=== PATIENT | female | born 1960 | race Caucasian/White ===

== ENCOUNTER → 2016-04-30 | Outpatient (CLI) | payer BC ==
[~2016-04-30] MED LIST: ACET-2303 PO; CATHETER FLUSH 10 ML SYR IV PRN; CPR500T PO; CYCL10TA9 PO; HYOS0.1217 PO; KETO-22 PO; LACT1CAP62 PO; LEVO150T6 PO; LEVO175T31 PO; LEVO75TA6 PO; METF-760 PO; METF500T8 PO; METR500T PO; MULT-974 PO; OMG1KC PO; ONDAN4ODT PO; OXYC-197 PO; PANT40TA3 PO; PNT40TEC PO; TRAM50TA2 PO; TRAZ50TA67 PO; TRM50T PO
--- OUTSIDE RECORDS SUMMARY | 2016-04-30 10:35 | XMS REPORT | Continuity of Care Document ---
Author Author [facility] Organization [facility] Address Unknown Phone Unavailable Care Team Providers Care Steel Burner Name Role Phone BETH BAIN DO PCP Insurance Providers Payer Name Policy Number Subscriber Name Relationship [facility] [id number] Kay Osman Self / Same As Patient Advance Directives Directive Response Recorded Date/Time Advance Directives No 06/06/15 11:18am Health Care Power of Mission Coordinator No 06/06/15 11:18am Organ Donor No 06/06/15 11:18am Problems Active Problems Medical Problem Onset Date Status Small bowel obstruction Unknown Acute Medications Current Home Medications Medication Dose Units Route Directions Days/Qty Instructions Start Date Trazodone Hcl 50 Mg 50 Mg Oral Bedtime 05/30/12 Acetaminophen 500 Mg 1,000 Mg Oral Twice A Day TAKES 2 (500MG) TABLETS TWICE DAILY 05/30/12 Levothyroxine Sodium 150 Mcg 150 Mcg Oral Daily 06/01/15 Pantoprazole Sodium 40 Mg 40 Mg Oral Daily 06/01/15 Lactobacillus Acidophilus 1 Each 1 Each Oral Daily 06/01/15 Metformin Hcl 500 Mg 500 Mg Oral Daily 06/01/15 Past Home Medications Medication Directions Ordered Status Levothyroxine Sodium 175 Mcg Tablet, 175 Mcg Oral Daily 05/30/12 Discontinued Ciprofloxacin 500 Mg Tablet, 1 Tab Oral Twice A Day 05/30/12 Discontinued Metronidazole 500 Mg Tab, 1 Each Oral Three Times A Day 05/30/12 Discontinued Hyoscyamine Sulfate (Levsin) 0.125 Mg/Tab Tab.rapdis, 1 - 2 Each Oral Q4hr Prn 05/30/12 Discontinued Ketorolac Tromethamine 10 Mg Tablet, 10 Mg Oral Every 6 Hours as needed 05/30 Discontinued Tramadol Hcl 50 Mg Tab, 50 Mg Oral Q4-6HOURS as needed 05/30/12 Discontinued Ondansetron Hcl 4 Mg Tab, 4 Mg Oral Every 4HRS 05/30/12 Discontinued Cyclobenzaprine Hcl (Flexeril) 10 Mg Tablet, 1 Each Oral Q8hr Prn 06/04/12 Discontinued Fish Oil 1,000 Mg Cap, 1000 Mg Oral Daily 01/14/13 Discontinued Multivitamin 1 Each Tablet, 1 Tab Oral Daily 01/14/13 Discontinued Pantoprazole Sodium 40 Mg Tablet.dr, 1 Tab Oral Daily 01/16/13 Discontinued Social History Social History Problem Response Recorded Date/Time Alcohol Use Denies Use 01/14/2013 4:45am Recreational Drug Use No 01/14/2013 4:45am Recent Foreign Travel No 01/14/2013 4:45am Recent Infectious Disease Exposure No 01/14/2013 4:45am Hospitalization with Isolation Denies 01/16/2013 2:28pm Do you dip or chew tobacco? No 06/06/2015 11:15am Hospital Discharge Instructions No hospital discharge instructions. Plan of Care Discharge Date 08/17/15 6:40am Prescriptions See Medication Section Functional Status No functional status results. Allergies, Adverse Reactions, Alerts Allergen Type Severity Reaction Status Last Updated Sulfa (Sulfonamide Antibiotics) ([id number]) Adverse Reaction Mild MOUTH SORES Active 05/30/12 hydrocodone ([id number]) Adverse Reaction Mild DIZZINESS, NAUSEA Active DEMEROL Adverse Reaction Mild VOMITING Active 05/30/12 Immunizations Name Given Type Date of Influenza Vaccine 12/11/12 Historical Tetanus Booster (TDap) Unknown Historical Vital Signs No known vital signs results. Results No known relevant diagnostic tests, laboratory data and/or discharge summary. Procedures No known history of procedures. Encounters Encounter Location Arrival/Admit Date Discharge/Depart Date Attending Provider Registered Clinic [facility] 08/16/15 9:15pm PUJA CHRISTINE APRN
--- NOTE | 2016-04-30 16:08 | Diagnostic Imaging Report ---
EXAMINATION: HIDA with EF measurements Indication: Abdominal pain TECHNIQUE: After the intravenous administration of 5.2 mCi of Tc 99m Choletec, imaging over the abdomen was obtained. This was followed by administration of Ensure orally to stimulate intrinsic CCK secretion, followed by continued imaging with ejection fraction measured. FINDINGS: There is homogeneous uptake in the liver with prompt bile duct and gallbladder filling seen. Bowel activity is seen at 65 minutes. Based on further imaging and gallbladder area of interest activity measurements after the administration of Ensure, the gallbladder ejection fraction is estimated at 44%. IMPRESSION: 1. Normal hepatobiliary uptake and Gallbladder filling. 2. Borderline gallbladder ejection fraction. Correlate clinically. Dictated by: Dictated on workstation # [id number]
== END ==
LOC: CARD 10:32
PROVIDERS: ATTEND Nurse Practitioner Family
DX: R10.11 Right upper quadrant pain (principal)
CPT/HCPCS: 78227

== ENCOUNTER 2016-05-17 09:07 | Outpatient (CLI) | payer BC ==
[~2016-05-17] VITALS: Ht 167.6 cm; Wt 136.6 kg
[~2016-05-17 09:07] MED LIST changes: -CATHETER FLUSH 10 ML SYR IV PRN; -LEVO75TA6 PO; -METF-760 PO; -OXYC-197 PO; -TRAM50TA2 PO
[2016-05-17] MEDS ORDERED: TRAM50TA2 PO (09:22)
[2016-05-17] MEDS ORDERED: METF-760 PO (09:22)
[2016-05-17] MEDS ORDERED: LEVO75TA6 PO (09:22)
[2016-05-17 09:32] VITALS: BP 123/79
[2016-05-17 10:11] LABS: BASOPHILS % (AUTO) 0 % (0-10); EOSINOPHILS # (AUTO) 0.1 10^3/uL (0.0-0.3); EOSINOPHILS % (AUTO) 1 % (0-10); LYMPHOCYTES # (AUTO) 2.7 X 10^3 (1.0-4.0); LYMPHOCYTES % (AUTO) 46 % (12-44); MEAN CORPUSCULAR HEMOGLOBIN 33 PG (25-34); MEAN CORPUSCULAR HGB CONC 33 G/DL (32-36); MEAN CORPUSCULAR VOLUME 99 FL (80-99); MEAN PLATELET VOLUME 11.4 FL (7.4-10.4); MONOCYTES # (AUTO) 0.4 X 10^3 (0.0-1.0); MONOCYTES % (AUTO) 8 % (0-12); NEUTROPHILS # (AUTO) 2.6 X 10^3 (1.8-7.8); NEUTROPHILS % (AUTO) 44 % (42-75); PLATELET COUNT 177 10^3/uL (130-400); RED BLOOD COUNT 4.07 10^6/uL (4.35-5.85); RED CELL DISTRIBUTION WIDTH 12.1 % (10.0-14.5); WHITE BLOOD COUNT 5.8 10^3/uL (4.3-11.0)
[2016-05-24] MEDS ORDERED: OXYC-197 PO (10:02)
== END 2016-05-17 10:05 | disposition home or self-care (01) ==
LOC: PREOP 09:07
PROVIDERS: ATTEND Surgery Pediatric Surgery
DX: Z01.818 Encounter for other preprocedural examination (principal); Z11.2 Encounter for screening for other bacterial diseases; K82.8 Other specified diseases of gallbladder
CPT/HCPCS: 36415; 85025; 87081

== ENCOUNTER 2016-05-24 07:10 | Day surgery (SDC) | payer BC ==
[~2016-05-24] VITALS: Ht 167.6 cm; Wt 136.6 kg
[~2016-05-24 07:10] MED LIST changes: +LEVO75TA6 PO; +METF-760 PO; +TRAM50TA2 PO
[2016-05-24] MEDS ORDERED: BUP/EPI 0.5% 1:200,000 (SENSORCAINE) 30 ML VIAL ONE (07:30)
[2016-05-24] MEDS ORDERED: ceFAZolin 1 GM/NS 50 ML IVPB IV ONE ×2 (07:30)
[2016-05-24] MEDS ORDERED: fentaNYL INJECTION 250 MCG/5 ML AMP ONE (07:49)
[2016-05-24] MEDS ORDERED: ROCURONIUM 50 MG/5 ML (ZEMURON) VIAL IV ONE (07:49)
[2016-05-24] MEDS ORDERED: proPOfol 200 MG/20 ML (DIPRIVAN) VIAL IV ONE (07:49)
[2016-05-24] MEDS: LACTATED RINGERS 1,000 ML IV PRN ×2 (07:55→09:00)
--- NOTE | 2016-05-24 07:58 | Progress Note-Pre Operative ---
Pre-Operative Progress Note H&P Reviewed The H&P was reviewed, patient examined and no changes noted. Date H&P Reviewed: May 24, 2016 Time H&P Reviewed: 07:45 Pre-Operative Diagnosis: Biliary dyskinesia MARTIN SHANNON TMH TEACHER May 24, 2016 7:58 am
[2016-05-24] MEDS ORDERED: oxyCODONE/APAP 5/325MG (PERCOCET 5) TABLET PO PRN (08:00)
[2016-05-24] MEDS ORDERED: ONDANSETRON 4 MG/2 ML (SDV) Z0FRAN IVP PRN (08:00)
[2016-05-24] MEDS ORDERED: ACETAMINOPHEN 325 MG TABLET/CAPLET (TYLENOL) PO PRN (08:00)
[2016-05-24] MEDS ORDERED: morphine INJ 10 MG/ML 1ML (SYR OR VIAL) IVP PRN (08:00)
[2016-05-24] MEDS ORDERED: FAMOTIDINE 20MG/2ML IV (PEPCID) IV ONE (08:00)
[2016-05-24] MEDS ORDERED: SEVOFLURANE (ULTANE) 15 ML INHAL SOLN ONE (09:15)
[2016-05-24] MEDS ORDERED: ONDANSETRON 4 MG/2 ML (SDV) Z0FRAN ONE ×2 (09:15→10:47)
[2016-05-24] MEDS ORDERED: KETOROLAC 30 MG/ML VIAL ONE (09:15)
[2016-05-24] MEDS ORDERED: LABETALOL HCL 20 MG/4 ML VIAL ONE (09:15)
[2016-05-24] MEDS ORDERED: LACTATED RINGERS 2,000 ML IV ONE (09:15)
--- NOTE | 2016-05-24 09:59 | Progress Note-Post Operative ---
Post-Operative Progess Note Surgeon (s)/Ship Design Teacher (s) Surgeon ALEJANDRINA PERRIN MD Ship Design Teacher: [facility] Pre-Operative Diagnosis Biliary dyskinesia Post-Operative Diagnosis chronic acalculous cholecytitis. Post-Op Procedure Note Date of Procedure: May 24, 2016 Name of Procedure Performed: laparoscopic cholecystectomy Description of the Procedure: laparoscopic cholecystectomy Findings of the Procedure . Anesthesia Type GET Estimated blood loss (mL): minimal Specimen(s) collected/removed gallbladder ALEJANDRINA PERRIN MD May 24, 2016 9:59 am
[2016-05-24] MEDS ORDERED: OXYC-197 PO (10:02)
--- NOTE | 2016-05-24 10:04 | Discharge Inst-Surgical ---
D/C Lap Instructions-KIDO New, Converted, or Re-Newed RX: RX on Chart Follow Up Appt in 2 weeks Activity as tolerated No driving for 24 hours No driving while on pain medications Incentive Spirometry use every 2 hours while awake High Fiber Diet 25g or more per day Avoid Alcohol, Caffeine, Spicy [place] and Acid foods. Drink 64 fluid oz or more of fluids per day. Symptoms to Report: Fever over 101 degree F, Nausea/Vomiting If any problems/questions: Contact your physician or go to Emergency Room ALEJANDRINA PERRIN MD May 24, 2016 10:04
[2016-05-24] MEDS ORDERED: ONDANSETRON 4 MG/2 ML (SDV) Z0FRAN IV PRN (10:15)
[2016-05-24] MEDS ORDERED: morphine INJ 10 MG/ML 1ML (SYR OR VIAL) IV PRN (10:15)
[2016-05-24 11:05] VITALS: BP 156/86
[2016-05-24 11:35] VITALS: BP 143/75
[2016-05-24 12:05] VITALS: BP 138/91
[2016-05-24 13:51] VITALS: BP 138/91
--- NOTE | 2016-05-24 13:54 | OPERATIVE REPORT ---
PROCEDURE PHYSICIAN: ALEJANDRINA WILKINSON DATE OF PROCEDURE: 05/24/2016 ATTENDING PRIMARY CARE PHYSICIAN: Dr. Bird. PREOPERATIVE DIAGNOSIS: Symptomatic biliary dyskinesia. POSTOPERATIVE DIAGNOSIS: Symptomatic chronic acalculous cholecystitis. PROCEDURE: Laparoscopic cholecystectomy. SURGEON: Dr. Wilkinson. TAX COLLECTOR: Bert Farr APRN. ANESTHESIA: General endotracheal. ESTIMATED BLOOD LOSS: Minimal. FINDINGS: Chronic gallbladder wall inflammation, significant liver steatosis. DISPOSITION: The patient tolerated the procedure well. Ms. Kay Osman is a 55-year-old female known to us. She was initially seen in January 2006 for a large cyst of the distal right inner thigh and found to have a chronically infected cystic lesion and underwent incision and drainage. She reports that in the past 3 to 4 she has had pain in the right upper abdominal quadrant with radiation towards her back. She also reports this is worse after eating and she also reports abdominal epigastric bloating. She had ultrasound performed November 2015 which did not show any stones. She then underwent a HIDA scan which did show low ejection fraction and she did have severe reproduction of symptoms consistent with a symptomatic biliary dyskinesia. The patient was brought to the operating room and laid supine on the table. After adequate IV pain and sedative medications and general endotracheal intubation the abdomen was prepped and draped in standard surgical fashion. 0.5% Marcaine with epinephrine was then used to anesthetize the overlying skin in the left upper abdominal quadrant a small transverse skin incision made using a 15 blade. An 0 silk suture was applied to the medial aspect of the incision for retraction. A Veress needle inserted with a low opening pressure of 0 mmHg and the abdomen was then insufflated to 15 mmHg pressure. The Veress needle removed and a 5 mm Xcel trocar placed followed by a 5 mm, 45 degrees angle laparoscope, visualizing the peritoneal cavity. A four-quadrant abdominal exploration was performed. There was a significant liver steatosis. There was chronic gallbladder wall inflammation. Under direct visualization we then proceeded to place a supraumbilical 10 mm port after the skin and peritoneum were anesthetized using 0.5% Marcaine with epinephrine and a transverse incision made using a 15 blade. In a similar manner, a right upper abdominal quadrant 5 mm port was placed. The patient was then placed in reverse Trendelenburg position as well as planed right side up, left side down. The fundus of the gallbladder was then retracted anteriorly and superiorly. The hepatoduodenal ligament was then opened using electrocautery on the hook instrument. The entire critical view of safety was then dissected out including the triangle of Calot, the cystic duct and artery going into the gallbladder, as well as the liver behind the proximal gallbladder. A timeout was then taken the cystic duct and artery were then clipped proximally and distally and cut with Endo Berto. The gallbladder was then dissected off the liver bed, using cautery on the hook instrument with visualization of good hemostasis, as well as no leaking ducts of Luschka. The gallbladder was removed through the 10 mm port site using an Endo Catch bag. The 10 mm port site, fascia and peritoneum were then closed with multiple interrupted 0 Vicryl sutures. The abdomen was desufflated and the remaining ports removed. The skin incisions were then closed using 4-0 Monocryl running subcuticular sutures. Wounds were then cleaned and covered Dermabond. The patient tolerated the procedure well. We will start IV and oral pain medication as well as a clear liquid diet. Once she is tolerating clears, has good pain control with oral pain medications and ambulating well, we will discharge her home. Job ID: [id number] Dictated Date: 05/24/2016 10:14:23 Shade Matcher Date: 05/24/2016 13:43:16 / bacilio
--- OUTSIDE RECORDS SUMMARY | 2016-06-24 20:51 | XMS REPORT | Continuity of Care Document ---
Author Author [facility] Organization [facility] Address Unknown Phone Unavailable Allergies Active Description Code Type Severity Reaction Onset Reported/Identified Relationship to Patient Clinical Status Yes DEMEROL DEMEROL Mild VOMITING 05/30/2012 Yes hydrocodone [id number] Drug Allergy Mild DIZZINESS, NAUS 06/06/2015 Yes Sulfa (Sulfonamide Antibiotics) [id number] Drug Allergy Mild MOUTH SORES 06/06/2015 Yes Sulfa (Sulfonamide Antibiotics) [id number] Drug Allergy Severe RASH IN MOUTH 05/17/2016 Yes hydrocodone [id number] Drug Allergy Moderate GI UPSET 05/17/2016 Yes meperidine [id number] Drug Allergy Moderate GI UPSET 05/17/2016 Medications Problems Date Dx Coded Attending Type Code Diagnosis Diagnosed By 05/24/2015 BETH BAIN DO Ot 255.9 05/24/2015 GELLENDER DOBETH Ot 571.8 05/24/2015 GELLENDER DOBETH Ot 578.9 05/24/2015 GELLENDER DOBETH Ot 783.1 05/24/2015 GELLENDER DOBETH Ot 789.00 05/24/2015 GELLENDER DOBETH Ot 789.30 05/25/2015 GELLENDER DOBETH Ot K76.0 05/27/2015 GELLENDER DOBETH Ot K76.0 06/01/2015 BELGICA DUARTE, SHERI Bangura Ot K92.1 06/01/2015 BELGICA DUARTE, SHERI Bangura Ot Z01.818 06/01/2015 BELGICA DUARTE, SHERI Bangura Ot K92.1 MELENA 06/01/2015 BELGICA DUARTE, SHERI Bangura Ot Z01.818 ENCOUNTER FOR OTHER PREPROCEDURAL EXAMIN 06/06/2015 BELGICA DUARTE, SHERI Bangura Ot E11.9 TYPE 2 DIABETES MELLITUS WITHOUT COMPLIC 06/06/2015 BELGICA DUARTE, SHERI Bangura Ot K29.70 GASTRITIS, UNSPECIFIED, WITHOUT BLEEDING 06/06/2015 SHERI LINDO MD Ot K57.90 DVRTCLOS OF INTEST, PART UNSP, W/O PERF 06/06/2015 SHERI LINDO MD Ot K62.1 RECTAL POLYP 06/06/2015 SHERI LINDO MD Ot K63.5 POLYP OF COLON 06/06/2015 SHERI LINDO MD Ot K64.4 RESIDUAL HEMORRHOIDAL SKIN TAGS 06/07/2015 SHERI LINDO MD Ot E11.9 TYPE 2 DIABETES MELLITUS WITHOUT COMPLIC 06/07/2015 SHERI LINDO MD Ot K29.70 GASTRITIS, UNSPECIFIED, WITHOUT BLEEDING 06/07/2015 SHERI LINDO MD Ot K57.90 DVRTCLOS OF INTEST, PART UNSP, W/O PERF 06/07/2015 SHERI LINDO MD Ot K62.1 RECTAL POLYP 06/07/2015 SHERI LINDO MD Ot K63.5 POLYP OF COLON 06/07/2015 SHERI LINDO MD Ot K64.4 RESIDUAL HEMORRHOIDAL SKIN TAGS 06/09/2015 BETH BAIN DO Ot K76.0 FATTY (CHANGE OF) LIVER, NOT ELSEWHERE C 06/16/2015 SHERI LINDO MD Ot E11.9 TYPE 2 DIABETES MELLITUS WITHOUT COMPLIC 06/16/2015 SHERI LINDO MD Ot K29.70 GASTRITIS, UNSPECIFIED, WITHOUT BLEEDING 06/16/2015 SHERI LINDO MD Ot K57.90 DVRTCLOS OF INTEST, PART UNSP, W/O PERF 06/16/2015 SHERI LINDO MD Ot K62.1 RECTAL POLYP 06/16/2015 SHERI LINDO MD Ot K63.5 POLYP OF COLON 06/16/2015 SHERI LINDO MD Ot K64.4 RESIDUAL HEMORRHOIDAL SKIN TAGS 06/17/2015 SHERI LINDO MD Ot E11.9 TYPE 2 DIABETES MELLITUS WITHOUT COMPLIC 06/17/2015 SHERI LINDO MD Ot K29.70 GASTRITIS, UNSPECIFIED, WITHOUT BLEEDING 06/17/2015 SHERI LINDO MD Ot K57.90 DVRTCLOS OF INTEST, PART UNSP, W/O PERF 06/17/2015 SHERI LINDO MD Ot K62.1 RECTAL POLYP 06/17/2015 BELGICA DUARTE, SHERI Bangura Ot K63.5 POLYP OF COLON 06/17/2015 BELGICA DUARTE, SHERI Bangura Ot K64.4 RESIDUAL HEMORRHOIDAL SKIN TAGS 08/17/2015 PUJA CHRISTINE ADMISSIONS OFFICER Ot G47.33 OBSTRUCTIVE SLEEP APNEA (ADULT) ( PEDIATR 11/23/2015 SINGLETON, LEE L ADMISSIONS OFFICER Ot R06.02 SHORTNESS OF BREATH 11/23/2015 ARELI LEE L ADMISSIONS OFFICER Ot R07.9 CHEST PAIN, UNSPECIFIED 11/23/2015 ARELI LEE L ADMISSIONS OFFICER Ot R10.11 RIGHT UPPER QUADRANT PAIN 11/24/2015 BETH BAIN DO Ot 255.9 ADRENAL DISORDER N0S 11/24/2015 [facility] BETH GUTIÉRREZ Ot 571.8 CHRONIC LIVER DIS NEC 11/24/2015 [facility] BETH GUTIÉRREZ Ot 578.9 GASTROINTEST HEMORR NOS 11/24/2015 [facility] BETH GUTIÉRREZ Ot 783.1 ABNORMAL WEIGHT GAIN [facility] 789.00 ABDOMINAL PAIN, UNSPECIFIED SITE 11/24/2015 [facility] BETH GUTIÉRREZ Ot 789.30 ABDOMINAL/PELVIC SWELLING,MASS/LUMP UNSP 11/24/2015 BETH BAIN DO Ot K76.0 FATTY (CHANGE OF) LIVER, NOT ELSEWHERE C 11/24/2015 ARELI LEE L ADMISSIONS OFFICER Ot R06.02 SHORTNESS OF BREATH 11/24/2015 ARELI LEE L ADMISSIONS OFFICER Ot R07.9 CHEST PAIN, UNSPECIFIED 11/24/2015 ARELI LEE L ADMISSIONS OFFICER Ot R10.11 RIGHT UPPER QUADRANT PAIN 11/25/2015 ARELI LEE L ADMISSIONS OFFICER Ot K76.0 FATTY (CHANGE OF) LIVER, NOT ELSEWHERE C 11/25/2015 ARELI LEE L ADMISSIONS OFFICER Ot R10.11 RIGHT UPPER QUADRANT PAIN 12/07/2015 ARELI LEE L ADMISSIONS OFFICER Ot R06.02 SHORTNESS OF BREATH 12/07/2015 SINGLETON LEE L ADMISSIONS OFFICER Ot R07.9 CHEST PAIN, UNSPECIFIED 12/07/2015 SINGLETON, LEE L ADMISSIONS OFFICER Ot R10.11 RIGHT UPPER QUADRANT PAIN 12/07/2015 ARELI LEE L ADMISSIONS OFFICER Ot K76.0 FATTY (CHANGE OF) LIVER, NOT ELSEWHERE C 12/07/2015 LEE SINGLETON Jan ADMISSIONS OFFICER Ot R10.11 RIGHT UPPER QUADRANT PAIN 05/01/2016 MARTIN SHANNON ADMISSIONS OFFICER Ot R10.11 RIGHT UPPER QUADRANT PAIN 05/06/2016 MARTIN SHANNON ADMISSIONS OFFICER Ot R10.11 RIGHT UPPER QUADRANT PAIN 05/16/2016 MARTIN SHANNON ADMISSIONS OFFICER Ot R10.11 RIGHT UPPER QUADRANT PAIN 05/17/2016 ALEJANDRINA PERRIN MD Ot K82.8 OTHER SPECIFIED DISEASES OF GALLBLADDER 05/17/2016 ALEJANDRINA PERRIN MD Ot Z01.818 ENCOUNTER FOR OTHER PREPROCEDURAL EXAMIN 05/17/2016 ALEJANDRINA PERRIN MD Ot Z11.2 ENCOUNTER FOR SCREENING FOR OTHER BACTER 05/18/2016 ALEJANDRINA PERRIN MD Ot K82.8 OTHER SPECIFIED DISEASES OF GALLBLADDER 05/18/2016 ALEJANDRINA PERRIN MD, Ot Z01.818 ENCOUNTER FOR OTHER PREPROCEDURAL EXAMIN 05/18/2016 ALEJANDRINA PERRIN MD Ot Z11.2 ENCOUNTER FOR SCREENING FOR OTHER BACTER 05/24/2016 BETH BAIN DO Ot 255.9 ADRENAL DISORDER N0S 05/24/2016 [facility] 571.8 CHRONIC LIVER DIS NEC 05/24/2016 [facility] Ot 578.9 GASTROINTEST HEMORR NOS 05/24/2016 [facility] Ot 783.1 ABNORMAL WEIGHT GAIN 05/24/2016 BETH BAIN DO Ot 789.00 ABDOMINAL PAIN, UNSPECIFIED SITE 05/24/2016 [facility] Ot 789.30 ABDOMINAL/PELVIC SWELLING,MASS/LUMP UNSP 05/24/2016 [facility] Ot K76.0 FATTY (CHANGE OF) LIVER, NOT ELSEWHERE C 05/24/2016 LEE SINGLETON ADMISSIONS OFFICER Ot R06.02 SHORTNESS OF BREATH 05/24/2016 LEE SINGLETON ADMISSIONS OFFICER Ot R07.9 CHEST PAIN, UNSPECIFIED 05/24/2016 ARELI LEE L ADMISSIONS OFFICER Ot R10.11 RIGHT UPPER QUADRANT PAIN 05/24/2016 ARELI LEE L ADMISSIONS OFFICER Ot K76.0 FATTY (CHANGE OF) LIVER, NOT ELSEWHERE C 05/24/2016 LEE SINGLETON ADMISSIONS OFFICER Ot R10.11 RIGHT UPPER QUADRANT PAIN 05/24/2016 MARTIN SHANNON ADMISSIONS OFFICER Ot R10.11 RIGHT UPPER QUADRANT PAIN 05/24/2016 ALEJANDRINA PERRIN MD, Ot E11.9 TYPE 2 DIABETES MELLITUS WITHOUT COMPLIC 05/24/2016 ALEJANDRINA PERRIN MD, Ot K81.1 CHRONIC CHOLECYSTITIS 05/24/2016 ALEJANDRINA PERRIN MD, Ot Z79.84 OVERHEAD IRRIGATOR (CURRENT) USE OF ORAL HYPOGLYC 05/30/2016 ALEJANDRINA PERRIN MD, Ot E11.9 TYPE 2 DIABETES MELLITUS WITHOUT COMPLIC 05/30/2016 ALEJANDRINA PERRIN MD, Ot K81.1 CHRONIC CHOLECYSTITIS 05/30/2016 ALEJANDRINA PERRIN MD, Ot Z79.84 OVERHEAD IRRIGATOR (CURRENT) USE OF ORAL HYPOGLYC Procedures Results Test Result Range Complete blood count (CBC) with automated white blood cell (WBC) differential - 11/21/15 18:15 Blood leukocytes automated count (number/volume) 7.5 10*3/ uL 4.3-11.0 Blood erythrocytes automated count (number/volume) 3.88 10*6 /uL 4.35-5.85 Venous blood hemoglobin measurement (mass/volume) 12.8 g/dL 11.5-16.0 Blood hematocrit (volume fraction) 38 % 35-52 Automated erythrocyte mean corpuscular volume 98 [foz_us] 80-99 Automated erythrocyte mean corpuscular hemoglobin (mass per erythrocyte) 33 pg 25-34 Automated erythrocyte mean corpuscular hemoglobin concentration measurement ( mass/volume) 34 g/dL 32-36 Automated erythrocyte distribution width ratio 12.1 % 10.0-14.5 Automated blood platelet count (count/volume) 186 10*3/uL 130-400 Automated blood platelet mean volume measurement 11.0 [foz_ us] 7.4-10.4 Automated blood neutrophils/100 leukocytes 42 % 42-75 Automated blood lymphocytes/100 leukocytes 49 % 12-44 Blood monocytes/100 leukocytes 9 % 0-12 Automated blood eosinophils/100 leukocytes 1 % 0-10 Automated blood basophils/100 leukocytes 0 % 0-10 Blood neutrophils automated count (number/volume) 3.1 10*3 1.8-7.8 Blood lymphocytes automated count (number/volume) 3.7 10*3 1.0-4.0 Blood monocytes automated count (number/volume) 0.6 10*3 0.0-1.0 Automated eosinophil count 0.1 10*3/uL 0.0-0.3 Automated blood basophil count (count/volume) 0.0 10*3/uL 0.0-0.1 Comprehensive metabolic panel - 11/21/15 18:15 Serum or plasma sodium measurement (moles/volume) 140 mmol/ L 135-145 Serum or plasma potassium measurement (moles/volume) 4.0 mmol/L 3.6-5.0 Serum or plasma chloride measurement (moles/volume) 103 mmol /L 98-107 Carbon dioxide 22 mmol/L 21-32 Serum or plasma anion gap determination (moles/volume) 15 mmol/L 5-14 Serum or plasma urea nitrogen measurement (mass/volume) 10 mg/dL 7-18 Serum or plasma creatinine measurement (mass/volume) 0.76 mg /dL 0.60-1.30 Serum or plasma urea nitrogen/creatinine mass ratio 13 NRG Serum or plasma creatinine measurement with calculation of estimated glomerular filtration rate > NRG Serum or plasma glucose measurement (mass/volume) 105 mg/dL 70-105 Serum or plasma calcium measurement (mass/volume) 9.3 mg/dL 8.5-10.1 Serum or plasma total bilirubin measurement (mass/volume) 0.2 mg/dL 0.1-1.0 Serum or plasma alkaline phosphatase measurement (enzymatic activity/volume) 81 U/L 40-136 Serum or plasma aspartate aminotransferase measurement (enzymatic activity/ volume) 23 U/L 5-34 Serum or plasma alanine aminotransferase measurement (enzymatic activity/volume ) 19 U/L 0-55 Serum or plasma protein measurement (mass/volume) 6.9 g/dL 6.4-8.2 Serum or plasma albumin measurement (mass/volume) 4.1 g/dL 3.2-4.5 Serum or plasma creatine kinase MB measurement (enzymatic activity/volume) - 18:15 Serum or plasma creatine kinase MB measurement (enzymatic activity/volume) 1.3 ng/mL <6.6 Serum or plasma troponin i.cardiac measurement (mass/volume) - 11/21/15 18:15 Serum or plasma troponin i.cardiac measurement (mass/volume) < ng/mL <0.30 Myoglobin, serum - 11/21/15 18:15 Myoglobin, serum 38.3 ng/mL 10.0-92.0 Serum or plasma amylase measurement (enzymatic activity/volume) - 11/21/15 18: 15 Serum or plasma amylase measurement (enzymatic activity/volume) 30 U/L 25-125 Lipase - 11/21/15 18:15 Lipase 16 U/L 8-78 Complete blood count (CBC) with automated white blood cell (WBC) differential - 05/17/16 09:40 Blood leukocytes automated count (number/volume) 5.8 10*3/ uL 4.3-11.0 Blood erythrocytes automated count (number/volume) 4.07 10*6 /uL 4.35-5.85 Venous blood hemoglobin measurement (mass/volume) 13.3 g/dL 11.5-16.0 Blood hematocrit (volume fraction) 40 % 35-52 Automated erythrocyte mean corpuscular volume 99 [foz_us] 80-99 Automated erythrocyte mean corpuscular hemoglobin (mass per erythrocyte) 33 pg 25-34 Automated erythrocyte mean corpuscular hemoglobin concentration measurement ( mass/volume) 33 g/dL 32-36 Automated erythrocyte distribution width ratio 12.1 % 10.0-14.5 Automated blood platelet count (count/volume) 177 10*3/uL 130-400 Automated blood platelet mean volume measurement 11.4 [foz_ us] 7.4-10.4 Automated blood neutrophils/100 leukocytes 44 % 42-75 Automated blood lymphocytes/100 leukocytes 46 % 12-44 Blood monocytes/100 leukocytes 8 % 0-12 Automated blood eosinophils/100 leukocytes 1 % 0-10 Automated blood basophils/100 leukocytes 0 % 0-10 Blood neutrophils automated count (number/volume) 2.6 10*3 1.8-7.8 Blood lymphocytes automated count (number/volume) 2.7 10*3 1.0-4.0 Blood monocytes automated count (number/volume) 0.4 10*3 0.0-1.0 Automated eosinophil count 0.1 10*3/uL 0.0-0.3 Automated blood basophil count (count/volume) 0.0 10*3/uL 0.0-0.1 Methicillin resistant Staphylococcus aureus (MRSA) screening culture - 09:40 Methicillin resistant Staphylococcus aureus (MRSA) screening culture NEG NRG Capillary blood glucose measurement by glucometer (mass/volume) - 05/24/16 07: 46 Capillary blood glucose measurement by glucometer (mass/volume) 140 mg/dL 70-110 Encounters ACCT No. Visit Date/Time Discharge Status Pt. Type Provider Facility Loc./Unit Complaint [id number] 05/24/2016 07:10:00 2016 13:51:00 DIS Outpatient ALEJANDRINA PERRIN MD [facility] SDC BILIARY DYSKINESIA [id number] 05/17/2016 09:07:00 2016 10:05:00 DIS Outpatient ALEJANDRINA PERRIN MD [facility] PREOP BILIARY DYSKINESIA [id number] 08/16/2015 21:15:00 2015 06:40:00 DIS Outpatient PUJA CHRISTINE APRN [facility] SLEEP SNORING,OBESITY,EXCESSIVE DAYTIME SLEEPINESS [id number] 06/06/2015 09:21:00 2015 13:25:00 DIS Outpatient SHERI LINDO MD [facility] SDC BLOOD IN STOOL [id number] 06/01/2015 05:53:00 2015 14:17:00 DIS Outpatient SHERI LINDO MD [facility] PREOP BLOOD IN STOOL [id number] 06/22/2013 07:26:00 2013 23:59:59 CLS Outpatient BETH BAIN DO [facility] RAD ABD PAIN,GAINING WEIGHT [id number] 01/14/2013 03:45:00 2012 14:00:00 DIS Inpatient [id number] 04/30/2016 10:32:00 ACT Outpatient MARTIN SHANNON ADMISSIONS OFFICER [facility] CARD RUQ PAIN [id number] 11/24/2015 07:24:00 ACT Outpatient LEE SINGLETON ADMISSIONS OFFICER [facility] RAD RUQ PAIN [id number] 11/21/2015 18:01:00 ACT Outpatient LEE SINGLETON ADMISSIONS OFFICER [facility] LAB RUQ PAIN,SOA,CHEST PAIN [id number] 05/24/2015 07:27:00 ACT Outpatient BETH BAIN DO [facility] RAD RUQ PAIN
== END 2016-05-24 13:51 | disposition home or self-care (01) ==
LOC: SDC 07:10
PROVIDERS: ATTEND Surgery Pediatric Surgery
DX: K81.1 Chronic cholecystitis (principal); E11.9 Type 2 diabetes mellitus without complications; Z79.84 Long term (current) use of oral hypoglycemic drugs
CPT/HCPCS: 82962; 88304; 94664

== ENCOUNTER 2016-11-11 19:58 | Emergency (ER) | payer BC ==
[~2016-11-11] VITALS: Ht 170.2 cm; Wt 122.5 kg
[~2016-11-11 19:58] MED LIST changes: +OXYC-197 PO
--- NOTE | 2016-11-11 20:58 | ED Cough/URI ---
General Chief Complaint: Cough/Cold/Flu Symptoms Stated Complaint: FLU SYMPTOMS Nursing Triage Note: Pt. advises saturday night around 2200 she began experiencing a stuffy nose, chills and a scratchy throat that has not improved. Source: patient Exam Limitations: no limitations History of Present Illness Time seen by provider: 20:58 Initial Comments 55-year-old female patient presents to the emergency department with complaints of like symptoms. Reports Saturday night at 2200 she began having nasal congestion, rhinorrhea, sneezing, sore throat, body aches, and fevers. Timing/Duration: getting worse, other (2 day onset) Severity/Quality: dry cough Prior Episodes/Possible Cause: no prior episodes Modifying Factors: Worse With Coughing Allergies and Home Medications Allergies Coded Allergies: Sulfa (Sulfonamide Antibiotics) (Verified Allergy, Severe, RASH IN MOUTH, 05/17/16) hydrocodone (Verified Allergy, Intermediate, GI UPSET, 05/17/16) meperidine (Verified Allergy, Intermediate, GI UPSET, 05/17/16) Home Medications Acetaminophen 500 Mg Tab, 1,000 MG PO BID, (Reported) TAKES 2 (500MG) TABLETS TWICE DAILY Lactobacillus Acidophilus 1 Each Capsule, 1 EACH PO DAILY, (Reported) Levothyroxine Sodium 75 Mcg Tablet, 75 MCG PO DAILY, (Reported) Metformin HCl 500 Mg Pahheqi13e, 500 MG PO BID, (Reported) Oxycodone HCl/Acetaminophen 1 Each Tablet, 1-2 EACH PO Q4H, #35 Prescribed by: ALEJANDRINA PERRIN on 05/24/16 1002 Pantoprazole Sodium 40 Mg Tablet.dr, 40 MG PO DAILY, (Reported) Tramadol HCl 50 Mg Tablet, 50 MG PO PRN, (Reported) Trazodone Hcl 50 Mg Tablet, 50 MG PO HS, (Reported) Constitutional: chills, fever, malaise, other (fatigue) EENTM: ear pain, nose congestion, throat pain, No eye pain, No mouth pain, No throat swelling Respiratory: cough, No short of breath, No stridor, No wheezing Cardiovascular: no symptoms reported Gastrointestinal: No abdominal pain, No constipation, No diarrhea, loss of appetite, No nausea, No vomiting Genitourinary: no symptoms reported Musculoskeletal: see HPI, other (generalized body aches) Skin: no symptoms reported Psychiatric/Neurological: No Symptoms Reported All Other Systems Reviewed Negative Unless Noted: Yes (Negative excepted noted.) Past Teensvi-Btksil-Dvhhej Hx Patient Social History Alcohol Use: Denies Use Recreational Drug Use: No Smoking Status: Former Smoker Type Used: Cigarettes Former Smoker, Quit: Jan 18, 2012 Recent Foreign Travel: No Contact w/Someone Who Travel: No Recent Infectious Disease Expo: No Recent Hopitalizations: No Physical Abuse: No Sexual Abuse: No Immunizations Up To Date Tetanus Booster (TDap): Unknown Date of Influenza Vaccine: Nov 10, 2015 Seasonal Allergies Seasonal Allergies: No Surgeries History of Surgeries: Yes (ORAL SURGERY to fix JAW, L KNEE SCOPE) Surgeries: Hysterectomy Respiratory History of Respiratory Disorde: No Respiratory Disorders: Sleep Apnea Currently Using CPAP: No Cardiovascular History of Cardiac Disorders: Yes (TACHYCARDIA R/T THYROID ) Cardiac Disorders: Palpitations Neurological History of Neurological Disord: No Reproductive System Hx Reproductive Disorders: No Sexually Transmitted Disease: No HIV/AIDS: 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 Genitourinary Genitourinary Disorders: Bladder Infection Gastrointestinal History of Gastrointestinal Di: Yes (HX ILEUS) Gastrointestinal Disorders: Gastroesophageal Reflux, Chronic Constipation, Diverticulosis, Irritable Bowel Musculoskeletal History of Musculoskeletal Dis: Yes (muscle pain all over) Musculoskeletal Disorders: Degenerate Disk Disease, Arthritis, Fibromyalgia, Chronic Back Pain Endocrine History of Endocrine Disorders: Yes Endocrine Disorders: Hypothyroidsim HEENT Loss of Vision: Bilateral Hearing Impairment: Denies Cancer History of Cancer: No Psychosocial History of Psychiatric Problem: Yes Behavioral Health Disorders: Depression Suicide Risk Score: 0 Integumentary History of Skin or Integumenta: Yes (RASH/ACNE UNDER ARMS AND BREAST) Blood Transfusions History of Blood Disorders: No Adverse Reaction to a Blood Tr: No Reviewed Nursing Assessment Reviewed/Agree w Nursing PMH: Yes Family Medical History Significant Family History: No Pertinent Family Hx Family Medial History: Alcoholism 09 BROTHER, Onset:Unknown Cancer 03 FATHER, Onset:Unknown 09 BROTHER, Onset:Unknown Cataract 03 MOTHER, Onset:Unknown Congestive heart failure 03 MOTHER, Onset:Unknown Family history: Diabetes mellitus 03 FATHER, Onset:Unknown 03 MOTHER, Onset:Unknown Family history: Thyroid disorder 03 MOTHER, Onset:Unknown Heart disease 03 FATHER, Onset:Unknown History of drug abuse 09 BROTHER, Onset:Unknown Physical Exam Vital Signs Vital Sign - Last 12Hours 11/11/16 20:30 Temp 99.1 Pulse 101 Resp 14 B/P (MAP) 144/97 Pulse Ox 99 O2 Delivery Room Air Capillary Refill : Less Than 3 Seconds General Appearance: WD/WN, no apparent distress HEENT: PERRL/EOMI, TMs normal, pharyngeal erythema, other (positive nasal congestion and rhinorrhea) Neck: non-tender, full range of motion, supple, No lymphadenopathy (R), lymphadenopathy (L) Respiratory: lungs clear, normal breath sounds, no respiratory distress, no accessory muscle use Cardiovascular: normal peripheral pulses, regular rate, rhythm, no murmur Gastrointestinal: normal bowel sounds, non tender, soft, no organomegaly, No distended Extremities: normal capillary refill Neurologic/Psychiatric: alert, normal mood/affect, oriented x 3 Skin: normal color, warm/dry Progress/Results/Core Measures Results/Orders Micro Results Microbiology 11/11/16 Influenza Types A,B Antigen (MALAIKA) - Final, Complete Vital Signs/I&O Vital Sign - Last 12Hours 11/11/16 11/11/16 20:30 20:30 Temp 99.1 Pulse 101 Resp 14 B/P (MAP) 144/97 Pulse Ox 99 O2 Delivery Room Air Room Air Blood Pressure Mean: 113 Departure Impression Impression: Primary Impression: Influenza-like symptoms Disposition: 01 HOME, SELF-CARE Condition: Improved Departure-Patient Inst. Decision time for Depature: 21:14 Referrals: BETH BAIN DO (PCP/Family) Primary Care Physician Patient Instructions: Flu, Adult (DC), Viral Upper Respiratory Infection, Adult (DC) Add. Discharge Instructions: All discharge instructions reviewed with patient and/or family. Voiced understanding. Medications as instructed. Tylenol extra strength over-the- counter as directed for pain or fever. Ibuprofen 800 mg by mouth every 8 hours as needed for pain or fever. Drink plenty of fluids. Cool humidifier. Saline nasal spray and Afrin nasal spray [id number] as needed for nasal congestion. Follow-up with your primary care physician if no improvement in symptoms. Return in the emergency department for worsened symptoms or any other concerns. Scripts Prednisone (Prednisone) 20 Mg Tab 40 MG PO DAILY, #10 TAB 0 Refills Prov: VIVEK PRATHER 11/11/16 Benzonatate (Benzonatate) 200 Mg Capsule 200 MG PO Q8H Y for COUGH, #30 CAP 0 Refills Prov: VIVEK PRATHER 11/11/16 Work/School Note: Work Release Form Date Seen in the Emergency Department: Nov 11, 2016 Return to Work: Nov 13, 2016 Restrictions: Return-No Fever (24hrs) VIVEK PRATHER Nov 11, 2016 20:58
[2016-11-11] MEDS ORDERED: DEXAMETHASONE PF 10 MG/ML (DECADRON) VIAL IM STA (21:10)
[2016-11-11] MEDS ORDERED: IBUPROFEN 800 MG (MOTRIN) TAB PO STA (21:10)
[2016-11-11] MEDS ORDERED: BENZONATATE 100 MG (TESSALON) CAPSULE PO ONE (21:15)
[2016-11-11] MEDS ORDERED: PRD20T PO (21:16)
[2016-11-11] MEDS ORDERED: BENZ200C51 PO (21:16)
[2016-11-11] MEDS ORDERED: DEXAMETHASONE 10 MG/ML (DECADRON) 1 ML VIAL ONE (21:20)
[2016-11-11] MEDS ORDERED: DEXAMETHASONE 10 MG/ML (DECADRON) 1 ML VIAL IM ONE (21:30)
[2016-11-11] MEDS ORDERED: DEXAMETHASONE 4 MG/ML SDV (DECADRON) IM ONE (21:30)
[2016-11-11 21:39] VITALS: BP 144/79
== END 2016-11-11 21:53 | disposition home or self-care (01) ==
LOC: EDUNIT# 19:58 → ER 20:00
DX: J11.1 Influenza due to unidentified influenza virus with other respiratory manifestations (principal); E03.9 Hypothyroidism, unspecified; M47.9 Spondylosis, unspecified; K21.9 Gastro-esophageal reflux disease without esophagitis; F32.9 Major depressive disorder, single episode, unspecified; Z87.891 Personal history of nicotine dependence; Z90.710 Acquired absence of both cervix and uterus
CPT/HCPCS: 87804; 99284

== ENCOUNTER 2017-11-16 04:10 | Inpatient (IN) | payer BC, MEDICAID ==
[~2017-11-16] VITALS: Ht 167.6 cm; Wt 135.7 kg
[~2017-11-16 04:10] MED LIST changes: +BENZ200C51 PO; -OXYC-197 PO; +OXYC1TAB87 PO; +PRD20T PO
--- OUTSIDE RECORDS SUMMARY | 2017-11-16 04:17 | XMS REPORT | Continuity of Care Document ---
Author Author [facility] Organization [facility] Address Unknown Phone Unavailable Allergies Active Description Code Type Severity Reaction Onset Reported/Identified Relationship to Patient Clinical Status Yes DEMEROL DEMEROL Mild VOMITING 05/30/2012 Yes hydrocodone [id number] Drug Allergy Mild DIZZINESS, NAUS 06/06/2015 Yes Sulfa (Sulfonamide Antibiotics) [id number] Drug Allergy Mild MOUTH SORES Yes Sulfa (Sulfonamide Antibiotics) [id number] Drug Allergy Severe RASH IN MOUTH 05/17/2016 Yes hydrocodone [id number] Drug Allergy Moderate GI UPSET 05/17/2016 Yes meperidine [id number] Drug Allergy Moderate GI UPSET 05/17/2016 Medications There is no data. Problems Date Dx Coded Attending Type Code [...] DUARTE, SHERI Bangura Ot K92.1 MELENA 06/01/2015 BLEGICA DUARTE, SHERI Bangura Ot Z01.818 ENCOUNTER FOR [...] Ot K64.4 RESIDUAL HEMORRHOIDAL SKIN TAGS 08/17/2015 EMMETT PUJA R MOBILE MARKETING MANAGER Ot G47.33 OBSTRUCTIVE SLEEP APNEA (ADULT) (PEDIATR 11/23/2015 SINGLETON, LEE L MOBILE MARKETING MANAGER Ot R06.02 SHORTNESS OF BREATH 11/23/2015 EMILE SINGLETONI L MOBILE MARKETING MANAGER Ot R07.9 CHEST PAIN, UNSPECIFIED 11/23/2015 SINGLETON, LEE L MOBILE MARKETING MANAGER Ot R10.11 RIGHT UPPER QUADRANT PAIN 11/24/2015 BETH BAIN DO Ot 255.9 ADRENAL DISORDER N0S 11/24/2015 BETH BAIN DO Ot 571.8 CHRONIC LIVER DIS NEC 11/24/[facility] 578.9 GASTROINTEST HEMORR NOS 11/24/2015 [facility] Ot 783.1 ABNORMAL WEIGHT GAIN 11/24/2015 BETH BAIN DO Ot 789.00 ABDOMINAL PAIN, UNSPECIFIED SITE 11/24/2015 [facility] Ot 789.30 ABDOMINAL/PELVIC SWELLING,MASS/LUMP UNSP 11/24/2015 BETH BAIN DO Ot K76.0 FATTY (CHANGE OF) LIVER, NOT ELSEWHERE C 11/24/2015 ARELI LEE L MOBILE MARKETING MANAGER Ot R06.02 SHORTNESS OF BREATH 11/24/2015 ARELI LEE L MOBILE MARKETING MANAGER Ot R07.9 CHEST PAIN, UNSPECIFIED 11/24/2015 ARELI LEE L MOBILE MARKETING MANAGER Ot R10.11 RIGHT UPPER QUADRANT PAIN 11/25/2015 ARELI LEE L MOBILE MARKETING MANAGER Ot K76.0 FATTY (CHANGE OF) LIVER, NOT ELSEWHERE C 11/25/2015 SINGLETON, LEE L MOBILE MARKETING MANAGER Ot R10.11 RIGHT UPPER QUADRANT PAIN 12/07/2015 SINGLETON, LEE L MOBILE MARKETING MANAGER Ot R06.02 SHORTNESS OF BREATH 12/07/2015 SINGLETON LEE L MOBILE MARKETING MANAGER Ot R07.9 CHEST PAIN, UNSPECIFIED 12/07/2015 SINGLETON, LEE L MOBILE MARKETING MANAGER Ot R10.11 RIGHT UPPER QUADRANT PAIN 12/07/2015 ARELI, LEE L MOBILE MARKETING MANAGER Ot K76.0 FATTY (CHANGE OF) LIVER, NOT ELSEWHERE C 12/07/2015 SINGLETONEMILEHilaria Montoya MOBILE MARKETING MANAGER Ot R10.11 RIGHT UPPER QUADRANT PAIN 05/01/2016 MIRTHAMARTIN POPE L MOBILE MARKETING MANAGER Ot R10.11 RIGHT UPPER QUADRANT PAIN 05/06/2016 MIRTHAMARTIN POPE L MOBILE MARKETING MANAGER Ot R10.11 RIGHT UPPER QUADRANT PAIN 05/16/2016 MIRTHAJESS OPPEIN L MOBILE MARKETING MANAGER Ot R10.11 RIGHT UPPER QUADRANT PAIN 05/17/2016 ALEJANDRINA PERRIN MD Ot K82.8 OTHER SPECIFIED DISEASES OF GALLBLADDER 05/17/2016 ALEJANDRINA PERRIN MD Ot Z01.818 ENCOUNTER FOR OTHER PREPROCEDURAL EXAMIN 05/17/2016 ALEJANDRINA PERRIN MD Ot Z11.2 ENCOUNTER FOR SCREENING FOR OTHER BACTER 05/18/2016 ALEJANDRINA PERRIN MD, Ot K82.8 OTHER SPECIFIED DISEASES OF GALLBLADDER 05/18/2016 ALEJANDRINA PERRIN MD Ot Z01.818 ENCOUNTER FOR OTHER PREPROCEDURAL EXAMIN 05/18/2016 ALEJANDRINA PERRIN MD Ot Z11.2 ENCOUNTER FOR SCREENING FOR OTHER BACTER 05/24/2016 BETH BAIN DO Ot 255.9 ADRENAL DISORDER N0S 05/24/2016 EBTH BAIN DO Ot 571.8 CHRONIC LIVER DIS NEC 05/24/2016 BETH BAIN DO Ot 578.9 GASTROINTEST HEMORR NOS 05/24/2016 BETH BAIN DO Ot 783.1 ABNORMAL WEIGHT GAIN 05/24/2016 BETH BAIN DO Ot 789.00 ABDOMINAL PAIN, UNSPECIFIED SITE 05/24/2016 BETH BAIN DO Ot 789.30 ABDOMINAL/PELVIC SWELLING,MASS/LUMP UNSP 05/24/2016 BETH BAIN DO Ot K76.0 FATTY (CHANGE OF) LIVER, NOT ELSEWHERE C 05/24/2016 LEE SINGLETON MOBILE MARKETING MANAGER Ot R06.02 SHORTNESS OF BREATH 05/24/2016 LEE SINGLETON MOBILE MARKETING MANAGER Ot R07.9 CHEST PAIN, UNSPECIFIED 05/24/2016 ARELI LEE L MOBILE MARKETING MANAGER Ot R10.11 RIGHT UPPER QUADRANT PAIN 05/24/2016 ARELI LEE L MOBILE MARKETING MANAGER Ot K76.0 FATTY (CHANGE OF) LIVER, NOT ELSEWHERE C 05/24/2016 LEE SINGLETON L MOBILE MARKETING MANAGER Ot R10.11 RIGHT UPPER QUADRANT PAIN 05/24/2016 MARTIN SHANNON L MOBILE MARKETING MANAGER Ot R10.11 RIGHT UPPER QUADRANT PAIN 05/24/2016 ALEJANDRINA PERRIN MD Ot E11.9 TYPE 2 DIABETES MELLITUS WITHOUT COMPLIC 05/24/2016 ALEJANDRINA PERRIN MD Ot K81.1 CHRONIC CHOLECYSTITIS 05/24/2016 ALEJANDRINA PERRIN MD Ot Z79.84 [facility] (CURRENT) USE OF ORAL HYPOGLYC 05/30/2016 ALEJANDRINA PERRIN MD Ot E11.9 TYPE 2 DIABETES MELLITUS WITHOUT COMPLIC 05/30/2016 ALEJANDRINA PERRIN MD Ot K81.1 CHRONIC CHOLECYSTITIS 05/30/2016 ALEJANDRINA PERRIN MD Ot 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 11/11/2016 VIVEK FUNEZ Ot E03.9 HYPOTHYROIDISM, UNSPECIFIED 11/11/2016 VIVEK FUNEZ Ot F32.9 MAJOR DEPRESSIVE DISORDER, SINGLE EPISOD 11/11/2016 VIVEK FUNEZ Ot J11.1 FLU DUE TO UNIDENTIFIED INFLUENZA VIRUS 11/11/2016 VIVEK FUNEZ Ot K21.9 GASTRO-ESOPHAGEAL REFLUX DISEASE WITHOUT 11/11/2016 VIVEK FUNEZ Ot M47.9 SPONDYLOSIS, UNSPECIFIED 11/11/2016 VIVEK FUNEZ Ot R05 COUGH 11/11/2016 VIVEK FUNEZ Ot Z87.891 PERSONAL HISTORY OF NICOTINE DEPENDENCE 11/11/2016 VIVEK FUNEZ Ot Z90.710 ACQUIRED ABSENCE OF BOTH CERVIX AND UTER 11/13/2016 VIVEK FUNEZ Ot E03.9 HYPOTHYROIDISM, UNSPECIFIED 11/13/2016 VIVEK FUNEZ Ot F32.9 MAJOR DEPRESSIVE DISORDER, SINGLE EPISOD 11/13/2016 VIVEK FUNEZ Ot J11.1 FLU DUE TO UNIDENTIFIED INFLUENZA VIRUS 11/13/2016 VIVEK FUNEZ Ot K21.9 GASTRO-ESOPHAGEAL REFLUX DISEASE WITHOUT 11/13/2016 VIVEK FUNEZ Ot M47.9 SPONDYLOSIS, UNSPECIFIED 11/13/2016 VIVEK FUNEZ Ot R05 COUGH 11/13/2016 VIVEK FUNEZ Ot Z87.891 PERSONAL HISTORY OF NICOTINE DEPENDENCE 11/13/2016 VIVEK FUNEZ Ot Z90.710 ACQUIRED ABSENCE OF BOTH CERVIX AND UTER Procedures There is no data. Results Test Result Range Complete blood count (CBC) with automated white blood cell (WBC) differential - 11/21/15 18:15 Blood leukocytes automated count (number/volume) 7.5 10*3/uL 4.3-11.0 Blood erythrocytes automated count (number/volume) 3.88 10*6/uL 4.35-5.85 Venous blood hemoglobin measurement (mass/volume) 12.8 [...] Automated blood platelet mean volume measurement 11.0 [foz_us] 7.4-10.4 Automated blood neutrophils/100 leukocytes 42 % [...] Serum or plasma sodium measurement (moles/volume) 140 mmol/L 135-145 Serum or plasma potassium measurement (moles/volume) 4.0 mmol/L 3.6-5.0 Serum or plasma chloride measurement (moles/volume) 103 mmol/L 98-107 Carbon dioxide 22 mmol/L 21-32 Serum or plasma anion gap determination (moles/volume) 15 mmol/L 5-14 Serum or plasma urea nitrogen measurement (mass/volume) 10 mg/dL 7-18 Serum or plasma creatinine measurement (mass/volume) 0.76 mg/dL 0.60-1.30 Serum or plasma urea nitrogen/creatinine mass [...] or plasma troponin i.cardiac measurement (mass/volume) < ng/ mL <0.30 Myoglobin, serum - 11/21/15 18:15 Myoglobin, serum 38.3 ng/mL 10.0-92.0 Serum or plasma amylase measurement (enzymatic activity/volume) - 11/21/15 18: 15 Serum or plasma amylase measurement (enzymatic activity/volume) 30 U /L 25-125 Lipase - 11/21/15 18:15 Lipase 16 U/L 8-78 Complete blood count (CBC) with automated white blood cell (WBC) differential - 05/17/16 09:40 Blood leukocytes automated count (number/volume) 5.8 10*3/uL 4.3-11.0 Blood erythrocytes automated count (number/volume) 4.07 10*6/uL 4.35-5.85 Venous blood hemoglobin measurement (mass/volume) 13.3 [...] Automated blood platelet mean volume measurement 11.4 [foz_us] 7.4-10.4 Automated blood neutrophils/100 leukocytes 44 % [...] measurement by glucometer (mass/volume) 140 mg/dL 70-110 Influenza virus A and B antigen detection - 11/11/16 20:20 FLU RESULT NEGATIVE FOR INFLUENZA A AND B ANTIGENS BY IA NRG Encounters ACCT No. Visit Date/Time Discharge Status Pt. Type Provider Facility Loc./Unit Complaint [id number] 11/11/2016 20:00:00 11/11/2016 21:53:00 DIS Emergency VIVEK FUNEZ [facility] ER FLU SYMPTOMS [id number] 05/24/2016 07:10:00 05/24/2016 13:51:00 DIS Outpatient ALEJANDRINA PERRIN MD [facility] SDC BILIARY DYSKINESIA [id number] 05/17/2016 09:07:00 05/17/2016 10:05:00 DIS Outpatient ALEJANDRINA PERRIN MD [facility] PREOP BILIARY DYSKINESIA [id number] 04/30/2016 10:32:00 04/30/2016 23:59:59 CLS Outpatient MIRTHA MARTIN L MOBILE MARKETING MANAGER [facility] CARD RUQ PAIN [id number] 11/24/2015 07:24:00 11/24/2015 23:59:59 CLS Outpatient LEE SINGLETON Jan MOBILE MARKETING MANAGER [facility] RAD RUQ PAIN [id number] 11/21/2015 18:01:00 11/21/2015 23:59:59 CLS Outpatient LEE SINGLETON MOBILE MARKETING MANAGER [facility] LAB RUQ PAIN,SOA,CHEST PAIN [id number] 08/16/2015 21:15:00 08/17/2015 06:40:00 DIS Outpatient PUJA CHRISTINE MOBILE MARKETING MANAGER [facility] SLEEP SNORING,OBESITY, EXCESSIVE DAYTIME SLEEPINESS [id number] 06/06/2015 09:21:00 06/06/2015 13:25:00 DIS Outpatient SHERI LINDO MD [facility] BLOOD IN STOOL [id number] 06/01/2015 05:53:00 06/01/2015 14:17:00 DIS Outpatient SHERI LINDO MD [facility] PREOP BLOOD IN STOOL [id number] 05/24/2015 07:27:00 05/24/2015 23:59:59 CLS Outpatient BETH BAIN DO [facility] RAD RUQ PAIN [id number] 06/22/2013 07:26:00 06/22/2013 23:59:59 CLS Outpatient BETH BAIN DO [facility] RAD ABD PAIN,GAINING WEIGHT [id number] 01/14/2013 03:45:00 01/16/2013 14:00:00 DIS Inpatient
[2017-11-16] MEDS ORDERED: ONDANSETRON 4 MG (ZOFRAN) ORAL DISSOLVE TAB SL STA (04:37)
[2017-11-16] MEDS ORDERED: NS IV 1000 ML 1,000 ML IV ONE (04:37)
[2017-11-16 04:51] LABS: BASOPHILS % (AUTO) 0 % (0-10); EOSINOPHILS # (AUTO) 0.1 10^3/uL (0.0-0.3); EOSINOPHILS % (AUTO) 2 % (0-10); HEMATOCRIT 42 % (35-52); HEMOGLOBIN 14.1 G/DL (11.5-16.0); LYMPHOCYTES # (AUTO) 2.7 X 10^3 (1.0-4.0); LYMPHOCYTES % (AUTO) 41 % (12-44); MEAN CORPUSCULAR HEMOGLOBIN 33 PG (25-34); MEAN CORPUSCULAR HGB CONC 34 G/DL (32-36); MEAN CORPUSCULAR VOLUME 96 FL (80-99); MEAN PLATELET VOLUME 11.4 FL (7.4-10.4); MONOCYTES # (AUTO) 0.6 X 10^3 (0.0-1.0); MONOCYTES % (AUTO) 9 % (0-12); NEUTROPHILS # (AUTO) 3.1 X 10^3 (1.8-7.8); NEUTROPHILS % (AUTO) 48 % (42-75); PLATELET COUNT 181 10^3/uL (130-400); RED BLOOD COUNT 4.33 10^6/uL (4.35-5.85); RED CELL DISTRIBUTION WIDTH 11.8 % (10.0-14.5); WHITE BLOOD COUNT 6.5 10^3/uL (4.3-11.0)
[2017-11-16 04:52] LABS: BILIRUBIN,URINE NEGATIVE (NEGATIVE); CLARITY,URINE VERY CLOUDY; COLOR,URINE AMBER; GLUCOSE, URINE (UA) 2+ (NEGATIVE); KETONES,URINE NEGATIVE (NEGATIVE); LEUKOCYTE ESTERASE ,URINE 3+ (NEGATIVE); NITRITE,URINE NEGATIVE (NEGATIVE); PH,URINE 5 (5-9); PROTEIN,URINE 1+ (NEGATIVE); UROBILINOGEN,URINE NORMAL (NORMAL)
[2017-11-16 05:00] LABS: BACTERIA,URINE FEW /HPF; RBC,URINE RARE /HPF; WBC,URINE 25-50 /HPF
[2017-11-16 05:11] LABS: ALANINE AMINOTRANSFERASE 30 U/L (0-55); ALKALINE PHOSPHATASE 94 U/L (40-136); AMYLASE 30 U/L (25-125); BILIRUBIN,TOTAL 0.4 MG/DL (0.1-1.0); BUN/CREATININE RATIO 12; CALCIUM 9.6 MG/DL (8.5-10.1); CARBON DIOXIDE 22 MMOL/L (21-32); CHLORIDE 109 MMOL/L (98-107); CREATININE SERUM 0.74 MG/DL (0.60-1.30); GFR ESTIMATED > 60; GLUCOSE 192 MG/DL (70-105); LIPASE 15 U/L (8-78); SODIUM 142 MMOL/L (135-145); TOTAL PROTEIN 7.1 GM/DL (6.4-8.2)
[2017-11-16] MEDS ORDERED: NS 250 ML (IVPB) BAG IV ONE (06:00)
[2017-11-16] MEDS ORDERED: IOHEXOL 350 MG/ML 100 ML (OMNIPAQUE 350) VIAL IV ONE (06:00)
[2017-11-16] MEDS ORDERED: fentaNYL INJECTION 100 MCG/2 ML AMP IVP STA ×2 (06:09→07:26)
--- NOTE | 2017-11-16 07:14 | Diagnostic Imaging Report ---
INDICATION: Abdominal pain PA chest, supine and upright abdominal images were obtained. The lungs are clear. There is no intraperitoneal free air. Gallbladder is surgically absent. There is gaseous distention of the small bowel. Colon is decompressed. IMPRESSION: Small bowel obstruction CRITICAL FINDING Report given to ER nurse (Christopher) at 07:14 a.m. 11/16/2017/joshua Dictated by: Dictated on workstation # [id number]
--- NOTE | 2017-11-16 07:19 | Diagnostic Imaging Report ---
PROCEDURE: CT abdomen and pelvis with contrast. TECHNIQUE: Multiple contiguous axial images were obtained through the abdomen and pelvis after administration of intravenous contrast. INDICATION: Abdominal pain, recurrent urinary tract infection. FINDINGS: The lung bases are clear. There is a tiny amount of free fluid in the superior aspect of the right paracolic gutter. There is no intraperitoneal free air. The liver appears enlarged. The gallbladder is surgically absent. The spleen is not enlarged. There is a moderate amount of food residue in the stomach. The pancreas appears normal. Portal vein is patent. Common duct is not dilated. Kidneys and adrenals appear normal. Proximal small bowel loops are distended. The distal small bowel is less distended. The appendix is normal. There is a moderate amount of stool in the colon. There is a trace amount of free fluid in the cul-de-sac. Uterus is surgically absent. Urinary bladder appears normal. IMPRESSION: There is a tiny amount of free fluid. There is dilatation of the proximal small bowel, suspicious for a small bowel obstruction. CRITICAL FINDING Report given to ER nurse (Christopher) at 07:14 a.m. 11/16/2017/joshua Dictated by: Dictated on workstation # [id number]
[2017-11-16] MEDS ORDERED: HURRICAINE EXT TUBE (BENZOCAINE) ONE ×2 (07:34→08:27)
--- NOTE | 2017-11-16 07:44 | ED Abdominal Pain ---
General Chief Complaint: Abdominal/GI Problems Stated Complaint: SMALL BOWEL OBSTRUCTION Nursing Triage Note: ABDOMINAL PAIN SINCE YESTERDAY AT 1600. HAS BEEN TREATED FOR 2 WEEKS FOR UTI. PAIN BECAME UNBEARABLE AND AWOKE PT THIS MORNING. Sepsis Screen: No Definite Risk Source of Information: Patient Exam Limitations: No Limitations History of Present Illness Date Seen by Provider: Nov 16, 2017 Time Seen by Provider: 04:27 Initial Comments PT ARRIVES VIA POV FROM HOME C/O NAUSEA FOR A COUPLE OF DAYS, NO VOMITING, BUT HAVING "NASTY BELCHES" --" LIKE SULFUR" BEGAN TO HAVE SEVERE "EXCRUCIATING" UPPER ABDOMINAL PAIN YESTERDAY AROUND 1600, ALONG WITH BLOATING PAIN IS CONSTANT, IS WORST IN EPIGASTRIC AREA AND RADIATES ACROSS ENTIRE UPPER ABDOMEN NO DIARRHEA, BUT HAS BEEN CONSTIPATED FOR A COUPLE OF DAYS--HAD 2 SMALL BM'S YESTERDAY. NO BLACK/BLOODY/TARRY STOOLS NO URINARY SYMPTOMS NO FEVER HAS HAD SIMILAR WITH SMALL BOWEL OBSTRUCTION / "ILEUS" --PER PT, IN THE PAST. NO SURGERY REQUIRED. PT WAS DX WITH UTI AROUND Oct--TREATED FOR 10 DAYS WITH AMOXIL. THEN RECHECKED 2 WEEKS LATER AND STILL HAD UTI, AND GIVEN RX FOR CIPRO, WHICH SHE HAS FINISHED. PCP: DR. BAIN Allergies and Home Medications Allergies Coded Allergies: Sulfa (Sulfonamide Antibiotics) (Verified Allergy, Severe, RASH IN MOUTH, 05/17/16) hydrocodone (Verified Allergy, Intermediate, GI UPSET, 05/17/16) meperidine (Verified Allergy, Intermediate, GI UPSET, 05/17/16) Home Medications Acetaminophen 500 Mg Tab, 1,000 MG PO BID, (Reported) TAKES 2 (500MG) TABLETS TWICE DAILY Benzonatate 200 Mg Capsule, 200 MG PO Q8H PRN for COUGH Prescribed by: VIVEK PRATHER on 11/11/162115 Lactobacillus Acidophilus 1 Each Capsule, 1 EACH PO DAILY, (Reported) Levothyroxine Sodium 75 Mcg Tablet, 75 MCG PO DAILY, (Reported) Metformin HCl 500 Mg [id number], 500 MG PO BID, (Reported) Oxycodone HCl/Acetaminophen 1 Each Tablet, 1-2 EACH PO Q4H Prescribed by: ALEJANDRINA PERRIN on 05/24/16 1002 Pantoprazole Sodium 40 Mg Tablet., 40 MG PO DAILY, (Reported) Prednisone 20 Mg Tab, 40 MG PO DAILY Prescribed by: VIVEK PRATHER on 11/11/162115 Tramadol HCl 50 Mg Tablet, 50 MG PO PRN, (Reported) Trazodone Hcl 50 Mg Tablet, 50 MG PO HS, (Reported) Patient Home Medication List Home Medication List Reviewed: Yes Review of Systems Review of Systems Constitutional: no symptoms reported; No fever EENTM: No Symptoms Reported Respiratory: No Symptoms Reported Cardiovascular: No Symptoms Reported Gastrointestinal: See HPI, Abdominal Pain, Constipated, Nausea, Poor Appetite; Denies Vomiting Genitourinary: No Symptoms Reported, See HPI Musculoskeletal: no symptoms reported; No back pain Skin: no symptoms reported Psychiatric/Neurological: No Symptoms Reported Endocrine: No Symptoms Reported Past Kxkssni-Cwvtez-Xnmful Hx Patient Social History Alcohol Use: Occasionally Uses Alcohol Beverage of Choice: Other Recreational Drug Use: No Smoking Status: Former Smoker (1 PPD X 40 YEARS, QUIT 2012) Type Used: Cigarettes Recent Foreign Travel: No Contact w/Someone Who Travel: No Recent Infectious Disease Expo: No Recent Hopitalizations: No Physical Abuse: No Sexual Abuse: No Immunizations Up To Date Tetanus Booster (TDap): Unknown Date of Influenza Vaccine: Nov 10, 2015 Seasonal Allergies Seasonal Allergies: No Past Medical History Surgeries: Yes (ORAL SURGERY FOR JAW FX; L KNEE SCOPE; HYST/OVARIES INTACT; COLONOSCOPY) Gallbladder, Hysterectomy, Orthopedic, Tonsillectomy, 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 Respiratory: Yes Sleep Apnea Currently Using CPAP: No Cardiac: Yes (TACHYCARDIA R/T THYROID ) High Cholesterol, Palpitations Neurological: No Reproductive Disorders: No 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, Menopausal Sexually Transmitted Disease: No HIV/AIDS: No Genitourinary: Yes Bladder Infection, UTI-Chronic Gastrointestinal: Yes (HX ILEUS/SBO--NO SURGERY) Gastroesophageal Reflux, Obstructive Bowel, Chronic Constipation, Diverticulosis , Irritable Bowel Musculoskeletal: Yes (muscle pain all over) Degenerate Disk Disease, Arthritis, Fibromyalgia, Chronic Back Pain Endocrine: Yes (SELF DC'D METFORMIN SOME TIME AGO, STARTED ON JANUVIA AND AMARYL 10/2017--HGB AIC 11) Hypothyroidsim, Diabetes, Non-Insulin dep HEENT: No Loss of Vision: Bilateral Hearing Impairment: Denies Cancer: No Psychosocial: Yes Depression Integumentary: Yes (RASH/ACNE UNDER ARMS AND BREAST) Blood Disorders: No Adverse Reaction/Blood Tranf: No Family Medical History Alcoholism 09 BROTHER, Onset:Unknown Cancer 03 FATHER, Onset:Unknown 09 BROTHER, Onset:Unknown Cataract 03 MOTHER, Onset:Unknown Congestive heart failure 03 MOTHER, Onset:Unknown Family history: Diabetes mellitus 03 FATHER, Onset:Unknown 03 MOTHER, Onset:Unknown Family history: Thyroid disorder 03 MOTHER, Onset:Unknown Heart disease 03 FATHER, Onset:Unknown History of drug abuse 09 BROTHER, Onset:Unknown No Pertinent Family Hx Physical Exam Vital Signs Vital Signs - First Documented 11/16/17 04:23 Temp 97.0 Pulse 84 Resp 12 B/P (MAP) 127/83 (98) Pulse Ox 96 Capillary Refill : Less Than 3 Seconds Height/Weight/BMI Height: 5'7.00" Weight: 291lbs. 1.0oz. 131.367552ei; 48.6 BMI Method:Stated General Appearance: no apparent distress, obese, other (PT AMBULATES WITHOUT DIFFICULTY. SITTING UPRIGHT WITHOUT DIFFICULTY. 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, no motor/sensory deficits, alert, normal mood/affect, oriented x 3 Skin: normal color, warm/dry Progress/Results/Core Measures Results/Orders Lab Results Laboratory Tests Test 11/16/17 04:31 11/16/17 04:44 Range/Units Urine Color CARTER H Urine Clarity VERY CLOUDY H Urine pH 5 5-9 Urine Specific [place] 1.025 H 1.016-1.022 Urine Protein 1+ H NEGATIVE Urine Glucose (UA) 2+ H NEGATIVE Urine Ketones NEGATIVE NEGATIVE Urine Nitrite NEGATIVE NEGATIVE Urine Bilirubin NEGATIVE NEGATIVE Urine Urobilinogen NORMAL NORMAL MG/DL Urine Leukocyte Esterase 3+ H NEGATIVE Urine RBC (Auto) 1+ H NEGATIVE Urine RBC RARE /HPF Urine WBC 25-50 H /HPF Urine Squamous Epithelial Cells 10-25 H /HPF Urine Crystals NONE /LPF Urine Bacteria FEW H /HPF Urine Casts NONE /LPF Urine Mucus NEGATIVE /LPF Urine Culture Indicated YES White Blood Count 6.5 4.3-11.0 10^3/uL Red Blood Count 4.33 L 4.35-5.85 10^6/uL Hemoglobin 14.1 11.5-16.0 G/DL Hematocrit 42 35-52 % Mean Corpuscular Volume 96 80-99 FL Mean Corpuscular Hemoglobin 33 25-34 PG Mean Corpuscular Hemoglobin Concent 34 32-36 G/DL Red Cell Distribution Width 11.8 10.0-14.5 % Platelet Count 181 130-400 10^3/uL Mean Platelet Volume 11.4 H 7.4-10.4 FL Neutrophils (%) (Auto) 48 42-75 % Lymphocytes (%) (Auto) 41 12-44 % Monocytes (%) (Auto) 9 0-12 % Eosinophils (%) (Auto) 2 0-10 % Basophils (%) (Auto) 0 0-10 % Neutrophils # (Auto) 3.1 1.8-7.8 X 10^3 Lymphocytes # (Auto) 2.7 1.0-4.0 X 10^3 Monocytes # (Auto) 0.6 0.0-1.0 X 10^3 Eosinophils # (Auto) 0.1 0.0-0.3 10^3/uL Basophils # (Auto) 0.0 0.0-0.1 10^3/uL Sodium Level 142 135-145 MMOL/L Potassium Level 4.0 3.6-5.0 MMOL/L Chloride Level 109 H 98-107 MMOL/L Carbon Dioxide Level 22 21-32 MMOL/L Anion Gap 11 5-14 MMOL/L Blood Urea Nitrogen 9 7-18 MG/DL Creatinine 0.74 0.60-1.30 MG/DL Estimat Glomerular Filtration Rate > 60 BUN/Creatinine Ratio 12 Glucose Level 192 H 70-105 MG/DL Calcium Level 9.6 8.5-10.1 MG/DL Corrected Calcium 9.6 8.5-10.1 MG/DL Total Bilirubin 0.4 0.1-1.0 MG/DL Aspartate Amino Transf (AST/SGOT) 27 5-34 U/L Alanine Aminotransferase (ALT/SGPT) 30 0-55 U/L Alkaline Phosphatase 94 40-136 U/L Total Protein 7.1 6.4-8.2 GM/DL Albumin 4.0 3.2-4.5 GM/DL Amylase Level 30 25-125 U/L Lipase 15 8-78 U/L My Orders Orders - ADDIS SIM DO Saline Lock/Iv-Start (11/16/17 04:29) Amylase (11/16/17 04:29) Cbc With Automated Diff (11/16/17 04:29) Comprehensive Metabolic Panel (11/16/17 04:29) Lipase (11/16/17 04:29) Ua Culture If Indicated (11/16/17 04:29) Saline Lock/Iv-Start (11/16/17 04:37) Ns Iv 1000 Ml (Sodium Chloride 0.9%) (11/16/17 04:37) Ondansetron Oral Dissolve Tab (Zofran (11/16/17 04:37) Urine Culture (11/16/17 04:31) Ct Abdomen/Pelvis W (11/16/17 05:15) Acute Abd Series (11/16/17 05:15) Iohexol Injection (Omnipaque 350 Mg/Ml 1 (11/16/17 06:00) Ns (Ivpb) (Sodium Chloride 0.9%) (11/16/17 06:00) Fentanyl Injection (Sublimaze Injection (11/16/17 06:09) Ng Tube Insert & Assessment (11/16/17 07:15) Fentanyl Injection (Sublimaze Injection (11/16/17 07:26) Medications Given in ED Current Medications Medications Dose Ordered Sig/Donell Route Start Time Stop Time Status Last Admin Dose Admin Iohexol 100 ml ONCE ONCE IV 11/16/17 06:00 11/16/17 06:01 DC 11/16/17 05:57 100 ML Sodium Chloride 250 ml ONCE ONCE IV 11/16/17 06:00 11/16/17 06:01 DC 11/16/17 05:57 80 ML Sodium Chloride 1,000 ml @ 0 mls/hr Q0M ONCE IV 11/16/17 04:37 11/16/17 04:40 DC 11/16/17 04:50 1,000 MLS/HR Vital Signs/I&O 11/16/17 04:23 Temp 97.0 Pulse 84 Resp 12 B/P (MAP) 127/83 (98) Pulse Ox 96 Blood Pressure Mean: 98 Progress Progress Note : Progress Note PAIN AND NAUSEA EASED WITH MEDICATIONS Diagnostic Imaging Comments ACUTE ABDOMEN XRAYS--SBO, PER RADIOLOGIST REPORT AT 0720 CT ABDOMEN/PELVIS--SBO, PER RADIOLOGIST REPORT @ 0720 Reviewed: Reviewed by Me Departure Communication (Admissions) 0720--SPOKE WITH 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 Referrals: BETH BAIN DO (PCP/Family) Primary Care Physician ADDIS SIM DO Nov 16, 2017 07:44
--- NOTE | 2017-11-16 08:39 | Diagnostic Imaging Report ---
EXAMINATION: Chest radiograph, portable AP view. DATE: November 16, 2017 at 0819 hours. INDICATION: 56-year-old female, nasogastric tube placement. COMPARISON: January 15, 2013. FINDINGS: The nasogastric tube tip overlies the stomach. Stable overall appearance of the cardiomediastinal silhouette. There are technical limitations of the exam relating to patient body habitus and exposure. There is no identified pneumothorax. There is no definite pleural effusion. There is no identified definite focal airspace consolidation. IMPRESSION: 1. Nasogastric tube overlying the stomach. 2. Technical limitations of the exam. 3. No identified definite acute cardiopulmonary abnormality. Dictated by: Dictated on workstation # [id number]
[2017-11-16] MEDS: PANTOPRAZOLE 40 MG (PROTONIX) VIAL IV SCH (09:33)
[2017-11-16] MEDS: D5 1/2 NS W/KCL 20 MEQ/L 1,000 ML IV SCH ×4 (09:33→23:47)
[2017-11-16] MEDS: cefTRIAXone 1 GM/NS 50 ML IVPB IV SCH ×2 (09:33)
[2017-11-16] MEDS ORDERED: FLU QUADRIvalent (5+ YOA) 2018-2019 (AFLURIA) 0.5 ML IM ONE (10:30)
[2017-11-16 12:00] VITALS: BP 106/63
--- NOTE | 2017-11-16 12:19 | Consultation ---
History of Present Illness History of Present Illness Patient Consulted On(del/time) 11/16/17 12:12 Time Seen by Provider: 10:31 History of Present Illness Surgery asked to consult regarding possible PSBO. HPI per ED: PT ARRIVES VIA POV FROM HOME C/O NAUSEA FOR A COUPLE OF DAYS, NO VOMITING, BUT HAVING "NASTY BELCHES" --" LIKE SULFUR" BEGAN TO HAVE SEVERE "EXCRUCIATING" UPPER ABDOMINAL PAIN YESTERDAY AROUND 1600, ALONG WITH BLOATING PAIN IS CONSTANT, IS WORST IN EPIGASTRIC AREA AND RADIATES ACROSS ENTIRE UPPER ABDOMEN NO DIARRHEA, BUT HAS BEEN CONSTIPATED FOR A COUPLE OF DAYS--HAD 2 SMALL BM'S YESTERDAY. NO BLACK/BLOODY/TARRY STOOLS NO URINARY SYMPTOMS NO FEVER HAS HAD SIMILAR WITH SMALL BOWEL OBSTRUCTION / "ILEUS" --PER PT, IN THE PAST. NO SURGERY REQUIRED. PT WAS DX WITH UTI AROUND FIRST Oct--TREATED FOR 10 DAYS WITH AMOXIL. THEN RECHECKED 2 WEEKS LATER AND STILL HAD UTI, AND GIVEN RX FOR CIPRO, WHICH SHE HAS FINISHED. When I spoke with pt this am, she had had some vomiting after getting to the floor "and my tube came out". She states she only has nausea and abdominal pain when she moves. Rates the pain as a 4 out of 10 on a 1-10 scale with movement. She denies dysuria or hematuria. Pt denies flatus or BM today. Allergies and Home Medications Allergies Coded Allergies: Sulfa (Sulfonamide Antibiotics) (Verified Allergy, Severe, RASH IN MOUTH, 05/17/16) hydrocodone (Verified Allergy, Intermediate, GI UPSET, 05/17/16) meperidine (Verified Allergy, Intermediate, GI UPSET, 05/17/16) Home Medications Acetaminophen 500 Mg Tab, 1,000 MG PO BID, (Reported) TAKES 2 (500MG) TABLETS TWICE DAILY Benzonatate 200 Mg Capsule, 200 MG PO Q8H PRN for COUGH Prescribed by: VIVEK PRATHER on 11/11/162115 Lactobacillus Acidophilus 1 Each Capsule, 1 EACH PO DAILY, (Reported) Levothyroxine Sodium 75 Mcg Tablet, 75 MCG PO DAILY, (Reported) Metformin HCl 500 Mg [id number], 500 MG PO BID, (Reported) Oxycodone HCl/Acetaminophen 1 Each Tablet, 1-2 EACH PO Q4H Prescribed by: ALEJANDRINA PERRIN on 05/24/16 1002 Pantoprazole Sodium 40 Mg Tablet.dr, 40 MG PO DAILY, (Reported) Prednisone 20 Mg Tab, 40 MG PO DAILY Prescribed by: VIVEK PRATHER on 11/11/16 2116 Tramadol HCl 50 Mg Tablet, 50 MG PO PRN, (Reported) Trazodone Hcl 50 Mg Tablet, 50 MG PO HS, (Reported) Patient Home Medication List Home Medication List Reviewed: Yes Past Njkfbhe-Rnqwsf-Gbdtnq Hx Patient Social History Alcohol Use: Occasionally Uses Number of Drinks Today: II Recreational Drug Use: No Smoking Status: Former Smoker Former Smoker, Quit: Nov 16, 2012 Type Used: Cigarettes Recent Foreign Travel: No Contact w/Someone Who Travel: No Recent Infectious Disease Expo: No Recent Hopitalizations: No Physical Abuse Screen: No Sexual Abuse: No Immunizations Up To Date Tetanus Booster (TDap): Unknown Date of Influenza Vaccine: Nov 10, 2015 Seasonal Allergies Seasonal Allergies: No Surgeries History of Surgeries: Yes (ORAL SURGERY FOR JAW FX; L KNEE SCOPE; HYST/ OVARIES INTACT; COLONOSCOPY) Surgeries: Gallbladder, Hysterectomy, Orthopedic, Tonsillectomy, 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 Respiratory History of Respiratory Disorde: Yes Respiratory Disorders: Sleep Apnea Cardiovascular History of Cardiac Disorders: Yes (TACHYCARDIA) Cardiac Disorders: High Cholesterol, Palpitations Neurological History of Neurological Disord: No Reproductive System Hx Reproductive Disorders: No Sexually Transmitted Disease: No HIV/AIDS: No 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, 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 Genitourinary History of Genitourinary Disor: Yes Genitourinary Disorders: Bladder Infection, UTI-Chronic Gastrointestinal History of Gastrointestinal Di: Yes (HX ILEUS/SBO--NO SURGERY) Gastrointestinal Disorders: Gastroesophageal Reflux, Chronic Constipation, Diverticulosis Musculoskeletal History of Musculoskeletal Dis: Yes (muscle pain all over) Musculoskeletal Disorders: Degenerate Disk Disease, Arthritis, Fibromyalgia, Chronic Back Pain Endocrine History of Endocrine Disorders: Yes Endocrine Disorders: Hypothyroidsim, Diabetes, Non-Insulin dep HEENT History of HEENT Disorders: No Loss of Vision: Bilateral Hearing Impairment: Denies Cancer History of Cancer: No Psychosocial History of Psychiatric Problem: Yes Behavioral Health Disorders: Depression Integumentary History of Skin or Integumenta: Yes (RASH/ACNE UNDER ARMS AND BREAST) Blood Transfusions History of Blood Disorders: No Adverse Reaction to a Blood Tr: No Family Medical History Significant Family History: Cancer, CAD Over 55 Years Old, Diabetes Family Medial History: Alcoholism 09 BROTHER, Onset:Unknown Cancer 03 FATHER, Onset:Unknown 09 BROTHER, Onset:Unknown Cataract 03 MOTHER, Onset:Unknown Congestive heart failure 03 MOTHER, Onset:Unknown Family history: Diabetes mellitus 03 FATHER, Onset:Unknown 03 MOTHER, Onset:Unknown Family history: Thyroid disorder 03 MOTHER, Onset:Unknown Heart disease 03 FATHER, Onset:Unknown History of drug abuse 09 BROTHER, Onset:Unknown Review of Systems-General Constitutional: chills, diaphoresis, weakness EENTM: No blurred vision, No mouth pain, No mouth swelling, No epistaxis Respiratory: No cough, No dyspnea on exertion Cardiovascular: No chest pain, No palpitations Gastrointestinal: abdominal pain, nausea, vomiting Genitourinary: No dysuria, No frequency, No hematuria Musculoskeletal: joint pain, joint swelling, muscle pain, muscle stiffness Skin: No change in color, No change in hair/nails Psychiatric/Neurological: Depressed; Denies Seizure, Denies Tremors Other pt denies any abnormal bruising or bleeding. Physical Exam-General Problems Physical Exam Vital Signs Vital Signs - First Documented 11/16/17 11/16/17 04:23 08:35 Temp 97.0 Pulse 84 Resp 12 B/P (MAP) 127/83 (98) Pulse Ox 96 O2 Delivery Room Air Capillary Refill : Less Than 3 Seconds General Appearance: WD/WN, mild distress Eyes: Bilateral Eye PERRL, Bilateral Eye EOMI HEENT: pharynx normal; No scleral icterus (R), No scleral icterus (L) Neck: non-tender, supple, normal inspection Respiratory: chest non-tender, lungs clear, normal breath sounds, no respiratory distress, no accessory muscle use Cardiovascular: regular rate, rhythm, no edema, no murmur Gastrointestinal: soft, no organomegaly, abnormal bowel sounds; No distended, No guarding, No rebound; tenderness (mostly RUQ and midepigastric) Extremities: no pedal edema, no calf tenderness, normal capillary refill 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, no motor/sensory deficits, alert, normal mood/affect, oriented x 3 Skin: normal color, warm/dry Lymphatic: no adenopathy (neck, axilla or groin) Data Review Labs Laboratory Tests 11/16/17 04:31: Urine Color AMBERH, Urine Clarity VERY CLOUDYH, Urine pH 5, Urine Specific [place] 1.025H, Urine Protein 1+H, Urine Glucose (UA) 2+H, Urine Ketones NEGATIVE, Urine Nitrite NEGATIVE, Urine Bilirubin NEGATIVE, Urine Urobilinogen NORMAL, Urine Leukocyte Esterase 3+H, Urine RBC (Auto) 1+H, Urine RBC RARE, Urine WBC 25-50H, Urine Squamous Epithelial Cells 10-25H, Urine Crystals NONE, Urine Bacteria FEWH, Urine Casts NONE, Urine Mucus NEGATIVE, Urine Culture Indicated YES 11/16/17 04:44: White Blood Count 6.5, Red Blood Count 4.33L, Hemoglobin 14.1, Hematocrit 42, Mean Corpuscular Volume 96, Mean Corpuscular Hemoglobin 33, Mean Corpuscular Hemoglobin Concent 34, Red Cell Distribution Width 11.8, Platelet Count 181, Mean Platelet Volume 11.4H, Neutrophils (%) (Auto) 48, Lymphocytes (%) (Auto) 41 , Monocytes (%) (Auto) 9, Eosinophils (%) (Auto) 2, Basophils (%) (Auto) 0, Neutrophils # (Auto) 3.1, Lymphocytes # (Auto) 2.7, Monocytes # (Auto) 0.6, Eosinophils # (Auto) 0.1, Basophils # (Auto) 0.0, Sodium Level 142, Potassium Level 4.0, Chloride Level 109H, Carbon Dioxide Level 22, Anion Gap 11, Blood Urea Nitrogen 9, Creatinine 0.74, Estimat Glomerular Filtration Rate > 60, BUN/ Creatinine Ratio 12, Glucose Level 192H, Calcium Level 9.6, Corrected Calcium 9.6, Total Bilirubin 0.4, Aspartate Amino Transf (AST/SGOT) 27, Alanine Aminotransferase (ALT/SGPT) 30, Alkaline Phosphatase 94, Total Protein 7.1, Albumin 4.0, Amylase Level 30, Lipase 15 Assessment/Plan Assessment/Plan Assessment/Plan PSBO N/V Diarrhea Pt will remain npo, IV fluids, pain control and anti-emetics. Once she has no abdominal pain or nausea we can start diet and advance slowly. No obvious transition point and at this time I don't believe a small bowel follow through is needed. Will monitor her; if she has more vomiting will need to replace the NGT. This is most likely a viral gastroenteritis; however, she does have some fluid above the liver that is odd in appearance. Clinical Quality Measures DVT/VTE Risk/Contraindication: Risk Factor Score Per Nursin RFS Level Per Nursing on Admit: 4+=Very High AMANDA TRIANA DO Nov 16, 2017 12:19
[2017-11-16] MEDS: inSUlin ASPART (NovoLOG) 1 UNIT/0.01 ML (CHARGE PER UNIT) SC SCH ×3 (13:42→23:47)
[2017-11-16] MEDS: fentaNYL INJECTION 100 MCG/2 ML AMP IV PRN ×2 (13:48→16:59)
[2017-11-16 16:05] VITALS: BP 113/66
[2017-11-16] MEDS: ONDANSETRON 4 MG/2 ML (SDV) Z0FRAN IV PRN ×2 (16:59→21:04)
[2017-11-16 19:40] VITALS: BP 122/75
[2017-11-17 00:12] VITALS: BP 104/53
[2017-11-17 04:00] VITALS: BP 90/51
[2017-11-17] MEDS: inSUlin ASPART (NovoLOG) 1 UNIT/0.01 ML (CHARGE PER UNIT) SC SCH ×3 (05:56→18:37)
[2017-11-17 06:06] LABS: BASOPHILS % (AUTO) 0 % (0-10); EOSINOPHILS # (AUTO) 0.1 10^3/uL (0.0-0.3); EOSINOPHILS % (AUTO) 2 % (0-10); HEMATOCRIT 36 % (35-52); HEMOGLOBIN 12.1 G/DL (11.5-16.0); LYMPHOCYTES # (AUTO) 3.2 X 10^3 (1.0-4.0); LYMPHOCYTES % (AUTO) 55 % (12-44); MEAN CORPUSCULAR HEMOGLOBIN 34 PG (25-34); MEAN CORPUSCULAR HGB CONC 34 G/DL (32-36); MEAN CORPUSCULAR VOLUME 99 FL (80-99); MEAN PLATELET VOLUME 11.5 FL (7.4-10.4); MONOCYTES # (AUTO) 0.4 X 10^3 (0.0-1.0); MONOCYTES % (AUTO) 7 % (0-12); NEUTROPHILS # (AUTO) 2.1 X 10^3 (1.8-7.8); NEUTROPHILS % (AUTO) 37 % (42-75); PLATELET COUNT 139 10^3/uL (130-400); RED CELL DISTRIBUTION WIDTH 11.9 % (10.0-14.5); WHITE BLOOD COUNT 5.8 10^3/uL (4.3-11.0)
[2017-11-17 06:33] LABS: ALANINE AMINOTRANSFERASE 23 U/L (0-55); ALBUMIN 3.3 GM/DL (3.2-4.5); ALKALINE PHOSPHATASE 63 U/L (40-136); BILIRUBIN,TOTAL 0.4 MG/DL (0.1-1.0); BUN/CREATININE RATIO 6; CALCIUM 8.2 MG/DL (8.5-10.1); CARBON DIOXIDE 23 MMOL/L (21-32); CHLORIDE 110 MMOL/L (98-107); CREATININE SERUM 0.64 MG/DL (0.60-1.30); GFR ESTIMATED > 60; GLUCOSE 138 MG/DL (70-105); POTASSIUM 3.8 MMOL/L (3.6-5.0); SODIUM 141 MMOL/L (135-145); TOTAL PROTEIN 5.8 GM/DL (6.4-8.2)
[2017-11-17] MEDS: D5 1/2 NS W/KCL 20 MEQ/L 1,000 ML IV SCH ×3 (06:36→20:29)
[2017-11-17 08:00] VITALS: BP 88/60
[2017-11-17] MEDS: ONDANSETRON 4 MG/2 ML (SDV) Z0FRAN IV PRN ×3 (09:50→20:29)
[2017-11-17] MEDS: PANTOPRAZOLE 40 MG (PROTONIX) VIAL IV SCH (09:50)
[2017-11-17] MEDS: cefTRIAXone 1 GM/NS 50 ML IVPB IV SCH ×2 (09:51)
[2017-11-17 12:00] VITALS: BP 104/56
--- NOTE | 2017-11-17 13:38 | Progress Note ---
Subjective Time Seen by a Provider: 12:22 Subjective/Events-last exam Pt seen and examined, she states she feels better. Still has some pain when she moves around, but she was up walking. Small amount of flatus last night, still no BM. Pt has some nausea but no vomiting. Review of Systems General: No Chills Pulmonary: No Dyspnea, No Cough Cardiovascular: No: Chest Pain, Palpitations Gastrointestinal: Nausea, Abdominal Pain Objective Exam Vital Signs Date Time Temp Pulse Resp B/P (MAP) Pulse Ox O2 Delivery O2 Flow Rate FiO2 11/17/17 12:00 98.6 73 18 104/56 (72) 90 Room Air 11/17/17 08:00 98.3 72 20 88/60 (69) 92 Room Air 11/17/17 04:00 97.0 73 16 90/51 (64) 92 Room Air 11/17/17 00:12 98.0 76 16 104/53 (70) 94 Room Air 11/16/17 20:00 Room Air 11/16/17 19:40 97.5 81 18 122/75 (91) 94 Room Air 11/16/17 16:05 97.0 72 18 113/66 (82) 93 Room Air I & O 11/17/17 07:00 Intake Total 2050 ml Output Total 2200 ml Balance -150 ml Capillary Refill : Less Than 3 Seconds General Appearance: No Apparent Distress, Obese HEENT: PERRL/EOMI, Moist Mucous Membranes Respiratory: Chest Non Tender, Lungs Clear, Normal Breath Sounds, No Accessory Muscle Use, No Respiratory Distress Cardiovascular: Regular Rate, Rhythm, No Edema, No Murmur Gastrointestinal: soft, no organomegaly; No distended, No guarding, No rebound ; tenderness (mostly RUQ and midepigastric) Neurologic/Psychiatric: Alert, Oriented x3, No Motor/Sensory Deficits, Normal 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/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, 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 as 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 Results Lab Laboratory Tests 11/16/17 18:36: Glucometer 152H 11/16/17 23:43: Glucometer 135H 11/17/17 05:28: White Blood Count 5.8, Red Blood Count 3.60L, Hemoglobin 12.1, Hematocrit 36, Mean Corpuscular Volume 99, Mean Corpuscular Hemoglobin 34, Mean Corpuscular Hemoglobin Concent 34, Red Cell Distribution Width 11.9, Platelet Count 139, Mean Platelet Volume 11.5H, Neutrophils (%) (Auto) 37L, Lymphocytes (%) (Auto) 55H, Monocytes (%) (Auto) 7, Eosinophils (%) (Auto) 2, Basophils (%) (Auto) 0, Neutrophils # (Auto) 2.1, Lymphocytes # (Auto) 3.2, Monocytes # (Auto) 0.4, Eosinophils # (Auto) 0.1, Basophils # (Auto) 0.0, Sodium Level 141, Potassium Level 3.8, Chloride Level 110H, Carbon Dioxide Level 23, Anion Gap 8, Blood Urea Nitrogen 4L, Creatinine 0.64, Estimat Glomerular Filtration Rate > 60, BUN/ Creatinine Ratio 6, Glucose Level 138H, Calcium Level 8.2L, Corrected Calcium 8.8, Total Bilirubin 0.4, Aspartate Amino Transf (AST/SGOT) 22, Alanine Aminotransferase (ALT/SGPT) 23, Alkaline Phosphatase 63, Total Protein 5.8L, Albumin 3.3 11/17/17 05:47: Glucometer 128H 11/17/17 12:01: Glucometer 167H Microbiology 11/16/17 Urine Culture - Final, Complete See Report Assessment/Plan Assessment/Plan Assessment/Plan PSBO N/V Diarrhea Will start clear liquids and ok to have prune juice; decrease IV fluids, pain control and anti-emetics. Will continue to monitor her; but she appears to be improving. I still think this was a viral gastroenteritis. Unsure of significance of the fluid above her liver; will just watch and if pain changes may get US. Clinical Quality Measures DVT/VTE Risk/Contraindication: Risk Factor Score Per Nursin RFS Level Per Nursing on Admit: 4+=Very High AMANDA TRIANA DO Nov 17, 2017 13:37
[2017-11-17 15:35] VITALS: BP 119/66
[2017-11-17 20:00] VITALS: BP 130/73
[2017-11-18] VITALS: BP 109/64
[2017-11-18] MEDS: inSUlin ASPART (NovoLOG) 1 UNIT/0.01 ML (CHARGE PER UNIT) SC SCH ×2 (00:30→05:27)
[2017-11-18] MEDS: D5 1/2 NS W/KCL 20 MEQ/L 1,000 ML IV SCH (02:52)
[2017-11-18 04:00] VITALS: BP 103/57
[2017-11-18 08:00] VITALS: BP 96/52
[2017-11-18] MEDS: cefTRIAXone 1 GM/NS 50 ML IVPB IV SCH ×2 (08:24)
[2017-11-18] MEDS: PANTOPRAZOLE 40 MG (PROTONIX) VIAL IV SCH (08:24)
--- NOTE | 2017-11-18 08:32 | History & Physicial ---
History of Present Illness History of Present Illness Reason for visit/HPI Vomiting. Patient like black. Came out to the emergency room. X-ray shows partial small bowel obstruction. Patient admitted Date of Admission Nov 16, 2017 at 07:32 Time Seen by a Provider: 08:28 I consulted on this patient on 11/18/17 08:28 Attending Physician Beth Bird DO Admitting Physician Beth Bird DO Consult Allergies and Home Medications Allergies Coded Allergies: Sulfa (Sulfonamide Antibiotics) (Verified Allergy, Severe, RASH IN MOUTH, 05/17/16) hydrocodone (Verified Allergy, Intermediate, GI UPSET, 05/17/16) meperidine (Verified Allergy, Intermediate, GI UPSET, 05/17/16) Home Medications Acetaminophen 500 Mg Tab, 1,000 MG PO BID, (Reported) TAKES 2 (500MG) TABLETS TWICE DAILY Benzonatate 200 Mg Capsule, 200 MG PO Q8H PRN for COUGH Prescribed by: VIVEK PRATHER on 11/11/162115 Lactobacillus Acidophilus 1 Each Capsule, 1 EACH PO DAILY, (Reported) Levothyroxine Sodium 75 Mcg Tablet, 75 MCG PO DAILY, (Reported) Metformin HCl 500 Mg [id number], 500 MG PO BID, (Reported) Oxycodone HCl/Acetaminophen 1 Each Tablet, 1-2 EACH PO Q4H Prescribed by: ALEJANDRINA PERRIN on 05/24/16 1002 Pantoprazole Sodium 40 Mg Tablet.dr, 40 MG PO DAILY, (Reported) Prednisone 20 Mg Tab, 40 MG PO DAILY Prescribed by: VIVEK PRATHER on 11/11/162115 Tramadol HCl 50 Mg Tablet, 50 MG PO PRN, (Reported) Trazodone Hcl 50 Mg Tablet, 50 MG PO HS, (Reported) Patient Home Medication List Home Medication List Reviewed: Yes Past Ehaywyl-Mmwywh-Kgkhcl Hx Patient Social History Alcohol Use: Occasionally Uses Number of Drinks Today: II Alcohol Beverage of Choice: Other Recreational Drug Use: No Smoking Status: Former Smoker Former Smoker, Quit: Nov 16, 2012 Type Used: Cigarettes Physical Abuse Screen: No Sexual Abuse: No Recent Foreign Travel: No Contact w/other who traveled: No Recent Hopitalizations: No Recent Infectious Disease Expo: No Immunizations Up To Date Tetanus Booster (TDap): Unknown Date of Influenza Vaccine: Nov 10, 2015 Seasonal Allergies Seasonal Allergies: No Surgeries Yes (ORAL SURGERY FOR JAW FX; L KNEE SCOPE; HYST/OVARIES INTACT; COLONOSCOPY) Gallbladder, Hysterectomy, Orthopedic, Tonsillectomy, 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 Respiratory Yes Currently Using CPAP: No Cardiovascular Yes (TACHYCARDIA) High Cholesterol, Palpitations Neurological No Reproductive System Hx Reproductive Disorders: No Sexually Transmitted Disease: No HIV/AIDS: 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, 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 Genitourinary Yes Bladder Infection, UTI-Chronic Gastrointestinal Yes (HX ILEUS/SBO--NO SURGERY) Gastroesophageal Reflux, Chronic Constipation, Diverticulosis Musculoskeletal Yes (muscle pain all over) Degenerate Disk Disease, Arthritis, Fibromyalgia, Chronic Back Pain Endocrine History of Endocrine Disorders: Yes Endocrine Disorders: Hypothyroidsim, Diabetes, Non-Insulin dep HEENT History of HEENT Disorders: No Loss of Vision: Bilateral Hearing Impairment: Denies Cancer No Psychosocial History of Psychiatric Problem: Yes Behavioral Health Disorders: Depression Integumentary History of Skin or Integumenta: Yes (RASH/ACNE UNDER ARMS AND BREAST) Blood Transfusions History of Blood Disorders: No Adverse Reaction to a Blood Tr: No Family Medical History Significant Family History: Cancer, CAD Over 55 Years Old, Diabetes Family Hx: Alcoholism 09 BROTHER, Onset:Unknown Cancer 03 FATHER, Onset:Unknown 09 BROTHER, Onset:Unknown Cataract 03 MOTHER, Onset:Unknown Congestive heart failure 03 MOTHER, Onset:Unknown Family history: Diabetes mellitus 03 FATHER, Onset:Unknown 03 MOTHER, Onset:Unknown Family history: Thyroid disorder 03 MOTHER, Onset:Unknown Heart disease 03 FATHER, Onset:Unknown History of drug abuse 09 BROTHER, Onset:Unknown Review of Systems Constitutional: no symptoms reported EENTM: no symptoms reported Respiratory: no symptoms reported Cardiovascular: no symptoms reported Gastrointestinal: no symptoms reported Musculoskeletal: no symptoms reported Physical Exam Vital Signs Vital Signs - First Documented 11/16/17 11/16/17 04:23 08:35 Temp 97.0 Pulse 84 Resp 12 B/P (MAP) 127/83 (98) Pulse Ox 96 O2 Delivery Room Air Capillary Refill : Less Than 3 Seconds Height, Weight, BMI Height: 5'6.00" Weight: 299lbs. 3.0oz. 135.292514bn; 48.3 BMI Method:Stated General Appearance: No Apparent Distress, WD/WN Eyes: Bilateral Eye Normal Inspection HEENT: Normal ENT Inspection Neck: Full Range of Motion, Normal Inspection Respiratory: No Accessory Muscle Use Cardiovascular: Regular Rate, Rhythm, No Murmur Gastrointestinal: Soft Assessment/Plan Assessment and Plan Partial small bowel obstruction. Vomiting nausea and vomiting. Diabetes Admission Diagnosis Admission Status: Inpatient Order (span 2 midnights) Reason for Inpatient Admission: Vomiting. Nausea and vomiting Clinical Quality Measures DVT/VTE Risk/Contraindication: Risk Factor Score Per Nursin RFS Level Per Nursing on Admit: 4+=Very High BETH BIRD DO Nov 18, 2017 08:32
[2017-11-18] MEDS ORDERED: SITA100T12 PO (10:14)
[2017-11-18] MEDS ORDERED: TRAZ-189 PO (10:14)
[2017-11-18] MEDS ORDERED: LEVO150T6 PO (10:14)
[2017-11-18] MEDS ORDERED: TURM538C PO (10:14)
[2017-11-18] MEDS ORDERED: DICL50TA6 PO (10:14)
[2017-11-18] MEDS ORDERED: GLIM4TAB PO (10:14)
[2017-11-18 12:00] VITALS: BP 110/59
[2017-11-18] MEDS: ONDANSETRON 4 MG/2 ML (SDV) Z0FRAN IV PRN (12:42)
--- NOTE | 2017-11-18 13:38 | Progress Note ---
Subjective Time Seen by a Provider: 13:21 Subjective/Events-last exam Pt seen and examined, she is hungry and wants to eat more than liquids. Denies abdominal pain but does complain of RASHEED. +BM and flatus Review of Systems General: No Chills, No Night Sweats HEENT: Head Aches Pulmonary: No Dyspnea, No Cough Cardiovascular: No: Chest Pain, Palpitations Gastrointestinal: Nausea; No: Vomiting, Abdominal Pain Objective Exam Vital Signs Date Time Temp Pulse Resp B/P (MAP) Pulse Ox O2 Delivery O2 Flow Rate FiO2 11/18/17 04:00 97.7 93 16 103/57 (72) 91 Room Air 11/18/17 00:00 97.2 71 16 109/64 (79) 95 Room Air 11/17/17 20:00 98.3 74 20 130/73 (92) 93 Room Air 11/17/17 15:35 97.9 78 18 119/66 (83) 93 Room Air I & O 11/18/17 07:00 Intake Total 2780 ml Output Total 4500 ml Balance -1720 ml Capillary Refill : Less Than 3 Seconds General Appearance: No Apparent Distress, WD/WN HEENT: Normal ENT Inspection Neck: Full Range of Motion, Normal Inspection Respiratory: No Accessory Muscle Use Cardiovascular: Regular Rate, Rhythm, No Murmur Gastrointestinal: soft, no organomegaly; No distended, No guarding, No rebound ; tenderness (mostly RUQ and midepigastric) Neurologic/Psychiatric: Alert, Oriented x3, No Motor/Sensory Deficits, Normal 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 Clinical Quality Measures DVT/VTE Risk/Contraindication: Risk Factor Score Per Nursin RFS Level Per Nursing on Admit: 4+=Very High AMANDA TRIANA DO Nov 18, 2017 13:38
--- NOTE | 2017-11-18 13:43 | Discharge Inst-Surgical ---
Discharge Inst-Surgical Depart Medication/Instructions New, Converted or Re-Newed RX: Other (No Rx needed) Patient Instructions Follow up Appt: Make appointment for 1 week. Instructions: No strenuous activity. May shower in 24 hours. Use incentive spirometer at home as directed. No Smoking Symptoms to Report: Appetite Changes, Extremity Discoloration, Numbness/Tingling, Swelling Increased , Bleeding Excessive, Eyesight Changes, Pain Increased, Urine Color Change, Constipation(Persistent), Fever over 101 degree F, Pain/Pressure in chest, Urinating Difficulty, Cough Up/Vomit Blood, Heart Beat Irreg/Pounding, Pain/ Pressure in jaw, Vaginal Bleeding Increase, Cramps in feet or legs, Lightheadedness, Pain/Pressure in shoulder, Diarrhea(Persistent), Memory Changes Suddenly, Questions/Concerns, Weight gain consecutive days, Dizziness/ Fainting, Nausea/Vomiting, Shortness of Breath, Weight gain over 2 pounds If questions or concerns contact your physician Or seek help at emergency department. Activity Driving Instructions: You May Drive Diet Diet After 24 Hours: Clear Liquid if Nauseous Skin/Wound Care Bathing Instructions: AMANDA Angelo DO Nov 18, 2017 13:43
[2017-11-18 15:20] VITALS: BP 100/56
[2017-11-18 17:15] VITALS: BP 102/56
[2017-11-18] MEDS ORDERED: traZODone 50 MG (DESYREL) TAB PO SCH (21:00)
--- NOTE | 2017-11-19 14:22 | Physician Query-Final Dx ---
TOMA MERCEDES 11/19/17 1421: Final Diagnosis Give Final Diagnosis Please give Final Diagnosis AMANDA TRIANA DO 11/21/17 2328: Final Diagnosis Give Final Diagnosis PSBO vs gastroenteritis Nausea and vomiting TOMA MERCEDES Nov 19, 2017 14:21 AMANDA TRIANA DO Nov 21, 2017 23:28
--- NOTE | 2017-11-21 07:18 | Discharge Summary ---
Diagnosis/Chief Complaint Date of Admission Nov 16, 2017 at 07:32 Date of Discharge Nov 18, 2017 at 17:15 Discharge Date: Nov 18, 2017 Discharge Time: 07:16 Discharge Diagnosis She'll small bowel obstruction. Plan gastroenteritis. Nausea and vomiting. Diarrhea. GERD. Hypothyroid. Obesity. Personal history of nicotine dependence Reason Hospital Visit Vomiting. Patient like sulfur. Came out to the emergency room. X-ray shows partial small bowel obstruction. Patient admitted Discharge Summary Consultations Surgeon Discharge Physical Examination Allergies: Coded Allergies: Sulfa (Sulfonamide Antibiotics) (Verified Allergy, Severe, RASH IN MOUTH, 05/17/16) fentanyl (Verified Allergy, Intermediate, NAUSEA, 11/18/17) FEEL BAD hydrocodone (Verified Allergy, Intermediate, GI UPSET, 05/17/16) meperidine (Verified Allergy, Intermediate, GI UPSET, 05/17/16) Vitals & I&Os Vital Signs Date Time Temp Pulse Resp B/P (MAP) Pulse Ox O2 Delivery O2 Flow Rate FiO2 11/18/17 17:15 76 18 102/56 94 Room Air 11/18/17 15:20 98.1 Hospital Course Patient did better. Patient able to eat. Labs (last 24 hrs) Laboratory Tests 11/16/17 04:31: Urine Color AMBERH, Urine Clarity VERY CLOUDYH, Urine pH 5, Urine Specific [place] 1.025H, Urine Protein 1+H, Urine Glucose (UA) 2+H, Urine Ketones NEGATIVE, Urine Nitrite NEGATIVE, Urine Bilirubin NEGATIVE, Urine Urobilinogen NORMAL, Urine Leukocyte Esterase 3+H, Urine RBC (Auto) 1+H, Urine RBC RARE, Urine WBC 25-50H, Urine Squamous Epithelial Cells 10-25H, Urine Crystals NONE, Urine Bacteria FEWH, Urine Casts NONE, Urine Mucus NEGATIVE, Urine Culture Indicated YES 11/16/17 04:44: White Blood Count 6.5, Red Blood Count 4.33L, Hemoglobin 14.1, Hematocrit 42, Mean Corpuscular Volume 96, Mean Corpuscular Hemoglobin 33, Mean Corpuscular Hemoglobin Concent 34, Red Cell Distribution Width 11.8, Platelet Count 181, Mean Platelet Volume 11.4H, Neutrophils (%) (Auto) 48, Lymphocytes (%) (Auto) 41 , Monocytes (%) (Auto) 9, Eosinophils (%) (Auto) 2, Basophils (%) (Auto) 0, Neutrophils # (Auto) 3.1, Lymphocytes # (Auto) 2.7, Monocytes # (Auto) 0.6, Eosinophils # (Auto) 0.1, Basophils # (Auto) 0.0, Sodium Level 142, Potassium Level 4.0, Chloride Level 109H, Carbon Dioxide Level 22, Anion Gap 11, Blood Urea Nitrogen 9, Creatinine 0.74, Estimat Glomerular Filtration Rate > 60, BUN/ Creatinine Ratio 12, Glucose Level 192H, Calcium Level 9.6, Corrected Calcium 9.6, Total Bilirubin 0.4, Aspartate Amino Transf (AST/SGOT) 27, Alanine Aminotransferase (ALT/SGPT) 30, Alkaline Phosphatase 94, Total Protein 7.1, Albumin 4.0, Amylase Level 30, Lipase 15 11/16/17 07:32: Lab Scanned Report Referred Lab Report 11/16/17 12:19: Glucometer 243H 11/16/17 18:36: Glucometer 152H 11/16/17 23:43: Glucometer 135H 11/17/17 05:28: White Blood Count 5.8, Red Blood Count 3.60L, Hemoglobin 12.1, Hematocrit 36, Mean Corpuscular Volume 99, Mean Corpuscular Hemoglobin 34, Mean Corpuscular Hemoglobin Concent 34, Red Cell Distribution Width 11.9, Platelet Count 139, Mean Platelet Volume 11.5H, Neutrophils (%) (Auto) 37L, Lymphocytes (%) (Auto) 55H, Monocytes (%) (Auto) 7, Eosinophils (%) (Auto) 2, Basophils (%) (Auto) 0, Neutrophils # (Auto) 2.1, Lymphocytes # (Auto) 3.2, Monocytes # (Auto) 0.4, Eosinophils # (Auto) 0.1, Basophils # (Auto) 0.0, Sodium Level 141, Potassium Level 3.8, Chloride Level 110H, Carbon Dioxide Level 23, Anion Gap 8, Blood Urea Nitrogen 4L, Creatinine 0.64, Estimat Glomerular Filtration Rate > 60, BUN/ Creatinine Ratio 6, Glucose Level 138H, Calcium Level 8.2L, Corrected Calcium 8.8, Total Bilirubin 0.4, Aspartate Amino Transf (AST/SGOT) 22, Alanine Aminotransferase (ALT/SGPT) 23, Alkaline Phosphatase 63, Total Protein 5.8L, Albumin 3.3 11/17/17 05:47: Glucometer 128H 9/30/18 12:01: Glucometer 167H 11/17/17 18:20: Glucometer 155H 11/18/17 00:28: Glucometer 183H 11/18/17 05:07: Glucometer 122H 11/18/17 12:29: Glucometer 134H Microbiology 11/16/17 Urine Culture - Final, Complete See Report Laboratory Tests 11/16/17 04:44 11/17/17 05:28 Pending Labs Microbiology Date/Time Source Procedure Growth Status 11/16/17 04:31 Urine Clean Catch Urine Culture - Final See Report Complete Laboratory Tests 11/16/17 04:31: Urine Color CARTER, Urine Clarity VERY CLOUDY, Urine pH 5, Urine Specific [place] 1.025, Urine Protein 1+, Urine Glucose (UA) 2+, Urine Ketones NEGATIVE, Urine Nitrite NEGATIVE, Urine Bilirubin NEGATIVE, Urine Urobilinogen NORMAL, Urine Leukocyte Esterase 3+, Urine RBC (Auto) 1+, Urine RBC RARE, Urine WBC 25- 50, Urine Squamous Epithelial Cells 10-25, Urine Crystals NONE, Urine Bacteria FEW, Urine Casts NONE, Urine Mucus NEGATIVE, Urine Culture Indicated YES 11/16/17 04:44: White Blood Count 6.5, Red Blood Count 4.33, Hemoglobin 14.1, Hematocrit 42, Mean Corpuscular Volume 96, Mean Corpuscular Hemoglobin 33, Mean Corpuscular Hemoglobin Concent 34, Red Cell Distribution Width 11.8, Platelet Count 181, Mean Platelet Volume 11.4, Neutrophils (%) (Auto) 48, Lymphocytes (%) (Auto) 41 , Monocytes (%) (Auto) 9, Eosinophils (%) (Auto) 2, Basophils (%) (Auto) 0, Neutrophils # (Auto) 3.1, Lymphocytes # (Auto) 2.7, Monocytes # (Auto) 0.6, Eosinophils # (Auto) 0.1, Basophils # (Auto) 0.0, Sodium Level 142, Potassium Level 4.0, Chloride Level 109, Carbon Dioxide Level 22, Anion Gap 11, Blood Urea Nitrogen 9, Creatinine 0.74, Estimat Glomerular Filtration Rate > 60, BUN/ Creatinine Ratio 12, Glucose Level 192, Calcium Level 9.6, Corrected Calcium 9.6 , Total Bilirubin 0.4, Aspartate Amino Transf (AST/SGOT) 27, Alanine Aminotransferase (ALT/SGPT) 30, Alkaline Phosphatase 94, Total Protein 7.1, Albumin 4.0, Amylase Level 30, Lipase 15 11/16/17 07:32: Lab Scanned Report Referred Lab Report 11/16/17 12:19: Glucometer 243 11/16/17 18:36: Glucometer 152 11/16/17 23:43: Glucometer 135 11/17/17 05:28: White Blood Count 5.8, Red Blood Count 3.60, Hemoglobin 12.1, Hematocrit 36, Mean Corpuscular Volume 99, Mean Corpuscular Hemoglobin 34, Mean Corpuscular Hemoglobin Concent 34, Red Cell Distribution Width 11.9, Platelet Count 139, Mean Platelet Volume 11.5, Neutrophils (%) (Auto) 37, Lymphocytes (%) (Auto) 55 , Monocytes (%) (Auto) 7, Eosinophils (%) (Auto) 2, Basophils (%) (Auto) 0, Neutrophils # (Auto) 2.1, Lymphocytes # (Auto) 3.2, Monocytes # (Auto) 0.4, Eosinophils # (Auto) 0.1, Basophils # (Auto) 0.0, Sodium Level 141, Potassium Level 3.8, Chloride Level 110, Carbon Dioxide Level 23, Anion Gap 8, Blood Urea Nitrogen 4, Creatinine 0.64, Estimat Glomerular Filtration Rate > 60, BUN/ Creatinine Ratio 6, Glucose Level 138, Calcium Level 8.2, Corrected Calcium 8.8 , Total Bilirubin 0.4, Aspartate Amino Transf (AST/SGOT) 22, Alanine Aminotransferase (ALT/SGPT) 23, Alkaline Phosphatase 63, Total Protein 5.8, Albumin 3.3 11/17/17 05:47: Glucometer 128 11/17/17 12:01: Glucometer 167 11/17/17 18:20: Glucometer 155 11/18/17 00:28: Glucometer 183 11/18/17 05:07: Glucometer 122 11/18/17 12:29: Glucometer 134 Discharge Home Medications: Active Scripts Active Reported Turmeric (Turmeric Root Extract) 538 Mg Capsule 538 Mg PO DAILY Januvia (Sitagliptin Phosphate) 100 Mg Tablet 100 Mg PO DAILY Diclofenac Sodium 50 Mg Tablet.dr 50 Mg PO HS Trazodone HCl 50 Mg Tablet 50 Mg PO HS Levothyroxine Sodium 150 Mcg Tablet 150 Mcg PO DAILY Glimepiride 4 Mg Tablet 4 Mg PO BID Pantoprazole Sodium 40 Mg Tablet.dr 40 Mg PO DAILY Instructions to patient/family Please see electronic discharge instructions given to patient. Clinical Quality Measures DVT/VTE Risk/Contraindication: Risk Factor Score Per Nursin RFS Level Per Nursing on Admit: 4+=Very High BETH BAIN DO Nov 21, 2017 07:18
== END 2017-11-18 17:15 | disposition home or self-care (01) | DRG 389 ==
LOC: EDUNIT# 04:10 → ER 04:12 → 4TH 07:32
PROVIDERS: ADMIT Surgery; ATTEND Family Medicine
PROC: 0D9670Z Drainage of Stomach with Drainage Device, Via Natural or Artificial Opening (ICD-10-PCS; principal; 2017-11-16)
DX: K56.690 Other partial intestinal obstruction (principal); A08.4 Viral intestinal infection, unspecified; E11.9 Type 2 diabetes mellitus without complications; Z68.42 Body mass index [BMI] 45.0-49.9, adult; K59.09 Other constipation; G47.30 Sleep apnea, unspecified; E78.00 Pure hypercholesterolemia, unspecified; R00.2 Palpitations; K21.9 Gastro-esophageal reflux disease without esophagitis; K57.90 Diverticulosis of intestine, part unspecified, without perforation or abscess without bleeding; K58.9 Irritable bowel syndrome, unspecified; M79.7 Fibromyalgia; M19.91 Primary osteoarthritis, unspecified site; E03.9 Hypothyroidism, unspecified; F32.9 Major depressive disorder, single episode, unspecified; R21 Rash and other nonspecific skin eruption; L70.9 Acne, unspecified; E66.9 Obesity, unspecified; Z87.440 Personal history of urinary (tract) infections; Z87.891 Personal history of nicotine dependence; Z79.84 Long term (current) use of oral hypoglycemic drugs
CPT/HCPCS: 36415; 71045; 74022; 74177; 80053; 81000; 82150; 82962; 83690; 85025; 87088; 96361; 96374; 96376

== ENCOUNTER 2018-11-17 05:49 | Outpatient (CLI) | payer MEDICAID ==
[~2018-11-17] VITALS: Ht 170.2 cm; Wt 136.2 kg
[~2018-11-17 05:49] MED LIST changes: +DICL50TA6 PO; +GLIM4TAB PO; +SITA100T12 PO; +TRAZ-222 PO; +TURM538C PO
[2018-11-17] MEDS ORDERED: TRAM50TA2 PO (14:49)
[2018-11-17] MEDS ORDERED: LEVO175T2 PO (14:49)
[2018-11-17] MEDS ORDERED: CANA100T PO (14:49)
[2018-11-17] MEDS ORDERED: MV-M1TAB57 PO (14:49)
[2018-11-17] MEDS ORDERED: DICL75TA2 PO (14:49)
== END 2018-11-17 14:57 | disposition home or self-care (01) ==
LOC: PREOP 05:49
PROVIDERS: ATTEND Surgery
DX: Z01.818 Encounter for other preprocedural examination (principal)

== ENCOUNTER 2018-11-24 09:25 | Day surgery (SDC) | payer MEDICAID ==
[~2018-11-24] VITALS: Ht 167.7 cm; Wt 136.2 kg
[2018-11-24] VITALS (7 sets, daily range): BP systolic 84–141; BP diastolic 55–85
[~2018-11-24 09:25] MED LIST changes: +CANA100T PO; +DICL75TA2 PO; +LEVO175T2 PO; +MV-M1TAB57 PO
[2018-11-24] MEDS ORDERED: LACTATED RINGERS 1,000 ML IV ONE (09:34)
[2018-11-24] MEDS ORDERED: LACTATED RINGERS 1,000 ML IV STA (09:38)
[2018-11-24] MEDS ORDERED: HURRICAINE EXT TUBE (BENZOCAINE) XX PRN (09:45)
--- NOTE | 2018-11-24 10:58 | Progress Note-Pre Operative ---
Pre-Operative Progress Note H&P Reviewed The H&P was reviewed, patient examined and no changes noted. Time Seen by Provider: 10:56 Date H&P Reviewed: Nov 24, 2018 Time H&P Reviewed: 10:53 Pre-Operative Diagnosis: rectal bleed, change in bowel habits, gastritis AMANDA TRIANA DO Nov 24, 2018 10:58
[2018-11-24] MEDS ORDERED: PROPOFOL INJECTION 50 ML IV ONE ×2 (11:46→12:18)
[2018-11-24] MEDS ORDERED: MIDAZOLAM 2 MG/2 ML (VERSED) VIAL ONE (11:47)
[2018-11-24] MEDS ORDERED: HURRICAINE EXT TUBE (BENZOCAINE) ONE (11:55)
--- NOTE | 2018-11-24 12:55 | Anesthesia-General Post-Op ---
MAC Patient Condition Mental Status/LOC: Same as Preop Cardiovascular: Satisfactory Nausea/Vomiting: Absent Respiratory: Satisfactory Pain: Controlled Complications: Absent Post Op Complications Complications None Follow Up Care/Instructions Patient Instructions None needed. Anesthesiology Discharge Order Discharge Order Patient is doing well, no complaints, stable vital signs, no apparent adverse anesthesia problems. No complications reported per nursing. RUKHSANA RODRIGUEZ CRNA Nov 24, 2018 12:55
--- NOTE | 2018-11-24 13:14 | Progress Note-Post Operative ---
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
--- NOTE | 2018-11-24 13:18 | Endoscopy Discharge Instruct ---
Endo Procedure/Findings Findings 1.: Hiatal Hernia, Gastritis, Other Findings (Gastric Polyp) 2.: Polyp 3.: Diverticulosis 4.: Internal Hemorrhoids Discharge Instructions - Activity: You might feel a little sleepy until tomorrow. This is due to the medicine you received to relax you. Until tomorrow, you should: NOT drive a car, operate machinery or power tools. NOT drink any alcoholic beverages. NOT make any important decisions or sign importortant papers. Do not return to work until tomorrow, unless otherwise instructed. Resume previous activities tomorrow. Diet: Start by taking liquids. If you tolerate liquids, advance to solid food. make an appointment for one week 1.: Colonscopy in 3 years 2.: EGD in 1 year Notify Physician - If you experience excessive bleeding, unusual abdominal pain, fever, or chest pain, contact your doctor immediately. AMANDA TRIANA DO Nov 24, 2018 13:18
--- NOTE | 2018-11-25 22:28 | OPERATIVE REPORT ---
DATE OF SERVICE: 11/24/2018 PREOPERATIVE DIAGNOSES: 1. Gastritis. 2. Rectal bleed. POSTOPERATIVE DIAGNOSES: 1. Gastritis. 2. Hiatal hernia. 3. Gastric polyps. 4. Esophagitis. 5. Colon polyps. 6. Diverticulosis. 7. Internal hemorrhoids. PROCEDURES: 1. EGD with biopsy. 2. EGD with hot snare polypectomy. 3. Colonoscopy with snare polypectomy. SURGEON: Carmelo Vincent DO. COMMERCIAL ROOFING ESTIMATOR: None. ANESTHESIA: IV sedation by GAS LEAK INSPECTOR HELPER. SPECIMEN: 1. One biopsy from the antrum, one biopsy from body of stomach, one biopsy from the GE junction and one gastric polyp. 2. Two polyps from the descending colon, one polyp from the sigmoid colon, and 2 polyps from the rectum. BLOOD LOSS: Scant. FLUIDS: Per anesthesia. POSTOPERATIVE CONDITION: Stable. INDICATION FOR PROCEDURE: The patient is a 58-year-old female who had some gastritis and had a history of rectal bleeding and needed a workup. FINDINGS: The patient had inflammation in the stomach as well as large gastric polyps, did not look the same as gastric fundic polyp. She also had some esophagitis noticed and in the colon she had multiple polyps, diverticula, and internal hemorrhoids. PROCEDURE NOTE: After informed consent was obtained, the patient was brought to the endoscopy suite and placed in the bed in the left lateral decubitus position. She was administered IV sedation by the GAS LEAK INSPECTOR HELPER, who then monitored her vitals the entire time, heart rate, blood pressure and pulse ox. We started with the EGD, placed the scope down the mouth through the esophagus into the stomach, into the stomach noted some inflammation took a picture of this, and then pushed into the duodenum. Duodenum looked fine, took a picture. Pulled back into the antrum, did a biopsy of the antrum and then pulled back and did a biopsy of body of stomach, retroflexed the scope saw a small hiatal hernia, took a picture of this and then noted some large gastric polyps elected to do a snare polypectomy to remove this polyp. It did not look exactly like just a plain gastric fundic polyp, but it may have been, did a snare polypectomy with heat and then actually had to suction this up and pulled the scope all the way out the mouth to get the polyp out because it would not suction up the channel. Pushed the scope back down the mouth through the esophagus into the stomach, pulled back and did a biopsy of the GE junction and then pulled up and noted some changes of the Z-line took a picture of this and then pulled the scope up the esophagus and out the mouth. Switched the camera, switched gloves, went down below, started the colonoscopy, pushed the scope in and on the way in, in the descending colon, saw 2 polyps, did snare polypectomy of these and then pushed all the way to the cecum, took a picture of appendiceal orifice, noted the ileocecal valve and then slowly withdrew the scope insufflating to look circumferentially at the bull looking the cecum, up the ascending colon to the hepatic flexure, then down the transverse colon, the splenic flexure, into the descending colon, through the descending colon and sigmoid, saw diverticula. In the sigmoid colon, saw another large polyp, did snare polypectomy and then down into the rectum, saw two more polyps, did another snare polypectomy here. Retroflexed the scope in the rectal vault, saw some grade II internal hemorrhoids, took a picture of this and then removed the scope. The patient tolerated the procedure. She was recovered in endoscopy suite. Job ID: [id number] DocumentID: [id number] Dictated Date: 11/25/2018 17:04:24 Clinical Rn Liaison Date: 11/25/2018 22:27:53 Dictated By: CARMELO VINCENT DO
== END 2018-11-24 13:40 | disposition home or self-care (01) ==
LOC: ENDO 09:25
PROVIDERS: ATTEND Surgery
DX: D12.4 Benign neoplasm of descending colon (principal); K21.0 Gastro-esophageal reflux disease with esophagitis; K62.1 Rectal polyp; K31.7 Polyp of stomach and duodenum; K29.70 Gastritis, unspecified, without bleeding; K44.9 Diaphragmatic hernia without obstruction or gangrene; K57.30 Diverticulosis of large intestine without perforation or abscess without bleeding; K64.8 Other hemorrhoids; E03.9 Hypothyroidism, unspecified; E11.9 Type 2 diabetes mellitus without complications; Z88.6 Allergy status to analgesic agent; Z88.2 Allergy status to sulfonamides; Z79.84 Long term (current) use of oral hypoglycemic drugs; Z79.891 Long term (current) use of opiate analgesic; Z88.5 Allergy status to narcotic agent; E66.01 Morbid (severe) obesity due to excess calories; Z68.42 Body mass index [BMI] 45.0-49.9, adult; Z82.5 Family history of asthma and other chronic lower respiratory diseases; Z80.9 Family history of malignant neoplasm, unspecified; Z90.710 Acquired absence of both cervix and uterus; Z90.49 Acquired absence of other specified parts of digestive tract; Z87.891 Personal history of nicotine dependence; G47.33 Obstructive sleep apnea (adult) (pediatric); F32.9 Major depressive disorder, single episode, unspecified
CPT/HCPCS: 82962; 88305

== ENCOUNTER → 2019-04-10 | Outpatient (CLI) | payer MEDICAID, BC ==
[~2019-04-10] MED LIST changes: -GLIM4TAB PO; +GLIM4TAB5 PO; +METF500T19 PO; -METF500T8 PO; -TRAM50TA2 PO; -TRAZ-222 PO; +TRZ50T PO
--- NOTE | 2019-04-10 16:40 | Diagnostic Imaging Report ---
PROCEDURE: US left lower extremity venous. TECHNIQUE: Multiple real-time grayscale images were obtained over the left lower extremity in various projections. Additional duplex Doppler and color Doppler images were also obtained. INDICATION: Left calf pain. FINDINGS: Left lower extremity femoropopliteal deep venous system is widely patent. No deep or superficial thrombus. No fluid collection demonstrated. IMPRESSION: Normal negative unilateral left lower extremity venous Doppler and ultrasound exam. Dictated by: Dictated on workstation # [id number]
--- NOTE | 2019-04-10 16:42 | Diagnostic Imaging Report ---
INDICATION: Left knee pain. FINDINGS: Three views of the left knee show meniscal calcification. There are osteophytes forming at the margins of the medial tibiofemoral joint space. There is no fracture, dislocation, or pathologic effusion. IMPRESSION: Mild degenerative changes in the medial compartment of the left knee. No acute abnormality seen. Dictated by: Dictated on workstation # [id number]
== END ==
LOC: RAD 13:03
PROVIDERS: ATTEND Family Medicine
DX: M17.12 Unilateral primary osteoarthritis, left knee (principal); M79.662 Pain in left lower leg
CPT/HCPCS: 73562

== ENCOUNTER 2019-05-01 04:42 | Observation (INO) | payer BC, MEDICAID ==
[~2019-05-01] VITALS: Ht 170 cm; Wt 136.4 kg
[2019-05-01] MEDS: NITROGLYCERIN 0.4 MG SL TABS BTL 25'S SL PRN ×2 (04:57→05:25)
[2019-05-01 05:00] LABS: BASOPHILS % (AUTO) 0 % (0-10); EOSINOPHILS # (AUTO) 0.1 10^3/uL (0.0-0.3); EOSINOPHILS % (AUTO) 2 % (0-10); HEMATOCRIT 43 % (35-52); HEMOGLOBIN 14.4 G/DL (11.5-16.0); LYMPHOCYTES % (AUTO) 41 % (12-44); MEAN CORPUSCULAR HEMOGLOBIN 32 PG (25-34); MEAN CORPUSCULAR HGB CONC 33 G/DL (32-36); MEAN CORPUSCULAR VOLUME 97 FL (80-99); MEAN PLATELET VOLUME 10.8 FL (7.4-10.4); MONOCYTES # (AUTO) 0.6 X 10^3 (0.0-1.0); MONOCYTES % (AUTO) 9 % (0-12); NEUTROPHILS # (AUTO) 3.6 X 10^3 (1.8-7.8); NEUTROPHILS % (AUTO) 49 % (42-75); PLATELET COUNT 184 10^3/uL (130-400); RED CELL DISTRIBUTION WIDTH 12.2 % (10.0-14.5); WHITE BLOOD COUNT 7.3 10^3/uL (4.3-11.0)
[2019-05-01] MEDS ORDERED: ASPIRIN 81 MG CHEW (CHILDREN'S ASA) PO ONE (05:00)
[2019-05-01 05:19] LABS: INR 1.1 (0.8-1.4); PROTHROMBIN TIME PATIENT 14.8 SEC (12.2-14.7)
[2019-05-01 05:26] LABS: CREATINE KINASE MB 1.8 NG/ML (<6.6)
[2019-05-01 05:27] LABS: ALANINE AMINOTRANSFERASE 26 U/L (0-55); ALBUMIN 4.2 GM/DL (3.2-4.5); ALKALINE PHOSPHATASE 94 U/L (40-136); AMYLASE 31 U/L (25-125); BILIRUBIN,TOTAL 0.4 MG/DL (0.1-1.0); BUN/CREATININE RATIO 26; CALCIUM 9.3 MG/DL (8.5-10.1); CARBON DIOXIDE 21 MMOL/L (21-32); CHLORIDE 107 MMOL/L (98-107); CREATINE KINASE 96 U/L (29-168); CREATININE SERUM 0.76 MG/DL (0.60-1.30); GFR ESTIMATED > 60; GLUCOSE 122 MG/DL (70-105); LIPASE 22 U/L (8-78); MAGNESIUM 1.9 MG/DL (1.6-2.4); POTASSIUM 4.5 MMOL/L (3.6-5.0); SODIUM 139 MMOL/L (135-145); TOTAL PROTEIN 7.3 GM/DL (6.4-8.2)
--- NOTE | 2019-05-01 05:27 | ED Chest Pain ---
General Chief Complaint: Chest Pain Stated Complaint: CHEST PAIN,RT & LFT SHOULDER BLADE DEA,FINGER NUMB Nursing Triage Note: Pt ambulates to to RM 10 with c/o left chest pain that radiates to left shoulder x 1 hr. Pt states she was charting and felt the onset of symptoms. Pt does not have any swelling present, no c/o SOB. Pt denies taking any ASA or NTG prior to arrival. 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 AND CHARTING, WHEN SHE BEGAN HAVING LEFT CHEST PAIN, RADIATING TO HER LEFT SHOULDER PAIN BEGAN AN HOUR AGO, AND IS STILL PRESENT RATES PAIN 8/10 AT WORST, AND RATES 6/10 NOW PT STATES SHE HAD SOME FLUTTERING WITH THE PAIN WELL--STATES IT MADE HER FEEL LIKE SHE NEEDED TO COUGH, WHICH SHE DID AND THE FLUTTERING STOPPED WAS SHORT OF BREATH WITH THE FLUTTERING HAS HAD A FEW EPISODES OF FLUTTERING IN THE PAST, BUT DID NOT SEEK CARE NO HISTORY OF CHEST PAIN OR CARDIAC PROBLEMS NO NAUSEA/VOMITING NO SWEATS NO SWELLING IN LEGS/ FEET OR PAIN IN CALVES NO DIZZINESS NO SYNCOPE C/O MUCH FATIGUE TONIGHT--STATES SHE SLEPT FINE TODAY--OVER 8 HOURS, PT STATES "SO I SHOULDN'T BE TIRED" NO FEVER, COUGH OR RECENT ILLNESS PCP : DR. BAIN Allergies and Home Medications Allergies Coded Allergies: Sulfa (Sulfonamide Antibiotics) (Verified Allergy, Severe, RASH IN MOUTH, 05/17/16) fentanyl (Verified Allergy, Intermediate, NAUSEA, 11/18/17) FEEL BAD hydrocodone (Verified Allergy, Intermediate, GI UPSET, 05/17/16) meperidine (Verified Allergy, Intermediate, GI UPSET, 05/17/16) Home Medications Canagliflozin 100 Mg Tablet, 100 MG PO DAILY, (Reported) Diclofenac Sodium 75 Mg Tablet., 75 MG PO HS, (Reported) Glimepiride 4 Mg Tablet, 4 MG PO BID, (Reported) Levothyroxine Sodium 175 Mcg Tablet, 175 MCG PO DAILY, (Reported) Mv-Mn/Folic Acid/Calcium/Vit K 1 Each Tablet, 1 EACH PO DAILY, (Reported) Pantoprazole Sodium 40 Mg Tablet.dr, 40 MG PO DAILY, (Reported) Sitagliptin Phosphate 100 Mg Tablet, 100 MG PO DAILY, (Reported) Tramadol HCl 50 Mg Tablet, 50 MG PO BID PRN for PAIN-MODERATE, (Reported) Trazodone HCl 50 Mg Tablet, 50 MG PO HS, (Reported) Patient Home Medication List Home Medication List Reviewed: Yes Review of Systems Review of Systems Constitutional: see HPI; No chills, No diaphoresis, No dizziness, No fever; malaise Respiratory: See HPI, Shortness of Air Cardiovascular: See HPI, Chest Pain; Denies Edema; Irregular Heart Rate; Denies Lightheadedness; Palpitations; Denies Syncope Gastrointestinal: No Symptoms Reported; Denies Abdominal Pain, Denies Nausea, Denies Vomiting Genitourinary: No Symptoms Reported Musculoskeletal: no symptoms reported Skin: no symptoms reported Psychiatric/Neurological: No Symptoms Reported Endocrine: No Symptoms Reported Hematologic/Lymphatic: No Symptoms Reported Past Pwjexjz-Aijfyb-Rpyqxw Hx Past Med/Social Hx: Reviewed and Corrections made Patient Social History Alcohol Use: Rarely Uses Number of Drinks Today: II Alcohol Beverage of Choice: Other Recreational Drug Use: No Smoking Status: Former Smoker (1 PPD, QUIT 2012) Type Used: Cigarettes Former Smoker, Quit: Nov 16, 2012 Recent Foreign Travel: No Contact w/Someone Who Travel: No Recent Infectious Disease Expo: No Recent Hopitalizations: No Physical Abuse: No Sexual Abuse: No Mistreated: No Fear: No Immunizations Up To Date Tetanus Booster (TDap): Unknown Date of Influenza Vaccine: Nov 10, 2015 Seasonal Allergies Seasonal Allergies: No Past Medical History Surgeries: Yes (ORAL SURGERY FOR JAW FX; L KNEE SCOPE; HYST/OVARIES INTACT) Gallbladder, Hysterectomy, Orthopedic, Tonsillectomy, 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 Respiratory: Yes Sleep Apnea Currently Using CPAP: Yes Cardiac: Yes (TACHYCARDIA) High Cholesterol, Palpitations Neurological: No Reproductive Disorders: No JAVA J2EE LEAD History: Hysterectomy, Menopausal Sexually Transmitted Disease: No HIV/AIDS: No Genitourinary: Yes Bladder Infection, UTI-Chronic Gastrointestinal: Yes (HX ILEUS/SBO--NO SURGERY) Gastroesophageal Reflux, Chronic Constipation, Diverticulosis, Polyps Musculoskeletal: Yes ("MUSCLE PAIN ALL OVER" ; CHRONIC KNEE AND BACK PAIN) Degenerate Disk Disease, Arthritis, Fibromyalgia, Chronic Back Pain Endocrine: Yes (OBESITY) Hypothyroidsim, Diabetes, Non-Insulin dep HEENT: No Loss of Vision: Bilateral Hearing Impairment: Denies Cancer: No Psychosocial: Yes Depression Integumentary: Yes (RASH/ACNE UNDER ARMS AND BREAST) Blood Disorders: No Adverse Reaction/Blood Tranf: No Family Medical History Alcoholism 09 BROTHER, Onset:Unknown Cancer 03 FATHER, Onset:Unknown 09 BROTHER, Onset:Unknown Cataract 03 MOTHER, Onset:Unknown Congestive heart failure 03 MOTHER, Onset:Unknown Family history: Diabetes mellitus 03 FATHER, Onset:Unknown 03 MOTHER, Onset:Unknown Family history: Thyroid disorder 03 MOTHER, Onset:Unknown Heart disease 03 FATHER, Onset:Unknown History of drug abuse 09 BROTHER, Onset:Unknown Cancer, CAD Over 55 Years Old, Diabetes Physical Exam Vital Signs Vital Signs - First Documented 05/01/19 04:50 Temp 36.5 Pulse 76 Resp 16 B/P (MAP) 140/77 (98) Pulse Ox 96 O2 Delivery Room Air Capillary Refill : Less Than 3 Seconds Height, Weight, BMI Height: 5'6.00" Weight: 299lbs. 3.0oz. 135.087379me; 47.00 BMI Method:Stated General Appearance: No Apparent Distress, Obese (MORBIDLY) Neck: Full Range of Motion, Normal Inspection, Non Tender, Supple Respiratory: Chest Non Tender, Normal Breath Sounds, No Accessory Muscle Use, No Respiratory Distress Cardiovascular: Regular Rate, Rhythm, No Edema, No JVD, No Murmur, Normal Peripheral Pulses Gastrointestinal: Non Tender, Soft Extremity: Normal Inspection, No Pedal Edema Neurologic/Psychiatric: Alert, Oriented x3, No Motor/Sensory Deficits, Normal Mood/Affect, energy economist II-XII Norm as Tested Skin: Normal Color, Warm/Dry Progress/Results/Core Measures Results/Orders Lab Results Laboratory Tests Test 05/01/19 04:53 Range/Units White Blood Count 7.3 4.3-11.0 10^3/uL Red Blood Count 4.44 4.35-5.85 10^6/uL Hemoglobin 14.4 11.5-16.0 G/DL Hematocrit 43 35-52 % Mean Corpuscular Volume 97 80-99 FL Mean Corpuscular Hemoglobin 32 25-34 PG Mean Corpuscular Hemoglobin Concent 33 32-36 G/DL Red Cell Distribution Width 12.2 10.0-14.5 % Platelet Count 184 130-400 10^3/uL Mean Platelet Volume 10.8 H 7.4-10.4 FL Neutrophils (%) (Auto) 49 42-75 % Lymphocytes (%) (Auto) 41 12-44 % Monocytes (%) (Auto) 9 0-12 % Eosinophils (%) (Auto) 2 0-10 % Basophils (%) (Auto) 0 0-10 % Neutrophils # (Auto) 3.6 1.8-7.8 X 10^3 Lymphocytes # (Auto) 3.0 1.0-4.0 X 10^3 Monocytes # (Auto) 0.6 0.0-1.0 X 10^3 Eosinophils # (Auto) 0.1 0.0-0.3 10^3/uL Basophils # (Auto) 0.0 0.0-0.1 10^3/uL Prothrombin Time 14.8 H 12.2-14.7 SEC INR Comment 1.1 0.8-1.4 Activated Partial Thromboplast Time 32 24-35 SEC Sodium Level 139 135-145 MMOL/L Potassium Level 4.5 3.6-5.0 MMOL/L Chloride Level 107 98-107 MMOL/L Carbon Dioxide Level 21 21-32 MMOL/L Anion Gap 11 5-14 MMOL/L Blood Urea Nitrogen 20 H 7-18 MG/DL Creatinine 0.76 0.60-1.30 MG/DL Estimat Glomerular Filtration Rate > 60 BUN/Creatinine Ratio 26 Glucose Level 122 H 70-105 MG/DL Calcium Level 9.3 8.5-10.1 MG/DL Corrected Calcium 9.1 8.5-10.1 MG/DL Magnesium Level 1.9 1.6-2.4 MG/DL Total Bilirubin 0.4 0.1-1.0 MG/DL Aspartate Amino Transf (AST/SGOT) 27 5-34 U/L Alanine Aminotransferase (ALT/SGPT) 26 0-55 U/L Alkaline Phosphatase 94 40-136 U/L Total Creatine Kinase 96 29-168 U/L Creatine Kinase MB 1.8 <6.6 NG/ML Myoglobin 37.4 10.0-92.0 NG/ML Troponin I < 0.028 <0.028 NG/ML B-Type Natriuretic Peptide 31.1 <100.0 PG/ML Total Protein 7.3 6.4-8.2 GM/DL Albumin 4.2 3.2-4.5 GM/DL Amylase Level 31 25-125 U/L Lipase 22 8-78 U/L My Orders Orders - ADDIS SIM DO Cbc With Automated Diff (05/01/19 04:46) Magnesium (05/01/19 04:46) Chest 1 View, Ap/Pa Only (05/01/19 04:46) Ekg Tracing (05/01/19 04:46) Comprehensive Metabolic Panel (05/01/19 04:46) Myoglobin Serum (05/01/19 04:46) Protime With Inr (05/01/19 04:46) Partial Thromboplastin Time (05/01/19 04:46) O2 (05/01/19 04:46) Monitor-Rhythm Ecg Trace Only (05/01/19 04:46) Lipid Panel (05/02/19 06:00) Ed Iv/Invasive Line Start (05/01/19 04:46) Creatine Kinase (05/01/19 04:46) Creatine Kinase Mb (05/01/19 04:46) Lipase (05/01/19 04:46) Amylase (05/01/19 04:46) BNP (05/01/19 04:46) Nitroglycerin 0.4 Mg Btl 25's (Nitrostat (05/01/19 05:00) Aspirin Chewable Tablet (Baby Aspirin Ch (05/01/19 05:00) Troponin I (05/01/19 04:53) Medications Given in ED Current Medications Medications Dose Ordered Sig/Donell Route Start Time Stop Time Status Last Admin Dose Admin Aspirin 324 mg ONCE ONCE PO 05/01/19 05:00 05/01/19 05:01 DC 05/01/19 04:57 324 MG Nitroglycerin 0.4 mg UD PRN SL 05/01/19 05:00 05/01/19 05:25 0.4 MG Vital Signs/I&O 05/01/19 05/01/19 05/01/19 04:50 05:00 05:05 Temp 36.5 Pulse 76 Resp 16 B/P (MAP) 140/77 (98) Pulse Ox 96 94 O2 Delivery Room Air Room Air Room Air Blood Pressure Mean: 98 Progress Progress Note : Progress Note GIVEN ASPIRIN AND NTG X 2 WITH COMPLETE RELIEF OF CHEST PAIN UNEVENTFUL ER STAY NO COMPLAINTS FOR REMAINDER OF ER STAY Initial ECG Impression Date: May 01, 2019 Initial ECG Impression Time: 04:52 Initial ECG Rate: 72 Initial ECG Rhythm: Normal Sinus Initial ECG Impression: Nonspecific Changes (LOW VOLTAGE) Diagnostic Imaging Comments CXR--NO ACUTE PROCESS, PENDING RADIOLOGIST REVIEW Reviewed: Reviewed by Me Departure Communication (Admissions) [id number]--SPOKE WITH DR. BAIN, ACCEPTS PT FOR ADMIT. WILL CONSULT CARDIOLOGY ON ADMIT Impression Primary Impression: Chest pain Disposition: ADMITTED INPATIENT Condition: Improved Admissions Decision to Admit Reason: Admit from ER (General) Decision to Admit/Date: May 01, 2019 Time/Decision to Admit Time: 06:00 Departure-Patient Inst. Referrals: BETH BAIN DO (PCP/Family) Primary Care Physician ADDIS SIM DO May 01, 2019 05:27
--- NOTE | 2019-05-01 05:48 | Diagnostic Imaging Report ---
INDICATION: Chest pain. TECHNIQUE: Single view chest 5:16 AM. CORRELATION STUDY: 11/16/2017 FINDINGS: Heart size and mediastinum are within normal limits. Vasculature slightly prominent without evidence of overt failure. Slight crowding at the lung bases. No definitive infiltrate. IMPRESSION: 1. Negative for acute abnormality of the chest. Dictated by: Dictated on workstation # [id number]
[2019-05-01] MEDS ORDERED: morphine INJ 4 MG/ML 1 ML (VIAL/SYRINGE) IV PRN (07:45)
[2019-05-01] MEDS ORDERED: CATHETER FLUSH 10 ML SYR IV PRN (07:45)
[2019-05-01] MEDS ORDERED: NITROGLYCERIN 0.4 MG SL TABS BTL 25'S SL PRN (07:45)
[2019-05-01] MEDS ORDERED: ONDANSETRON 4 MG/2 ML (SDV) Z0FRAN IV PRN (07:45)
[2019-05-01 08:00] VITALS: BP 116/78
--- NOTE | 2019-05-01 08:32 | History & Physical ---
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 Patient had a fluttering of the heart and cough and went away. Patient's chest pain on the left side and went up to the left shoulder and down to the left arm. Patient came out to the emergency room. Patient received 2 nitroglycerin and chest pain went away. Past history patient had fluttering the previous night with short period of time which went away with cough. Family history mother and father diabetic. Both parents had heart disease and acute MIs. Patient is a known diabetic Date of Admission May 01, 2019 at 06:00 Time Seen by a Provider: 08:16 I consulted on this patient on 05/01/19 08:16 Attending Physician Morgan Bird DO Admitting Physician Morgan Bird DO Consult Allergies and Home Medications Allergies Coded Allergies: Sulfa (Sulfonamide Antibiotics) (Verified Allergy, Severe, RASH IN MOUTH, 05/17/16) fentanyl (Verified Allergy, Intermediate, NAUSEA, 11/18/17) FEEL BAD hydrocodone (Verified Allergy, Intermediate, GI UPSET, 05/17/16) meperidine (Verified Allergy, Intermediate, GI UPSET, 05/17/16) Home Medications Canagliflozin 100 Mg Tablet, 100 MG PO DAILY, (Reported) Diclofenac Sodium 75 Mg Tablet.dr, 75 MG PO HS, (Reported) Glimepiride 4 Mg Tablet, 4 MG PO BID, (Reported) Levothyroxine Sodium 175 Mcg Tablet, 175 MCG PO DAILY, (Reported) Mv-Mn/Folic Acid/Calcium/Vit K 1 Each Tablet, 1 EACH PO DAILY, (Reported) Pantoprazole Sodium 40 Mg Tablet.dr, 40 MG PO DAILY, (Reported) Sitagliptin Phosphate 100 Mg Tablet, 100 MG PO DAILY, (Reported) Tramadol HCl 50 Mg Tablet, 50 MG PO BID PRN for PAIN-MODERATE, (Reported) Trazodone HCl 50 Mg Tablet, 50 MG PO HS, (Reported) Patient Home Medication List Home Medication List Reviewed: No Past Hvuwvot-Netskl-Dolgqz Hx Past Med/Social Hx: Reviewed Nursing Past Med/Soc Hx, Reviewed and Corrections made Patient Social History Employed/Student: employed Alcohol Use: Rarely Uses Number of Drinks Today: II Alcohol Beverage of Choice: Other Recreational Drug Use: No Smoking Status: Former Smoker (1 PPD, QUIT 2012) Former Smoker, Quit: Nov 16, 2012 Type Used: Cigarettes Recent Foreign Travel: No Contact w/other who traveled: No Recent Hopitalizations: No Recent Infectious Disease Expo: No Immunizations Up To Date Tetanus Booster (TDap): Unknown Date of Influenza Vaccine: Nov 10, 2015 Seasonal Allergies Seasonal Allergies: No Past Medical History Surgeries: Gallbladder, Hysterectomy, Orthopedic, Tonsillectomy, 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 Currently Using CPAP: Yes Cardiac: High Cholesterol, Palpitations Reproductive: No Sexually Transmitted Disease: No HIV/AIDS: No Hysterectomy, Menopausal Genitourinary: Bladder Infection, UTI-Chronic Gastrointestinal: Gastroesophageal Reflux, Chronic Constipation, Diverticul osis, Polyps Musculoskeletal: Degenerate Disk Disease, Arthritis, Fibromyalgia, Chronic Back Pain Endocrine: Hypothyroidsim, Diabetes, Non-Insulin dep Loss of Vision: Bilateral Hearing Impairment: Denies Psychosocial: Depression History of Blood Disorders: No Adverse Reaction to Blood Park: No Family History Alcoholism 09 BROTHER, Onset:Unknown Cancer 03 FATHER, Onset:Unknown 09 BROTHER, Onset:Unknown Cataract 03 MOTHER, Onset:Unknown Congestive heart failure 03 MOTHER, Onset:Unknown Family history: Diabetes mellitus 03 FATHER, Onset:Unknown 03 MOTHER, Onset:Unknown Family history: Thyroid disorder 03 MOTHER, Onset:Unknown Heart disease 03 FATHER, Onset:Unknown History of drug abuse 09 BROTHER, Onset:Unknown Cancer, CAD Over 55 Years Old, Diabetes Review of Systems Constitutional: no symptoms reported EENTM: no symptoms reported Respiratory: no symptoms reported Cardiovascular: chest pain, other (Pain in left shoulder going down left arm relieved by nitroglycerin) Gastrointestinal: no symptoms reported Genitourinary: no symptoms reported : No Physical Exam Vital Signs Vital Signs - First Documented 05/01/19 05/01/19 04:50 07:20 Temp 36.5 Pulse 76 Resp 16 B/P (MAP) 140/77 (98) Pulse Ox 96 O2 Delivery Room Air O2 Flow Rate 2.00 Capillary Refill : Less Than 3 Seconds Height, Weight, BMI Height: 5'6.00" Weight: 299lbs. 3.0oz. 135.708006yd; 47.00 BMI Method:Stated General Appearance: No Apparent Distress, WD/WN Eyes: Bilateral Eye Normal Inspection HEENT: Normal ENT Inspection Neck: Full Range of Motion, Normal Inspection, Non Tender, Supple Respiratory: Lungs Clear, No Accessory Muscle Use, No Respiratory Distress Cardiovascular: Regular Rate, Rhythm, No Murmur Gastrointestinal: Non Tender, Soft Assessment/Plan Assessment and Plan Chest pain relieved by nitroglycerin. Diabetes Hyperlipidemia Admission Diagnosis Admission Status: Observation Clinical Quality Measures AMI/AHF: ASA po Prior to arrival: MORGAN Durbin DO May 01, 2019 08:32
--- NOTE | 2019-05-01 08:57 | Consultation-Cardiology ---
HPI-Cardiology Cardiology Consultation Date of Consultation 05/01/19 Date of Admission Time Seen by Provider: 08:54 Indication: chest pain HPI 58-year-old lady with history of diabetes mellitus, has been in her usual state of health, started to have chest pain yesterday described as dull in nature in the left side of her chest and retrosternal area radiating to back and left arm and associated with numbness in the left arm, continue to wax and wane, came into the emergency room, reporting significant improvement in her chest pain but still having some mild chest discomfort. No palpitation. No syncope or near syncopal episodes. No claudications Home Medications & Allergies Allergies: Coded Allergies: Sulfa (Sulfonamide Antibiotics) (Verified Allergy, Severe, RASH IN MOUTH, 05/17/16) fentanyl (Verified Allergy, Intermediate, NAUSEA, 11/18/17) FEEL BAD hydrocodone (Verified Allergy, Intermediate, GI UPSET, 05/17/16) meperidine (Verified Allergy, Intermediate, GI UPSET, 05/17/16) Home Medication List Reviewed: Yes OOF-Qefqdi-Eltkdt Hx Patient Social History Marital Status: Employed/Student: employed Alcohol Use: Rarely Uses Recreational Drug Use: No Smoking Status: Former Smoker (1 PPD, QUIT 2012) Type Used: Cigarettes Recent Foreign Travel: No Recent Infectious Disease Expo: No Recent Hopitalizations: No Immunizations Up To Date Tetanus Booster (TDap): Unknown Date of Influenza Vaccine: Nov 10, 2015 Past Medical History discussed below Family Medical History Significant Family History: Cancer, CAD Over 55 Years Old, Diabetes Family History: Alcoholism 09 BROTHER, Onset:Unknown Cancer 03 FATHER, Onset:Unknown 09 BROTHER, Onset:Unknown Cataract 03 MOTHER, Onset:Unknown Congestive heart failure 03 MOTHER, Onset:Unknown Family history: Diabetes mellitus 03 FATHER, Onset:Unknown 03 MOTHER, Onset:Unknown Family history: Thyroid disorder 03 MOTHER, Onset:Unknown Heart disease 03 FATHER, Onset:Unknown History of drug abuse 09 BROTHER, Onset:Unknown Review of Systems-General Review of Systems Constitutional: no symptoms reported, see HPI EENTM: see HPI, no symptoms reported Respiratory: no symptoms reported, see HPI Cardiovascular: see HPI, chest pain; No edema, No Hx of Intervention, No palpitations, No syncope, No vascular heart diseas; other (Pain in left shoulder going down left arm relieved by nitroglycerin) Gastrointestinal: no symptoms reported, see HPI Genitourinary: no symptoms reported, see HPI : No Musculoskeletal: see HPI, back pain, joint pain Skin: no symptoms reported, see HPI Psychiatric/Neurological: No Symptoms Reported, See HPI Reviewed Test Results Reviewed Test Results Lab Laboratory Tests Test 05/01/19 04:53 05/01/19 08:05 Range/Units White Blood Count 7.3 4.3-11.0 10^3/uL Red Blood Count 4.44 4.35-5.85 10^6/uL Hemoglobin 14.4 11.5-16.0 G/DL Hematocrit 43 35-52 % Mean Corpuscular Volume 97 80-99 FL Mean Corpuscular Hemoglobin 32 25-34 PG Mean Corpuscular Hemoglobin Concent 33 32-36 G/DL Red Cell Distribution Width 12.2 10.0-14.5 % Platelet Count 184 130-400 10^3/uL Mean Platelet Volume 10.8 H 7.4-10.4 FL Neutrophils (%) (Auto) 49 42-75 % Lymphocytes (%) (Auto) 41 12-44 % Monocytes (%) (Auto) 9 0-12 % Eosinophils (%) (Auto) 2 0-10 % Basophils (%) (Auto) 0 0-10 % Neutrophils # (Auto) 3.6 1.8-7.8 X 10^3 Lymphocytes # (Auto) 3.0 1.0-4.0 X 10^3 Monocytes # (Auto) 0.6 0.0-1.0 X 10^3 Eosinophils # (Auto) 0.1 0.0-0.3 10^3/uL Basophils # (Auto) 0.0 0.0-0.1 10^3/uL Prothrombin Time 14.8 H 12.2-14.7 SEC INR Comment 1.1 0.8-1.4 Activated Partial Thromboplast Time 32 24-35 SEC Sodium Level 139 135-145 MMOL/L Potassium Level 4.5 3.6-5.0 MMOL/L Chloride Level 107 98-107 MMOL/L Carbon Dioxide Level 21 21-32 MMOL/L Anion Gap 11 5-14 MMOL/L Blood Urea Nitrogen 20 H 7-18 MG/DL Creatinine 0.76 0.60-1.30 MG/DL Estimat Glomerular Filtration Rate > 60 BUN/Creatinine Ratio 26 Glucose Level 122 H 70-105 MG/DL Calcium Level 9.3 8.5-10.1 MG/DL Corrected Calcium 9.1 8.5-10.1 MG/DL Magnesium Level 1.9 1.6-2.4 MG/DL Total Bilirubin 0.4 0.1-1.0 MG/DL Aspartate Amino Transf (AST/SGOT) 27 5-34 U/L Alanine Aminotransferase (ALT/SGPT) 26 0-55 U/L Alkaline Phosphatase 94 40-136 U/L Total Creatine Kinase 96 29-168 U/L Creatine Kinase MB 1.8 <6.6 NG/ML Myoglobin 37.4 10.0-92.0 NG/ML Troponin I < 0.028 < 0.028 <0.028 NG/ML B-Type Natriuretic Peptide 31.1 <100.0 PG/ML Total Protein 7.3 6.4-8.2 GM/DL Albumin 4.2 3.2-4.5 GM/DL Amylase Level 31 25-125 U/L Lipase 22 8-78 U/L Physical Exam Physical Exam Vital Signs Vital Signs - First Documented 05/01/19 05/01/19 04:50 07:20 Temp 36.5 Pulse 76 Resp 16 B/P (MAP) 140/77 (98) Pulse Ox 96 O2 Delivery Room Air O2 Flow Rate 2.00 Capillary Refill : Less Than 3 Seconds Height, Weight, BMI Height: 5'6.00" Weight: 299lbs. 3.0oz. 135.812374mt; 47.00 BMI Method:Stated General Appearance: No Apparent Distress, WD/WN Eyes: Bilateral Eye Normal Inspection HEENT: Normal ENT Inspection Neck: Full Range of Motion, Normal Inspection, Non Tender, Supple Respiratory: Lungs Clear, No Accessory Muscle Use, No Respiratory Distress Cardiovascular: Regular Rate, Rhythm, No Murmur Gastrointestinal: Non Tender, Soft Back: Normal Inspection, No CVA Tenderness, No Vertebral Tenderness Extremity: Normal Inspection, No Pedal Edema Neurologic/Psychiatric: Alert, Oriented x3, No Motor/Sensory Deficits, Normal Mood/Affect, systems lead II-XII Norm as Tested Skin: Normal Color, Warm/Dry Lymphatic: No Adenopathy A/P-Cardiology Admission Diagnosis chest pain Coronary artery disease Diabetes mellitus Hypotension Assessment/Plan chest pain, active pain, cardiac enzymes and EKG are normal, discussed with her the management plan, cannot undergo stress test due to the active chest pain. Has multiple risk factors, planning to proceed with cardiac catheterization possible PTCA. Borderline hypotension, monitor blood pressure Diabetes mellitus, managed by primary care physician BMI 47, discussed weight loss Clinical Quality Measures AMI/AHF: ASA po Prior to arrival: PEDRO Babb MD May 01, 2019 08:57
--- NOTE | 2019-05-01 08:58 | Cardiac Procedure Note-CS/ASA ---
Pre-Procedure Note Pre-Op Procedure Note H&P Reviewed The H&P was reviewed, patient examined and no changes noted. Date H&P Reviewed: May 01, 2019 Time H&P Reviewed: 08:58 Conscious Sedation Pre-Proced Time 08:58 ASA Score 3 For ASA 3 and 4: Consider anesthesia and medical clearance. Also, for patients with a history of failed moderate sedation consider anesthesia. Airway Lungs Heart ASA score ASA 1: a normal healthy patient ASA 2: a patient with a mild systemic disease (mid diabetes, controlled hypertension, obesity x ASA 3: a patient with a severe systemic disease that limits activity (angina, COPD, prior Myocardial infarction) ASA 4: a patient with an incapacitating disease that is a constant threat to life (CHF, renal failure) ASA 5: a moribund patient not expected to survive 24 hrs. (ruptured aneurysm) ASA 6: a declared brain- patient whose organs are being harvested. For emergent operations, add the letter E after the classification Mallampati Classification Grade 3 Sedation Plan Analgesia, Amnesia, Plan communicated to team members, Discussed options with patient/fam, Discussed risks with patient/fam The patient is an appropriate candidate to undergo the planned procedure, sedation, and anesthesia. The patient immediately re-assessed prior to indication. PEDRO HAWKINS MD May 01, 2019 08:58
[2019-05-01] MEDS ORDERED: NS IV 1000 ML 1,000 ML IV SCH ×2 (09:00→11:07)
--- NOTE | 2019-05-01 10:29 | NUR ---
1020 PT TO [facility]ART [facility] VIA BED ACCOMPANIED BY HEART CENTER STAFF AND FRIEND.
[2019-05-01] MEDS ORDERED: LIDOCAINE 1% INJ 20 ML 20 ML VIAL ONE (10:55)
[2019-05-01] MEDS ORDERED: MIDAZOLAM 5 MG/5 ML (VERSED) VIAL ONE (10:56)
[2019-05-01] MEDS ORDERED: NITRO DRIP 25000 MCG/D5W 250 ML IV ONE (10:56)
[2019-05-01] MEDS ORDERED: VERAPAMIL 5 MG/2 ML (CALAN) VIAL IV ONE (10:56)
[2019-05-01] MEDS ORDERED: NS IV 1000 ML 1,000 ML ONE (10:56)
[2019-05-01] MEDS ORDERED: HEParin 1000 UNIT/ML (10ML VIAL) FOR BOLUS ONE (10:56)
[2019-05-01] MEDS ORDERED: HEParin (CATH LAB) 2,000 ML IV ONE (10:56)
[2019-05-01] MEDS ORDERED: fentaNYL INJECTION 100 MCG/2 ML AMP ONE (10:56)
[2019-05-01] MEDS ORDERED: inSUlin ASPART (NovoLOG) 1 UNIT/0.01 ML (CHARGE PER UNIT) SC SCH (11:00)
--- NOTE | 2019-05-01 11:09 | Discharge Inst-Post CATH ---
Discharge Inst-CATH/EP Problems Reviewed?: Yes Post Cardiac Cath/EP D/C Inst Follow Up/Plan Appointment with Dr. HAWKINS's office in one month <b>CARDIAC CATH/EP PROCEDURE DISCHARGE INSTRUCTIONS</b> ACTIVITY * Go Home directly and rest. * Limit activity of the leg (or wrist if it was used) for 7 days including aerobics, swimming, jogging, bicycling, etc. * Restrict stair-climbing for 7 days if possible, if not, climb up with your non-cath leg, then bring together on the same step. * Avoid lifting, pushing, pulling or excessive movement of the affected extremity for 7 days. * Customary sexual activity may be resumed after 2 days-use caution not to use a position that strains or causes pain to the affected extremity. * No driving for 24 hours. * NO SMOKING. * Avoid straining for bowel movements for 7 days. * Gentle walking on level ground is allowed. * Returning to work will depend on the type of procedure and the results. Your doctor will discuss this with you. CALL YOUR DOCTOR FOR ANY OF THE FOLLOWING: *If bleeding from the puncture site occurs- Apply gentle pressure to site with clean cloth and call your doctor or EMS. * If a knot or lump forms under the skin, increases in size, or causes pain. * If bruising appears to be worsening or moving further down your leg instead of disappearing. * Temperature above 101 F. CARE OF YOUR GROIN INCISION; * Bruising or purple discoloration of the skin near the puncture site is common. * You may shower only, no bathtub bathing for 5 days. Be careful to avoid slipping as your leg may feel stiff. * If a closure device was used on your femoral artery, please see the attached guide regarding care of the device and your leg. * Leave dressing on FOR 24 hours. CARE OF YOUR WRIST INCISION; * Bruising or purple discoloration of the skin near the puncture site is common. * You may shower. * DO NOT submerge wrist. * Leave dressing on FOR 24 hours. PEDRO HAWKINS MD May 01, 2019 11:09
--- NOTE | 2019-05-01 11:16 | Cardiac Cath Report ---
Cardiac Cath Report Physician (s)/Heel Sorter (s) Physician PEDRO HAWKINS MD Pre-Procedure Diagnosis Pre-Procedure Diagnosis: Chest pain Post-Procedure Note Procedure Start Date: May 01, 2019 Name of Procedure: Left heart catheterization Left ventricular gram Aortic arch angiogram Findings/Procedure Note PROCEDURE NOTE: 58-year-old lady with history of diabetes mellitus, BMI 47, admitted with chest pain, continue to have active chest pain, decided to proceed with cardiac catheterization due to the fact that she is having active chest pain. After explaining the procedure to the patient, all pros and cons were explained, all questions were answered. The patient signed the consent and then she was placed on the cardiac catheterization laboratory. Groin was prepped SL fashion local anesthesia was used. Sheath placed in the right radial artery, Dowell catheter was used advanced to the left ventricular cavity, left ventriculogram was done, intubated the coronary system, coronary and gram was done and aortic arch angiogram was done At the end of the procedure the sheath was removed. Vascular band was used FINDINGS: Hemodynamics LV 97/19, end-diastolic pressure of 19 Aorta 94/60, mean of 77 ANATOMY: Left Main is free of obstructive disease Left Anterior Descending has mild disease nonobstructive disease Left Circumflex is dominant with mild disease nonobstructive disease Right Coronory Artery is small nondominant with no obstructive disease LV Gram was done showing normal left ventricular size with normal contractility estimated ejection fraction 60 percent Aorta evaluation done with aortic arch angiogram showing normal aortic arch, no dissection or aneurysm, normal origin of the innominate artery, left subclavian left carotid arteries CONCLUSION: 1. Mild coronary artery disease no significant obstructive disease 2. Normal left ventricular size and systolic function estimated ejection fraction 60 percent 3. Normal aortic arch and great vessels of the neck DISCUSSION AND RECOMMENDATION: Patient continued to have recurrent chest pain, unlikely to be cardiac, her c hest x-ray is normal. She was continued on omeprazole. Anesthesia Type: Conscious Sedation Estimated blood loss (mL): 5 ml Contrast Amount: 44 ml Total Radiation Dose: 332 mGy Post-Procedure Diagnosis Post-operative diagnosis: Chest pain Coronary artery disease Hypertension Diabetes mellitus PEDRO HAWKINS MD May 01, 2019 11:16
[2019-05-01 12:00] VITALS: BP 92/46
[2019-05-01] MEDS ORDERED: CATHETER FLUSH 10 ML SYR IV SCH (14:00)
[2019-05-01] MEDS ORDERED: ENOXAPARIN 40 MG/0.4 ML (LOVENOX) SYR SC SCH (14:00)
[2019-05-01 14:21] VITALS: BP 92/46
[2019-05-02] MEDS ORDERED: ASPIRIN E.C. 81 MG (ECOTRIN) TAB PO SCH (09:00)
--- OUTSIDE RECORDS SUMMARY | 2019-05-02 23:03 | XMS REPORT | Continuity of Care Document ---
Author Organization Unknown Address Unknown Phone Unavailable Allergies Active Description Code Type Severity Reaction Onset Reported/Identified Relationship to Patient Clinical Status Yes DEMEROL DEMEROL Mild VOMITING 05/30/2012 Yes hydrocodone [id number] Drug Aller gy Mild DIZZINESS, NAUS 06/06/2015 Yes Sulfa (Sulfonamide Antibiotics) [id number] Drug Allergy Mild MOUTH SORES 06/06/2015 Yes Sulfa (Sulfonamide Antibiotics) [id number] 0491 Drug Allergy Severe RASH IN MOUTH 05/17/2016 Yes hydrocodone [id number] Drug Aller gy Moderate GI UPSET 05/17/2016 Yes meperidine [id number] Drug Allerg y Moderate GI UPSET 05/17/2016 Yes fentanyl [id number] Drug Allergy Moderate NAUSEA 11/18/2017 Medications There is no data. Problems Date [...] TYPE 2 DIABETES MELLITUS WITHOUT COMPLIC 06/06/2015 SHERI LINDO MD Ot K29.70 GASTRITIS, UNSPECIFIED, WITHOUT BLEEDING 06/06/2015 [...] Ot K64.4 RESIDUAL HEMORRHOIDAL SKIN TAGS 06/09/2015 ODELL DO, BETH A Ot K76.0 FATTY (CHANGE OF) LIVER, NOT [...] OF INTEST, PART UNSP, W/O PERF 06/17/2015 BELGICA DUARTE, SHERI Bangura Ot K62.1 RECTAL POLYP 06/17/2015 BELGICA DUARTE, SHERI Bangura Ot K63.5 POLYP OF COLON 06/17/2015 BELGICA DUARTE, SHERI Bangura Ot K64.4 RESIDUAL HEMORRHOIDAL SKIN TAGS 08/17/2015 PUJA CHRISTINE PETROGRAPHY TEACHER Ot G47.33 OBSTRUCTIVE SLEEP APNEA (ADULT) (PEDIATR 11/23/2015 EMILE SINGLETONI L PETROGRAPHY TEACHER Ot R06.02 SHORTNESS OF BREATH 11/23/2015 EMILE SINGLETONI L PETROGRAPHY TEACHER Ot R07 .9 CHEST PAIN, UNSPECIFIED 11/23/2015 ARELI LEE L PETROGRAPHY TEACHER Ot R10.11 RIGHT UPPER QUADRANT PAIN 11/24/2015 BETH BAIN DO Ot 255.9 ADRENAL DISORDER N0S 11/24/2015 BETH BAIN DO Ot 571.8 CHRONIC LIVER DIS NEC 11/24/2015 BETH BAIN DO Ot 578.9 GASTROINTEST HEMORR NOS 11/24/2015 BETH BAIN DO Ot 783.1 ABNORMAL WEIGHT GAIN 11/24/2015 BETH BAIN DO Ot 789.00 ABDOMINAL PAIN, UNSPECIFIED SITE 11/24/2015 BETH BAIN DO Ot 789.30 ABDOMINAL/PELVIC SWELLING,MASS/LUMP UNSP 11/24/2015 BETH BAIN DO Ot K76.0 FATTY (CHANGE OF) LIVER, NOT ELSEWHERE C 11/24/2015 ARELI LEE L PETROGRAPHY TEACHER Ot R06.02 SHORTNESS OF BREATH 11/24/2015 ARELI LEE L PETROGRAPHY TEACHER Ot R07 .9 CHEST PAIN, UNSPECIFIED 11/24/2015 ARELI LEE L PETROGRAPHY TEACHER Ot R10.11 RIGHT UPPER QUADRANT PAIN 11/25/2015 ARELI LEE L PETROGRAPHY TEACHER Ot K76 .0 FATTY (CHANGE OF) LIVER, NOT ELSEWHERE C 11/25/2015 ARELI LEE L PETROGRAPHY TEACHER Ot R10.11 RIGHT UPPER QUADRANT PAIN 12/07/2015 ARELI LEE L PETROGRAPHY TEACHER Ot R06.02 SHORTNESS OF BREATH 12/07/2015 ARELI LEE L PETROGRAPHY TEACHER Ot R07 .9 CHEST PAIN, UNSPECIFIED 12/07/2015 SINGLETON, LEE L PETROGRAPHY TEACHER Ot R10.11 RIGHT UPPER QUADRANT PAIN 12/07/2015 LEE SINGLETON PETROGRAPHY TEACHER Ot K76 .0 FATTY (CHANGE OF) LIVER, NOT ELSEWHERE C 12/07/2015 LEE SINGLETON PETROGRAPHY TEACHER Ot R10.11 RIGHT UPPER QUADRANT PAIN 05/01/2016 MIRTHAMARTIN L PETROGRAPHY TEACHER Ot R10.11 RIGHT UPPER QUADRANT PAIN 05/06/2016 MIRTHAJESS POPEIN L PETROGRAPHY TEACHER Ot R10.11 RIGHT UPPER QUADRANT PAIN 05/16/2016 MIRTHAJESS POPEIN L PETROGRAPHY TEACHER Ot R10.11 RIGHT UPPER QUADRANT PAIN 05/17/2016 ALEJANDRINA PERRIN MD Ot K82.8 OTHER SPECIFIED DISEASES OF GALLBLADDER 05/17/2016 ALEJANDRINA PERRIN MD Ot Z01.81 8 ENCOUNTER FOR OTHER PREPROCEDURAL EXAMIN 05/17/2016 ALEJANDRINA PERRIN MD Ot Z11.2 ENCOUNTER FOR SCREENING FOR OTHER BACTER 05/18/2016 ALEJANDRINA PERRIN MD Ot K82.8 OTHER SPECIFIED DISEASES OF GALLBLADDER 05/18/2016 ALEJANDRINA PERRIN MD Ot Z01.81 8 ENCOUNTER FOR OTHER PREPROCEDURAL EXAMIN 05/18/2016 ALEJANDRINA PERRIN MD Ot Z11.2 ENCOUNTER FOR SCREENING FOR OTHER BACTER 05/24/2016 BETH BAIN DO Ot 255.9 ADRENAL DISORDER N0S 05/24/2016 BETH BAIN DO Ot 571.8 CHRONIC LIVER DIS NEC 05/24/2016 BETH BAIN DO Ot 578.9 GASTROINTEST HEMORR NOS 05/24/2016 BETH BAIN DO Ot 783.1 ABNORMAL WEIGHT GAIN 05/24/2016 BETH BAIN DO Ot 789.00 ABDOMINAL PAIN, UNSPECIFIED SITE 05/24/2016 BETH BAIN DO Ot 789.30 ABDOMINAL/PELVIC SWELLING,MASS/LUMP UNSP 05/24/2016 BETH BAIN DO Ot K76.0 FATTY (CHANGE OF) LIVER, NOT ELSEWHERE C 05/24/2016 LEE SINGLETON PETROGRAPHY TEACHER Ot R06.02 SHORTNESS OF BREATH 05/24/2016 LEE SINGLETON PETROGRAPHY TEACHER Ot R07 .9 CHEST PAIN, UNSPECIFIED 05/24/2016 LEE SINGLETON PETROGRAPHY TEACHER Ot R10.11 RIGHT UPPER QUADRANT PAIN 05/24/2016 SINGLETON, LEE L PETROGRAPHY TEACHER Ot K76 .0 FATTY (CHANGE OF) LIVER, NOT ELSEWHERE C 05/24/2016 LEE SINGLETON L PETROGRAPHY TEACHER Ot R10.11 RIGHT UPPER QUADRANT PAIN 05/24/2016 MARTIN SHANNON L PETROGRAPHY TEACHER Ot R10.11 RIGHT UPPER QUADRANT PAIN 05/24/2016 ALEJANDRINA PERRIN MD, Ot E11.9 TYPE 2 DIABETES MELLITUS WITHOUT COMPLIC 05/24/2016 ALEJANDRINA PERRIN MD Ot K81.1 CHRONIC CHOLECYSTITIS 05/24/2016 ALEJANDRINA PERRIN MD, Ot Z79.84 RETIREMENT (CURRENT) USE OF ORAL HYPOGLYC 05/30/2016 ALEJANDRINA PERRIN MD Ot E11.9 TYPE 2 DIABETES MELLITUS WITHOUT COMPLIC 05/30/2016 ALEJANDRINA PERRIN MD, Ot K81.1 CHRONIC CHOLECYSTITIS 05/30/2016 ALEJANDRINA PERRIN MD, Ot Z79.84 RETIREMENT (CURRENT) USE OF ORAL HYPOGLYC 11/11/2016 VIVEK FUNEZ Ot E03.9 HYPOTHYROIDISM, UNSPECIFIED 11/11/2016 VIVEK FUNEZ Ot F32.9 MAJOR DEPRESSIVE DISORDER, SINGLE EPISOD 11/11/2016 VIVEK FUNEZ Ot J11.1 FLU DUE TO UNIDENTIFIED INFLUENZA VIRUS 11/11/2016 VIVEK FUNEZ Ot K21.9 GASTRO-ESOPHAGEAL REFLUX DISEASE WITHOUT 11/11/2016 VIVEK FUNEZ Ot M47.9 SPONDYLOSIS, UNSPECIFIED 11/11/2016 VIVEK FUNEZ Ot R 05 COUGH 11/11/2016 VIVEK FUNEZ Ot Z87.891 PERSONAL [...] M47.9 SPONDYLOSIS, UNSPECIFIED 11/13/2016 VIVEK FUNEZ Ot R 05 COUGH 11/13/2016 VIVEK FUNEZ Ot Z87.891 PERSONAL HISTORY OF NICOTINE DEPENDENCE 11/13/2016 VIVEK FUNEZ Ot Z90.710 ACQUIRED ABSENCE OF BOTH CERVIX AND UTER 11/16/2017 BETH BAIN DO Ot 255.9 ADRENAL DISORDER N0S 11/16/2017 BETH BAIN DO Ot 571.8 CHRONIC LIVER DIS NEC 11/16/2017 ODELL GUTIÉRREZ, BETH Lee Ot 578.9 GASTROINTEST HEMORR NOS 11/16/2017 CARMELODER , BETH Jesus Ot 783.1 ABNORMAL WEIGHT GAIN 11/16/2017 ODELL GUTIÉRREZ, BETH Jesus Ot 789.00 ABDOMINAL PAIN, UNSPECIFIED SITE 11/16/2017 ODELL GUTIÉRREZ, BETH Lee Ot 789.30 ABDOMINAL/PELVIC SWELLING,MASS/LUMP UNSP 11/16/2017 ODELL GUTIÉRREZ BETH Lee Ot K76.0 FATTY (CHANGE OF) LIVER, NOT ELSEWHERE C 11/16/2017 LEE SINGLETON PETROGRAPHY TEACHER Ot R06.02 SHORTNESS OF BREATH 11/16/2017 LEE SINGLETON PETROGRAPHY TEACHER Ot R07 .9 CHEST PAIN, UNSPECIFIED 11/16/2017 ARELI LEE L PETROGRAPHY TEACHER Ot R10.11 RIGHT UPPER QUADRANT PAIN 11/16/2017 ARELI LEE L PETROGRAPHY TEACHER Ot K76 .0 FATTY (CHANGE OF) LIVER, NOT ELSEWHERE C 11/16/2017 ARELI LEE L PETROGRAPHY TEACHER Ot R10.11 RIGHT UPPER QUADRANT PAIN 11/16/2017 MARTIN SHANNON PETROGRAPHY TEACHER Ot R10.11 RIGHT UPPER QUADRANT PAIN 11/18/2017 ODELL GUTIÉRREZ BETH Jesus Ot A08.4 VIRAL INTESTINAL INFECTION, UNSPECIFIED 11/18/2017 CARMELODER BETH Ot E03.9 HYPOTHYROIDISM, UNSPECIFIED 11/18/2017 ODELL GUTIÉRREZBETH Ot E11.9 TYPE 2 DIABETES MELLITUS WITHOUT COMPLIC 11/18/2017 ODELL GUTIÉRREZBETH Ot E66.9 OBESITY, UNSPECIFIED 11/18/2017 SHERINLENDER BETH Ot E78.00 PURE HYPERCHOLESTEROLEMIA, UNSPECIFIED 11/18/2017 ODELL GUTIÉRREZBETH Ot F32.9 MAJOR DEPRESSIVE DISORDER, SINGLE EPISOD 11/18/2017 CARMELODER BETH Ot G47.30 SLEEP APNEA, UNSPECIFIED 11/18/2017 GELLENDER DO, BETH Lee Ot K21.9 GASTRO-ESOPHAGEAL REFLUX DISEASE WITHOUT 11/18/2017 GELLENDER DO, BETH Lee Ot K56.690 OTHER PARTIAL INTESTINAL OBSTRUCTION 11/18/2017 GELLENDER DO, BETH Lee Ot K57.90 DVRTCLOS OF INTEST, PART UNSP, W/O PERF 11/18/2017 GELLENDER DOBETH Ot K58.9 IRRITABLE BOWEL SYNDROME WITHOUT DIARRHE 11/18/2017 GELLENDER DO, BETH Lee Ot K59.09 OTHER CONSTIPATION 11/18/2017 GELLENDER DO, BETH Lee Ot L70.9 ACNE, UNSPECIFIED 11/18/2017 GELLENDER DOBETH Ot M19.91 PRIMARY OSTEOARTHRITIS, UNSPECIFIED SITE 11/18/2017 GELLENDER DOBETH Ot M79.7 FIBROMYALGIA 11/18/2017 GELLENDER DOBETH Ot R00.2 PALPITATIONS 11/18/2017 GELLENDER DOBETH Ot R21 RASH AND OTHER NONSPECIFIC SKIN ERUPTION 11/18/2017 GELLENDER DO, BETH Lee Ot Z68.42 BODY MASS INDEX (BMI) 45.0-49.9, ADULT 11/18/2017 GELLENDER DO, BETH Lee Ot Z79.84 RETIREMENT (CURRENT) USE OF ORAL HYPOGLYC 11/18/2017 GELLENDER DO, BETH Lee Ot Z87.440 PERSONAL HISTORY OF URINARY (TRACT) INFE 11/18/2017 GELLENDER DO, BETH Lee Ot Z87.891 PERSONAL HISTORY OF NICOTINE DEPENDENCE 11/18/2017 GELLENDER DOBETH Ot A08.4 VIRAL INTESTINAL INFECTION, UNSPECIFIED 11/18/2017 GELLENDER DOBETH Ot E03.9 HYPOTHYROIDISM, UNSPECIFIED 11/18/2017 GELLENDER DOBETH Ot E11.9 TYPE 2 DIABETES MELLITUS WITHOUT COMPLIC 11/18/2017 GELLENDER DOBETH Ot E66.9 OBESITY, UNSPECIFIED 11/18/2017 GELLENDER DOBETH Ot E78.00 PURE HYPERCHOLESTEROLEMIA, UNSPECIFIED 11/18/2017 GELLENDER DOBETH Ot F32.9 MAJOR DEPRESSIVE DISORDER, SINGLE EPISOD 11/18/2017 GELLENDER DOBETH Ot G47.30 SLEEP APNEA, UNSPECIFIED 11/18/2017 GELLENDER DOBETH Ot K21.9 GASTRO-ESOPHAGEAL REFLUX DISEASE WITHOUT 11/18/2017 GELLENDER BETH Ot K56.690 OTHER PARTIAL INTESTINAL OBSTRUCTION 11/18/2017 SHERINLENDER BETH Ot K57.90 DVRTCLOS OF INTEST, PART UNSP, W/O PERF 11/18/2017 ODELL GUTIÉRREZBETH Ot K58.9 IRRITABLE BOWEL SYNDROME WITHOUT DIARRHE 11/18/2017 SHERINLENDER BETH Ot K59.09 OTHER CONSTIPATION 11/18/2017 SHERINLENDER BETH Ot L70.9 ACNE, UNSPECIFIED 11/18/2017 SHERINLENDER BETH Ot M19.91 PRIMARY OSTEOARTHRITIS, UNSPECIFIED SITE 11/18/2017 ODELL GUTIÉRREZBETH Ot M79.7 FIBROMYALGIA 11/18/2017 ODELL GUTIÉRREZBETH Ot R00.2 PALPITATIONS 11/18/2017 ODELL GUTIÉRREZBETH Ot R21 RASH AND OTHER NONSPECIFIC SKIN ERUPTION 11/18/2017 ODELL GUTIÉRREZBETH Ot Z68.42 BODY MASS INDEX (BMI) 45.0-49.9, ADULT 11/18/2017 ODELL GUTIÉRREZBETH Ot Z79.84 RETIREMENT (CURRENT) USE OF ORAL HYPOGLYC 11/18/2017 ODELL GUTIÉRREZBETH Ot Z87.440 PERSONAL HISTORY OF URINARY (TRACT) INFE 11/18/2017 ODELL GUTIÉRREZBETH Ot Z87.891 PERSONAL HISTORY OF NICOTINE DEPENDENCE 11/17/2018 AMANDA TRIANA DO Ot Z01.8 18 ENCOUNTER FOR OTHER PREPROCEDURAL EXAMIN 11/24/2018 AMANDA TRIANA DO Ot D12.4 BENIGN NEOPLASM OF DESCENDING COLON 11/24/2018 AMANDA TRIANA DO Ot E03.9 HYPOTHYROIDISM, UNSPECIFIED 11/24/2018 AMANDA TRIANA DO Ot E11.9 TYPE 2 DIABETES MELLITUS WITHOUT COMPLIC 11/24/2018 AMANDA TRIANA DO Ot E66.0 1 MORBID (SEVERE) OBESITY DUE TO EXCESS CA 11/24/2018 AMANDA TRIANA DO Ot F32.9 MAJOR DEPRESSIVE DISORDER, SINGLE EPISOD 11/24/2018 AMANDA TRIANA DO Ot G47.3 3 OBSTRUCTIVE SLEEP APNEA (ADULT) (PEDIATR 11/24/2018 AMANDA TRIANA DO Ot K21.0 GASTRO-ESOPHAGEAL REFLUX DISEASE WITH ES 11/24/2018 AMANDA TRAINA DO Ot K29.7 0 GASTRITIS, UNSPECIFIED, WITHOUT BLEEDING 11/24/2018 AMANDA TRIANA DO Ot K31.7 POLYP OF STOMACH AND DUODENUM 11/24/2018 AMANDA TRIANA DO Ot K44.9 DIAPHRAGMATIC HERNIA WITHOUT OBSTRUCTION 11/24/2018 AMANDA TRIANA DO Ot K57.3 0 DVRTCLOS OF LG INT W/O PERFORATION OR AB 11/24/2018 AMANDA TRIANA DO Ot K62.1 RECTAL POLYP 11/24/2018 AMANDA TRIANA DO Ot K64.8 OTHER HEMORRHOIDS 11/24/2018 AMANDA TRIANA DO Ot Z68.4 2 BODY MASS INDEX (BMI) 45.0-49.9, ADULT 11/24/2018 AMANDA TRIANA DO Ot Z79.8 4 RETIREMENT (CURRENT) USE OF ORAL HYPOGLYC 11/24/2018 AMANDA TRIANA DO Ot Z79.8 91 RETIREMENT (CURRENT) USE OF OPIATE ANALGE 11/24/2018 AMANDA TRIANA DO Ot Z80.9 FAMILY HISTORY OF MALIGNANT NEOPLASM, UN 11/24/2018 AMANDA TRIANA DO Ot Z82.5 FAMILY HISTORY OF ASTHMA AND OTH CHRONIC 11/24/2018 AMANDA TRIANA DO Ot Z87.8 91 PERSONAL HISTORY OF NICOTINE DEPENDENCE 11/24/2018 AMANDA TRIANA DO Ot Z88.2 ALLERGY STATUS TO SULFONAMIDES STATUS 11/24/2018 AMANDA TRIANA DO Ot Z88.5 ALLERGY STATUS TO NARCOTIC AGENT STATUS 11/24/2018 AMANDA TRIANA DO Ot Z88.6 ALLERGY STATUS TO ANALGESIC AGENT STATUS 11/24/2018 AMANDA TRIANA DO Ot Z90.4 9 ACQUIRED ABSENCE OF OTHER SPECIFIED PART 11/24/2018 AMANDA TRIANA DO Ot Z90.7 10 ACQUIRED ABSENCE OF BOTH CERVIX AND UTER 04/10/2019 BETH BAIN DO Ot K76.0 FATTY (CHANGE OF) LIVER, NOT ELSEWHERE C 04/10/2019 LEE SINGLETON PETROGRAPHY TEACHER Ot R06.02 SHORTNESS OF BREATH 04/10/2019 LEE SINGLETON PETROGRAPHY TEACHER Ot R07 .9 CHEST PAIN, UNSPECIFIED 04/10/2019 LEE SINGLETON PETROGRAPHY TEACHER Ot R10.11 RIGHT UPPER QUADRANT PAIN 04/10/2019 LEE SINGLETON PETROGRAPHY TEACHER Ot K76 .0 FATTY (CHANGE OF) LIVER, NOT ELSEWHERE C 04/10/2019 LEE SINGLETON PETROGRAPHY TEACHER Ot R10.11 RIGHT UPPER QUADRANT PAIN 04/10/2019 MARITN SHANNON PETROGRAPHY TEACHER Ot R10.11 RIGHT UPPER QUADRANT PAIN 05/01/2019 ODELL GUTIÉRREZ BETH Jesus Ot M17.12 UNILATERAL PRIMARY OSTEOARTHRITIS, LEFT 05/01/2019 ODELL GUTIÉRREZBETH Ot M79.662 PAIN IN LEFT LOWER LEG Procedures Code Description Performed By Per formed On [id number] DR CHRISTENSEN OF STOMACH WITH DRAINAGE DEVICE 11/16/2017 Results Test Result Range Complete blood count (CBC) with automate d white blood cell (WBC) differential - 11/21/15 18:15 Blood leukocytes automated count (number/volume) 7.5 10*3/uL 4.3-11.0 Blood erythrocytes automated count (number/volume) 3.88 10*6/uL 4.35-5.85 Venous blood hemoglobin measurement (mass/volume) 12.8 g/dL 11.5-16.0 Blood hematocrit (volume fraction) 38 % 35-52 Automated erythrocyte mean corpuscular volume 98 [ foz_us] 80-99 Automated erythrocyte mean corpuscular h emoglobin (mass per erythrocyte) 33 pg 25-34 Automated erythrocyte mean corpuscular h emoglobin concentration measurement (mass/volume) 34 g/dL 32-36 Automated erythrocyte distribution width ratio 12. 1 % 10.0- 14.5 Automated blood platelet count (count/volume) 186 10*3/uL [...] 10*3 1.0-4.0 Blood monocytes automated count (number/volume) 0. 6 10*3 0.0-1.0 Automated eosinophil count 0.1 10*3/uL 0 .0-0.3 Automated blood basophil count (count/volume) 0.0 10*3/uL 0.0-0.1 Comprehensive metabolic panel - 11/21/15 18:15 Serum or plasma sodium measurement (moles/volume) 140 mmol/L 135-145 Serum or plasma potassium measurement (moles/volume) 4.0 mmol/L 3.6-5.0 Serum or plasma chloride measurement (moles/volume) 103 mmol/L 98-107 Carbon dioxide 22 mmol/L 21-32 Serum or plasma anion gap determination (moles/volume) 15 mmol/L 5-14 Serum or plasma urea nitrogen measurement (mass/volume ) 10 mg/dL 7-18 Serum or plasma creatinine measurement (mass/volume) 0.76 mg/dL 0.60-1.30 Serum or plasma urea nitrogen/creatinine mass ratio 13 NRG Serum or plasma creatinine measurement w ith calculation of estimated glomerular filtration rate > NRG Serum or plasma glucose measurement (mass/volume) 105 mg/dL 70-105 Serum or plasma calcium measurement (mass/volume) 9.3 mg/dL 8.5-10.1 Serum or plasma total bilirubin measurement (mass/volu me) 0.2 mg/dL 0.1-1.0 Serum or plasma alkaline phosphatase amelia surement (enzymatic activity/volume) 81 U/L 40-136 Serum or plasma aspartate aminotransfera se measurement (enzymatic activity/volume) 23 U/L 5-34 Serum or plasma alanine aminotransferase measurement (enzymatic activity/volume) 19 U/L 0-55 Serum or plasma protein measurement (mass/volume) 6.9 g/dL 6.4-8.2 Serum or plasma albumin measurement (mass/volume) 4.1 g/dL 3.2-4.5 Serum or plasma creatine kinase MB measu rement (enzymatic activity/volume) - 11/21/15 18:15 Serum or plasma creatine kinase MB measu rement (enzymatic activity/volume) 1.3 ng/mL <6.6 Serum or plasma troponin i.cardiac measu rement (mass/volume) - 11/21/15 18:15 Serum or plasma troponin i.cardiac measurement (mass/v olume) < ng/mL <0.30 Myoglobin, serum - 11/21/15 18:15 Myoglobin, serum 38.3 ng/mL 10.0-92.0 Serum or plasma amylase measurement (enz ymatic activity/volume) - 11/21/15 18:15 Serum or plasma amylase measurement (enzymatic activit y/volume) 30 U/L 25-125 Lipase - 11/21/15 18:15 Lipase 16 U/L 8-78 Complete blood count (CBC) with automate d white blood cell (WBC) differential - 05/17/16 09:40 Blood leukocytes automated count (number/volume) 5.8 10*3/uL 4.3-11.0 Blood erythrocytes automated count (number/volume) 4.07 10*6/uL 4.35-5.85 Venous blood hemoglobin measurement (mass/volume) 13.3 g/dL 11.5-16.0 Blood hematocrit (volume fraction) 40 % 35-52 Automated erythrocyte mean corpuscular volume 99 [ foz_us] 80-99 Automated erythrocyte mean corpuscular h emoglobin (mass per erythrocyte) 33 pg 25-34 Automated erythrocyte mean corpuscular h emoglobin concentration measurement (mass/volume) 33 g/dL 32-36 Automated erythrocyte distribution width ratio 12. 1 % 10.0- 14.5 Automated blood platelet count (count/volume) 177 10*3/uL [...] 10*3 1.0-4.0 Blood monocytes automated count (number/volume) 0. 4 10*3 0.0-1.0 Automated eosinophil count 0.1 10*3/uL 0 .0-0.3 Automated blood basophil count (count/volume) 0.0 10*3/uL 0.0-0.1 Methicillin resistant Staphylococcus aur eus (MRSA) screening culture - 05/17/16 09:40 Methicillin resistant Staphylococcus aureus (MRSA) scr eening culture NEG NRG Capillary blood glucose measurement by g lucometer (mass/volume) - 05/24/16 07:46 Capillary blood glucose measurement by glucometer (mas s/volume) 140 mg/dL 70-110 Influenza virus A and B antigen detectio n - 11/11/16 20:20 FLU RESULT NEGATIVE FOR INFLUENZA A AND B ANTIGENS BY IA NRG Complete urinalysis with reflex to cultu re - 11/16/17 04:31 Urine color determination CARTER NRG Urine clarity determination VERY CLOUDY NRG Urine pH measurement by test strip 5 5-9 Specific gravity of urine by test strip 1.025 1.016-1.022 Urine protein assay by test strip, semi-quantitative 1+ NEGATIVE Urine glucose detection by automated test strip 2+ NEGATIVE Erythrocytes detection in urine sediment by light micr oscopy 1+ NEGATIVE Urine ketones detection by automated test strip NE GATIVE NEGATIVE Urine nitrite detection by test strip NEGATIVE NEGATIVE Urine total bilirubin detection by test strip NEGA TIVE NEGATIVE Urine urobilinogen measurement by automated test strip (mass/volume) NORMAL NORMAL Urine leukocyte esterase detection by dipstick 3+ NEGATIVE Automated urine sediment erythrocyte cou nt by microscopy (number/high power field) RARE NRG Automated urine sediment leukocyte count by microscopy (number/high power field) [HPF] NRG Bacteria detection in urine sediment by light microsco py FEW NRG Squamous epithelial cells detection in u rine sediment by light microscopy 10-25 NRG Crystals detection in urine sediment by light microsco py NONE NRG Casts detection in urine sediment by light microscopy NONE NRG Mucus detection in urine sediment by light microscopy NEGATIVE NRG Complete urinalysis with reflex to culture YES NRG Bacterial urine culture - 11/16/17 04:31 Bacterial urine culture SEE REPORT NRG COLONY COUNT . NRG Complete blood count (CBC) with automate d white blood cell (WBC) differential - 11/16/17 04:44 Blood leukocytes automated count (number/volume) 6.5 10*3/uL 4.3-11.0 Blood erythrocytes automated count (number/volume) 4.33 10*6/uL 4.35-5.85 Venous blood hemoglobin measurement (mass/volume) 14.1 g/dL 11.5-16.0 Blood hematocrit (volume fraction) 42 % 35-52 Automated erythrocyte mean corpuscular volume 96 [ foz_us] 80-99 Automated erythrocyte mean corpuscular h emoglobin (mass per erythrocyte) 33 pg 25-34 Automated erythrocyte mean corpuscular h emoglobin concentration measurement (mass/volume) 34 g/dL 32-36 Automated erythrocyte distribution width ratio 11. 8 % 10.0- 14.5 Automated blood platelet count (count/volume) 181 10*3/uL 130-400 Automated blood platelet mean volume measurement 11.4 [foz_us] 7.4-10.4 Automated blood neutrophils/100 leukocytes 48 % 42-75 Automated blood lymphocytes/100 leukocytes 41 % 12-44 Blood monocytes/100 leukocytes 9 % 0-12 Automated blood eosinophils/100 leukocytes 2 % 0-10 Automated blood basophils/100 leukocytes 0 % 0-10 Blood neutrophils automated count (number/volume) 3.1 10*3 1.8-7.8 Blood lymphocytes automated count (number/volume) 2.7 10*3 1.0-4.0 Blood monocytes automated count (number/volume) 0. 6 10*3 0.0-1.0 Automated eosinophil count 0.1 10*3/uL 0 .0-0.3 Automated blood basophil count (count/volume) 0.0 10*3/uL 0.0-0.1 Comprehensive metabolic panel - 11/16/17 04:44 Serum or plasma sodium measurement (moles/volume) 142 mmol/L 135-145 Serum or plasma potassium measurement (moles/volume) 4.0 mmol/L 3.6-5.0 Serum or plasma chloride measurement (moles/volume) 109 mmol/L 98-107 Carbon dioxide 22 mmol/L 21-32 Serum or plasma anion gap determination (moles/volume) 11 mmol/L 5-14 Serum or plasma urea nitrogen measurement (mass/volume ) 9 mg/dL 7-18 Serum or plasma creatinine measurement (mass/volume) 0.74 mg/dL 0.60-1.30 Serum or plasma urea nitrogen/creatinine mass ratio 12 NRG Serum or plasma creatinine measurement w ith calculation of estimated glomerular filtration rate > NRG Serum or plasma glucose measurement (mass/volume) 192 mg/dL 70-105 Serum or plasma calcium measurement (mass/volume) 9.6 mg/dL 8.5-10.1 Serum or plasma total bilirubin measurement (mass/volu me) 0.4 mg/dL 0.1-1.0 Serum or plasma alkaline phosphatase amelia surement (enzymatic activity/volume) 94 U/L 40-136 Serum or plasma aspartate aminotransfera se measurement (enzymatic activity/volume) 27 U/L 5-34 Serum or plasma alanine aminotransferase measurement (enzymatic activity/volume) 30 U/L 0-55 Serum or plasma protein measurement (mass/volume) 7.1 g/dL 6.4-8.2 Serum or plasma albumin measurement (mass/volume) 4.0 g/dL 3.2-4.5 CALCIUM CORRECTED 9.6 mg/dL 8.5-10.1 Serum or plasma amylase measurement (enz ymatic activity/volume) - 11/16/17 04:44 Serum or plasma amylase measurement (enzymatic activit y/volume) 30 U/L 25-125 Lipase - 11/16/17 04:44 Lipase 15 U/L 8-78 Capillary blood glucose measurement by g lucometer (mass/volume) - 11/16/17 12:19 Capillary blood glucose measurement by glucometer (mas s/volume) 243 mg/dL 70-110 Capillary blood glucose measurement by g lucometer (mass/volume) - 11/16/17 18:36 Capillary blood glucose measurement by glucometer (mas s/volume) 152 mg/dL 70-110 Capillary blood glucose measurement by g lucometer (mass/volume) - 11/16/17 23:43 Capillary blood glucose measurement by glucometer (mas s/volume) 135 mg/dL 70-110 Complete blood count (CBC) with automate d white blood cell (WBC) differential - 11/17/17 05:28 Blood leukocytes automated count (number/volume) 5.8 10*3/uL 4.3-11.0 Blood erythrocytes automated count (number/volume) 3.60 10*6/uL 4.35-5.85 Venous blood hemoglobin measurement (mass/volume) 12.1 g/dL 11.5-16.0 Blood hematocrit (volume fraction) 36 % 35-52 Automated erythrocyte mean corpuscular volume 99 [ foz_us] 80-99 Automated erythrocyte mean corpuscular h emoglobin (mass per erythrocyte) 34 pg 25-34 Automated erythrocyte mean corpuscular h emoglobin concentration measurement (mass/volume) 34 g/dL 32-36 Automated erythrocyte distribution width ratio 11. 9 % 10.0- 14.5 Automated blood platelet count (count/volume) 139 10*3/uL 130-400 Automated blood platelet mean volume measurement 11.5 [foz_us] 7.4-10.4 Automated blood neutrophils/100 leukocytes 37 % 42-75 Automated blood lymphocytes/100 leukocytes 55 % 12-44 Blood monocytes/100 leukocytes 7 % 0-12 Automated blood eosinophils/100 leukocytes 2 % 0-10 Automated blood basophils/100 leukocytes 0 % 0-10 Blood neutrophils automated count (number/volume) 2.1 10*3 1.8-7.8 Blood lymphocytes automated count (number/volume) 3.2 10*3 1.0-4.0 Blood monocytes automated count (number/volume) 0. 4 10*3 0.0-1.0 Automated eosinophil count 0.1 10*3/uL 0 .0-0.3 Automated blood basophil count (count/volume) 0.0 10*3/uL 0.0-0.1 Comprehensive metabolic panel - 11/17/17 05:28 Serum or plasma sodium measurement (moles/volume) 141 mmol/L 135-145 Serum or plasma potassium measurement (moles/volume) 3.8 mmol/L 3.6-5.0 Serum or plasma chloride measurement (moles/volume) 110 mmol/L 98-107 Carbon dioxide 23 mmol/L 21-32 Serum or plasma anion gap determination (moles/volume) 8 mmol/L 5-14 Serum or plasma urea nitrogen measurement (mass/volume ) 4 mg/dL 7-18 Serum or plasma creatinine measurement (mass/volume) 0.64 mg/dL 0.60-1.30 Serum or plasma urea nitrogen/creatinine mass ratio 6 NRG Serum or plasma creatinine measurement w ith calculation of estimated glomerular filtration rate > NRG Serum or plasma glucose measurement (mass/volume) 138 mg/dL 70-105 Serum or plasma calcium measurement (mass/volume) 8.2 mg/dL 8.5-10.1 Serum or plasma total bilirubin measurement (mass/volu me) 0.4 mg/dL 0.1-1.0 Serum or plasma alkaline phosphatase amelia surement (enzymatic activity/volume) 63 U/L 40-136 Serum or plasma aspartate aminotransfera se measurement (enzymatic activity/volume) 22 U/L 5-34 Serum or plasma alanine aminotransferase measurement (enzymatic activity/volume) 23 U/L 0-55 Serum or plasma protein measurement (mass/volume) 5.8 g/dL 6.4-8.2 Serum or plasma albumin measurement (mass/volume) 3.3 g/dL 3.2-4.5 CALCIUM CORRECTED 8.8 mg/dL 8.5-10.1 Capillary blood glucose measurement by g lucometer (mass/volume) - 11/17/17 05:47 Capillary blood glucose measurement by glucometer (mas s/volume) 128 mg/dL 70-110 Capillary blood glucose measurement by g lucometer (mass/volume) - 11/17/17 12:01 Capillary blood glucose measurement by glucometer (mas s/volume) 167 mg/dL 70-110 Capillary blood glucose measurement by g lucometer (mass/volume) - 11/17/17 18:20 Capillary blood glucose measurement by glucometer (mas s/volume) 155 mg/dL 70-110 Capillary blood glucose measurement by g lucometer (mass/volume) - 11/18/17 00:28 Capillary blood glucose measurement by glucometer (mas s/volume) 183 mg/dL 70-110 Capillary blood glucose measurement by g lucometer (mass/volume) - 11/18/17 05:07 Capillary blood glucose measurement by glucometer (mas s/volume) 122 mg/dL 70-110 Capillary blood glucose measurement by g lucometer (mass/volume) - 11/18/17 12:29 Capillary blood glucose measurement by glucometer (mas s/volume) 134 mg/dL 70-110 Complete blood count (CBC) with automate d white blood cell (WBC) differential - 05/01/19 04:53 Blood leukocytes automated count (number/volume) 7.3 10*3/uL 4.3-11.0 Blood erythrocytes automated count (number/volume) 4.44 10*6/uL 4.35-5.85 Venous blood hemoglobin measurement (mass/volume) 14.4 g/dL 11.5-16.0 Blood hematocrit (volume fraction) 43 % 35-52 Automated erythrocyte mean corpuscular volume 97 [ foz_us] 80-99 Automated erythrocyte mean corpuscular h emoglobin (mass per erythrocyte) 32 pg 25-34 Automated erythrocyte mean corpuscular h emoglobin concentration measurement (mass/volume) 33 g/dL 32-36 Automated erythrocyte distribution width ratio 12. 2 % 10.0- 14.5 Automated blood platelet count (count/volume) 184 10*3/uL 130-400 Automated blood platelet mean volume measurement 10.8 [foz_us] 7.4-10.4 Automated blood neutrophils/100 leukocytes 49 % 42-75 Automated blood lymphocytes/100 leukocytes 41 % 12-44 Blood monocytes/100 leukocytes 9 % 0-12 Automated blood eosinophils/100 leukocytes 2 % 0-10 Automated blood basophils/100 leukocytes 0 % 0-10 Blood neutrophils automated count (number/volume) 3.6 10*3 1.8-7.8 Blood lymphocytes automated count (number/volume) 3.0 10*3 1.0-4.0 Blood monocytes automated count (number/volume) 0. 6 10*3 0.0-1.0 Automated eosinophil count 0.1 10*3/uL 0 .0-0.3 Automated blood basophil count (count/volume) 0.0 10*3/uL 0.0-0.1 PT panel in platelet poor plasma by coag ulation assay - 05/01/19 04:53 Prothrombin time (PT) in platelet poor plasma by coagu lation assay 14.8 s 12.2-14.7 INR in platelet poor plasma or blood by coagulation as say 1.1 0.8-1.4 Activated partial thromboplastin time (a PTT) in platelet poor plasma bycoagulation assay - 05/01/19 04:53 Activated partial thromboplastin time (a PTT) in platelet poor plasma bycoagulation assay 32 s 24-35 Comprehensive metabolic panel - 05/01/19 04:53 Serum or plasma sodium measurement (moles/volume) 139 mmol/L 135-145 Serum or plasma potassium measurement (moles/volume) 4.5 mmol/L 3.6-5.0 Serum or plasma chloride measurement (moles/volume) 107 mmol/L 98-107 Carbon dioxide 21 mmol/L 21-32 Serum or plasma anion gap determination (moles/volume) 11 mmol/L 5-14 Serum or plasma urea nitrogen measurement (mass/volume ) 20 mg/dL 7-18 Serum or plasma creatinine measurement (mass/volume) 0.76 mg/dL 0.60-1.30 Serum or plasma urea nitrogen/creatinine mass ratio 26 NRG Serum or plasma creatinine measurement w ith calculation of estimated glomerular filtration rate > NRG Serum or plasma glucose measurement (mass/volume) 122 mg/dL 70-105 Serum or plasma calcium measurement (mass/volume) 9.3 mg/dL 8.5-10.1 Serum or plasma total bilirubin measurement (mass/volu me) 0.4 mg/dL 0.1-1.0 Serum or plasma alkaline phosphatase amelia surement (enzymatic activity/volume) 94 U/L 40-136 Serum or plasma aspartate aminotransfera se measurement (enzymatic activity/volume) 27 U/L 5-34 Serum or plasma alanine aminotransferase measurement (enzymatic activity/volume) 26 U/L 0-55 Serum or plasma protein measurement (mass/volume) 7.3 g/dL 6.4-8.2 Serum or plasma albumin measurement (mass/volume) 4.2 g/dL 3.2-4.5 CALCIUM CORRECTED 9.1 mg/dL 8.5-10.1 Magnesium - 05/01/19 04:53 Magnesium 1.9 mg/dL 1.6-2.4 Serum or plasma creatine kinase measurem ent (enzymatic activity/volume) - 05/01/19 04:53 Serum or plasma creatine kinase measurem ent (enzymatic activity/volume) 96 U/L 29-168 Serum or plasma creatine kinase MB measu rement (enzymatic activity/volume) - 05/01/19 04:53 Serum or plasma creatine kinase MB measu rement (enzymatic activity/volume) 1.8 ng/mL <6.6 Serum or plasma troponin i.cardiac measu rement (mass/volume) - 05/01/19 04:53 Serum or plasma troponin i.cardiac measurement (mass/v olume) < ng/mL <0.028 Myoglobin, serum - 05/01/19 04:53 Myoglobin, serum 37.4 ng/mL 10.0-92.0 Serum or plasma amylase measurement (enz ymatic activity/volume) - 05/01/19 04:53 Serum or plasma amylase measurement (enzymatic activit y/volume) 31 U/L 25-125 Lipase - 05/01/19 04:53 Lipase 22 U/L 8-78 Serum or plasma lithium measurement (mol es/volume) - 05/01/19 04:53 BNP PT 31.1 pg/mL <100.0 Serum or plasma troponin i.cardiac measu rement (mass/volume) - 05/01/19 08:05 Serum or plasma troponin i.cardiac measurement (mass/v olume) < ng/mL <0.028 THYROID STIMULATING HORMONE - 05/01/19 0 8:05 THYROID STIMULATING HORMONE 0.44 u[iU]/mL 0.35-4.94 Capillary blood glucose measurement by g lucometer (mass/volume) - 05/01/19 11:49 Capillary blood glucose measurement by glucometer (mas s/volume) 85 mg/dL 70-110 Encounters ACCT No. Visit Date/Time Discharge Status Pt. Type Provider Facility Loc./Unit Complaint [id number] 05/01/2019 06:00:00 020 14:00:00 DIS Inpatient BETH BAIN DO [facility] ICU CHEST PAIN;NIDD M [id number] 04/10/2019 13:03:00 020 23:59:59 CLS Outpatient BETH BAIN DO [facility] RAD PAIN IN LEFT CA LF [id number] 11/24/2018 09:25:00 019 13:40:00 DIS Outpatient AMANDA TRIANA DO [facility] ENDO CHANGE BOWEL HABITS/CHR ONIC GASTRITIS [id number] 11/17/2018 05:49:00 019 14:57:00 DIS Outpatient AMANDA TRIANA DO [facility] PREOP COLONOSCOPY/EGD [id number] 11/16/2017 07:32:00 018 17:15:00 DIS Inpatient BETH BAIN DO [facility] 4TH SMALL BOWEL OBS TRUCTION [id number] 11/11/2016 20:00:00 017 21:53:00 DIS Emergency VIVEK FUNEZ [facility] ER FLU SYMPTOMS [id number] 05/24/2016 07:10:00 017 13:51:00 DIS Outpatient ALEJANDRINA PERRIN MD [facility] SDC BILIARY DYSKINESIA [id number] 05/17/2016 09:07:00 017 10:05:00 DIS Outpatient ALEJANDRINA PERRIN MD [facility] PREOP BILIARY DYSKINESIA [id number] 04/30/2016 10:32:00 017 23:59:59 CLS Outpatient MARTIN SHANNON Jan PETROGR[employer]HY TEACHER [facility] CARD RUQ PAIN [id number] 11/24/2015 07:24:00 016 23:59:59 CLS Outpatient LEE SINGLETON L PETROGRAPHY TEACHER [facility] RAD RUQ PAIN [id number] 11/21/2015 18:01:00 016 23:59:59 CLS Outpatient LEE SINGLETON Jan PETROGRAPHY TEACHER [facility] LAB RUQ PAIN,SOA,CHEST PAIN [id number] 08/16/2015 21:15:00 016 06:40:00 DIS Outpatient PUJA CHRISTINE PETROGRAPHY TEACHER [facility] SLEEP SNORING,OBESITY,EXCESS ALEX DAYTIME SLEEPINESS [id number] 06/06/2015 09:21:00 016 13:25:00 DIS Outpatient SHERI LINDO MD [facility] SDC BLOOD IN STOOL [id number] 06/01/2015 05:53:00 016 14:17:00 DIS Outpatient BELGICA DUARTE, SHERI Bangura [facility] PREOP BLOOD IN STOOL [id number] 05/24/2015 07:27:00 016 23:59:59 CLS Outpatient BETH BAIN DO [facility] RAD RUQ PAIN [id number] 06/22/2013 07:26:00 014 23:59:59 CLS Outpatient BETH BAIN DO [facility] RAD ABD PAIN,GAININ G WEIGHT [id number] 01/14/2013 03:45:00 013 14:00:00 DIS Inpatient
--- NOTE | 2019-05-04 07:41 | Clinic Account Progress/Dx ---
Clinic Account Progress/Dx DIAGNOSIS: Time Seen by Provider: 07:40 Chest pain. Diabetes. Hyperlipidemia. Obesity. Coronary artery disease mild BETH BAIN DO May 04, 2019 07:41
== END 2019-05-01 14:00 | disposition home or self-care (01) ==
LOC: EDUNIT# 04:42 → ER 04:44 → ICU 06:00
PROVIDERS: ADMIT Family Medicine; ATTEND Family Medicine
DX: I25.10 Atherosclerotic heart disease of native coronary artery without angina pectoris (principal); I10 Essential (primary) hypertension; G47.30 Sleep apnea, unspecified; E78.00 Pure hypercholesterolemia, unspecified; E78.5 Hyperlipidemia, unspecified; E03.9 Hypothyroidism, unspecified; E11.9 Type 2 diabetes mellitus without complications; E66.01 Morbid (severe) obesity due to excess calories; N39.0 Urinary tract infection, site not specified; K59.09 Other constipation; K21.9 Gastro-esophageal reflux disease without esophagitis; G89.29 Other chronic pain; M54.9 Dorsalgia, unspecified; M79.7 Fibromyalgia; M19.90 Unspecified osteoarthritis, unspecified site; F32.9 Major depressive disorder, single episode, unspecified; Z90.89 Acquired absence of other organs; Z68.42 Body mass index [BMI] 45.0-49.9, adult; Z88.2 Allergy status to sulfonamides; Z88.5 Allergy status to narcotic agent; Z88.8 Allergy status to other drugs, medicaments and biological substances; Z79.84 Long term (current) use of oral hypoglycemic drugs; Z79.899 Other long term (current) drug therapy; Z87.891 Personal history of nicotine dependence; Z90.710 Acquired absence of both cervix and uterus
CPT/HCPCS: 36221; 36415; 71045; 80053; 82150; 82550; 82553; 82962; 83690; 83735; 83874; 83880; 84443; 84484; 85025; 85610; 85730; 93005; 93041; 93458

== ENCOUNTER 2020-02-01 11:15 | Inpatient (IN) | payer BC, MEDICAID ==
[~2020-02-01] VITALS: Ht 170 cm; Wt 138.4 kg
[~2020-02-01 11:15] MED LIST changes: -METF-760 PO; +METF-845 PO; +METF-865 PO; -METF500T19 PO; -PANT40TA3 PO; +PANT40TA52 PO
[2020-02-01] MEDS ORDERED: GABA-486 PO (12:04)
[2020-02-01 12:13] LABS: ALBUMIN 3.3 GM/DL (3.2-4.5); BASOPHILS % (AUTO) 0 % (0-10); CHLORIDE 107 MMOL/L (98-107); EOSINOPHILS # (AUTO) 0.1 10^3/uL (0.0-0.3); EOSINOPHILS % (AUTO) 1 % (0-10); HEMATOCRIT 47 % (35-52); LYMPHOCYTES # (AUTO) 1.9 10^3/uL (1.0-4.0); LYMPHOCYTES % (AUTO) 25 % (12-44); MEAN CORPUSCULAR HEMOGLOBIN 32 pg (25-34); MEAN CORPUSCULAR HGB CONC 34 g/dL (32-36); MEAN CORPUSCULAR VOLUME 94 fL (80-99); MEAN PLATELET VOLUME 11.7 fL (9.0-12.2); MONOCYTES # (AUTO) 0.6 10^3/uL (0.0-1.0); MONOCYTES % (AUTO) 7 % (0-12); NEUTROPHILS % (AUTO) 66 % (42-75); PLATELET COUNT 185 10^3/uL (130-400); POTASSIUM 4.4 MMOL/L (3.6-5.0); SODIUM 139 MMOL/L (135-145); WHITE BLOOD COUNT 7.6 10^3/uL (4.3-11.0)
[2020-02-01 12:14] LABS: CALCIUM 8.4 MG/DL (8.5-10.1)
[2020-02-01 12:16] LABS: GLUCOSE 285 MG/DL (70-105); TOTAL PROTEIN 6.9 GM/DL (6.4-8.2)
[2020-02-01 12:17] LABS: CARBON DIOXIDE 22 MMOL/L (21-32)
[2020-02-01 12:18] LABS: BILIRUBIN,TOTAL 0.7 MG/DL (0.1-1.0)
[2020-02-01 12:19] LABS: ALKALINE PHOSPHATASE 91 U/L (40-136); CREATININE SERUM 0.79 MG/DL (0.60-1.30); GFR ESTIMATED > 60
[2020-02-01 12:20] LABS: BUN/CREATININE RATIO 20
[2020-02-01 12:22] LABS: ALANINE AMINOTRANSFERASE 31 U/L (0-55)
--- NOTE | 2020-02-01 12:32 | Diagnostic Imaging Report ---
INDICATION: COVID positive, increased shortness of breath. Frontal chest obtained at 12:26 p.m. and compared to 05/01/2019. Heart is mildly enlarged. There is central vascular congestion. There is worsening patchy infiltrate in the mid to lower lung grullon on both sides. There is no pneumothorax or pleural fluid. IMPRESSION: Mild cardiomegaly and central vascular congestion. Worsening patchy bibasilar infiltrates in the mid to lower lung grullon on both sides, compatible with pneumonia. Dictated by: Dictated on workstation # [id number]
--- NOTE | 2020-02-01 12:37 | ED Cough/URI ---
General Chief Complaint: Respiratory Problems Stated Complaint: COVID+, CP, DIFFICULTY BREATHING Nursing Triage Note: pt presents to ed from home via pov for soa and cp with inspiration. pt reports she tested positive for covid on 01/19. reports on 01/28 she became more soa and developed cp. pt reprots she was placed on omnicef and azithromycin on saturday. pt also reports finishing a pack of steriods. Sepsis Screen: No Definite Risk Source: patient Exam Limitations: no limitations History of Present Illness Date Seen by Provider: Feb 01, 2020 Time Seen by Provider: 12:34 Initial Comments To ER by private vehicle from home with reports of chest pain and dyspnea on ex ertion and at rest. 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 She tested positive the next day. She completed a 10-day course of dexamethasone written by her primary care provider Dr. Bain on 01/29/2020. She is currently on Omnicef and azithromycin. She is a diabetic. States that she is exhausted and simple tasks such as walking to the bathroom require 10 to 15 minutes to recover from. Showering yesterday was very difficult due to weakness and shortness of breath. Timing/Duration: constant Severity/Quality: dry cough Associated Symptoms: cough, shortness of breath, wheezing Allergies and Home Medications Allergies Coded Allergies: Sulfa (Sulfonamide Antibiotics) (Verified Allergy, Severe, RASH IN MOUTH, 05/17/16) fentanyl (Verified Allergy, Intermediate, NAUSEA, 11/18/17) FEEL BAD hydrocodone (Verified Allergy, Intermediate, GI UPSET, 05/17/16) meperidine (Verified Allergy, Intermediate, GI UPSET, 05/17/16) Home Medications Canagliflozin 100 Mg Tablet, 100 MG PO DAILY, (Reported) Diclofenac Sodium 75 Mg Tablet.dr, 75 MG PO HS, (Reported) Gabapentin 100 Mg Capsule, 100 MG PO Q8H, (Reported) Glimepiride 4 Mg Tablet, 4 MG PO BID, (Reported) Levothyroxine Sodium 175 Mcg Tablet, 175 MCG PO DAILY, (Reported) Mv-Mn/Folic Acid/Calcium/Vit K 1 Each Tablet, 1 EACH PO DAILY, (Reported) Pantoprazole Sodium 40 Mg Tablet.dr, 40 MG PO DAILY, (Reported) Sitagliptin Phosphate 100 Mg Tablet, 100 MG PO DAILY, (Reported) Tramadol HCl 50 Mg Tablet, 50 MG PO BID PRN for PAIN-MODERATE, (Reported) Trazodone HCl 50 Mg Tablet, 50 MG PO HS, (Reported) Patient Home Medication List Home Medication List Reviewed: Yes Review of Systems Review of Systems Constitutional: see HPI; No chills, No fever; malaise, weakness EENTM: see HPI Respiratory: see HPI, cough, dyspnea on exertion, short of breath Cardiovascular: no symptoms reported Genitourinary: no symptoms reported Musculoskeletal: no symptoms reported Skin: no symptoms reported Psychiatric/Neurological: No Symptoms Reported Hematologic/Lymphatic: No Symptoms Reported Past Rppksgf-Cyezax-Pwwnfv Hx Patient Social History Alcohol Use: Denies Use Number of Drinks Today: II Alcohol Beverage of Choice: Other Recreational Drug Use: No Smoking Status: Former Smoker Type Used: Cigarettes Former Smoker, Quit: Nov 16, 2012 Recent Foreign Travel: No Contact w/Someone Who Travel: No Recent Infectious Disease Expo: No Recent Hopitalizations: No Physical Abuse: No Sexual Abuse: No Mistreated: No Fear: No Immunizations Up To Date Tetanus Booster (TDap): Unknown Date of Influenza Vaccine: Nov 10, 2015 Seasonal Allergies Seasonal Allergies: No Past Medical History Surgeries: Yes (ORAL SURGERY FOR JAW FX; L KNEE SCOPE; HYST/OVARIES INTACT) Gallbladder, Hysterectomy, Orthopedic, Tonsillectomy, 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 Respiratory: Yes Sleep Apnea Currently Using CPAP: Yes Cardiac: Yes (TACHYCARDIA) Palpitations Neurological: No Reproductive Disorders: No [employer] 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, 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 Sexually Transmitted Disease: No HIV/AIDS: No Genitourinary: Yes Bladder Infection, UTI-Chronic Gastrointestinal: Yes (HX ILEUS/SBO--NO SURGERY) Gastroesophageal Reflux, Chronic Constipation, Diverticulosis, Polyps Musculoskeletal: Yes ("MUSCLE PAIN ALL OVER" ; CHRONIC KNEE AND BACK PAIN) Degenerate Disk Disease, Arthritis, Fibromyalgia, Chronic Back Pain Endocrine: Yes (OBESITY) Hypothyroidsim, Diabetes, Non-Insulin dep HEENT: No Loss of Vision: Bilateral Hearing Impairment: Denies Cancer: No Psychosocial: Yes Depression Integumentary: Yes (RASH/ACNE UNDER ARMS AND BREAST) Blood Disorders: No Adverse Reaction/Blood Tranf: No Family Medical History Alcoholism 09 BROTHER, Onset:Unknown Cancer 03 FATHER, Onset:Unknown 09 BROTHER, Onset:Unknown Cataract 03 MOTHER, Onset:Unknown Congestive heart failure 03 MOTHER, Onset:Unknown Family history: Diabetes mellitus 03 FATHER, Onset:Unknown 03 MOTHER, Onset:Unknown Family history: Thyroid disorder 03 MOTHER, Onset:Unknown Heart disease 03 FATHER, Onset:Unknown History of drug abuse 09 BROTHER, Onset:Unknown Cancer, CAD Over 55 Years Old, Diabetes Physical Exam Vital Signs - First Documented 02/01/20 11:45 Temp 36.4 Pulse 92 Resp 20 B/P (MAP) 127/81 (96) Pulse Ox 91 O2 Delivery Room Air Capillary Refill : Less Than 3 Seconds Height: 5'6.00" Weight: 299lbs. 3.0oz. 135.800974pb; 30.00 BMI Method:Stated General Appearance: WD/WN, no apparent distress, obese, other (Alert and oriented very pleasant no distress but does appear to feel ill. Oxygen saturation 89 to 91% at rest. Up to 92% on 2 L of supplemental oxygen.) HEENT: PERRL/EOMI, normal ENT inspection Neck: non-tender, full range of motion Respiratory: normal breath sounds, no respiratory distress, no accessory muscle use Cardiovascular: regular rate, rhythm, no murmur Gastrointestinal: normal bowel sounds, non tender, soft Neurologic/Psychiatric: alert, normal mood/affect, oriented x 3 Skin: normal color, warm/dry Progress/Results/Core Measures Suspected Sepsis Recent Fever Within 48 Hours: No Infection Criteria Present: Documented Infection New/Unexplained Altered Menta: No Sepsis Screen: No Definite Risk SIRS Temperature: Pulse: 92 Respiratory Rate: 20 Laboratory Tests 02/01/20 11:48: White Blood Count 7.6 Blood Pressure 127 /81 Mean: 96 Laboratory Tests 02/01/20 11:48: Creatinine 0.79, Platelet Count 185, Total Bilirubin 0.7 Results/Orders Lab Results Laboratory Tests Test 02/01/20 11:48 Range/Units White Blood Count 7.6 4.3-11.0 10^3/uL Red Blood Count 5.01 3.80-5.11 10^6/uL Hemoglobin 16.0 11.5-16.0 g/dL Hematocrit 47 35-52 % Mean Corpuscular Volume 94 80-99 fL Mean Corpuscular Hemoglobin 32 25-34 pg Mean Corpuscular Hemoglobin Concent 34 32-36 g/dL Red Cell Distribution Width 12.9 10.0-14.5 % Platelet Count 185 130-400 10^3/uL Mean Platelet Volume 11.7 9.0-12.2 fL Immature Granulocyte % (Auto) 1 % Neutrophils (%) (Auto) 66 42-75 % Lymphocytes (%) (Auto) 25 12-44 % Monocytes (%) (Auto) 7 0-12 % Eosinophils (%) (Auto) 1 0-10 % Basophils (%) (Auto) 0 0-10 % Neutrophils # (Auto) 5.0 1.8-7.8 10^3/uL Lymphocytes # (Auto) 1.9 1.0-4.0 10^3/uL Monocytes # (Auto) 0.6 0.0-1.0 10^3/uL Eosinophils # (Auto) 0.1 0.0-0.3 10^3/uL Basophils # (Auto) 0.0 0.0-0.1 10^3/uL Immature Granulocyte # (Auto) 0.1 0.0-0.1 10^3/uL D-Dimer 1.42 H 0.00-0.49 UG/ML Sodium Level 139 135-145 MMOL/L Potassium Level 4.4 3.6-5.0 MMOL/L Chloride Level 107 98-107 MMOL/L Carbon Dioxide Level 22 21-32 MMOL/L Anion Gap 10 5-14 MMOL/L Blood Urea Nitrogen 16 7-18 MG/DL Creatinine 0.79 0.60-1.30 MG/DL Estimat Glomerular Filtration Rate > 60 BUN/Creatinine Ratio 20 Glucose Level 285 H 70-105 MG/DL Calcium Level 8.4 L 8.5-10.1 MG/DL Corrected Calcium 9.0 8.5-10.1 MG/DL Total Bilirubin 0.7 0.1-1.0 MG/DL Aspartate Amino Transf (AST/SGOT) 28 5-34 U/L Alanine Aminotransferase (ALT/SGPT) 31 0-55 U/L Alkaline Phosphatase 91 40-136 U/L C-Reactive Protein High Sensitivity 8.01 H 0.00-0.50 MG/DL Total Protein 6.9 6.4-8.2 GM/DL Albumin 3.3 3.2-4.5 GM/DL My Orders Orders - CRISTIANA LEDEZMA ELECTRIC BLANKET WIRER Fibrin Degradation Products (02/01/20 12:06) Hs C Reactive Protein (02/01/20 12:06) BNP (02/01/20 12:06) Chest 1 View, Ap/Pa Only (02/01/20 12:06) Cbc With Automated Diff (02/01/20 12:06) Comprehensive Metabolic Panel (02/01/20 12:06) Ed Iv/Invasive Line Start (02/01/20 12:06) Vital Signs/I&O 02/01/20 11:45 Temp 36.4 Pulse 92 Resp 20 B/P (MAP) 127/81 (96) Pulse Ox 91 O2 Delivery Room Air Capillary Refill : Less Than 3 Seconds Blood Pressure Mean: 96 Departure Impression Primary Impression: Hypoxia Additional Impression: COVID-19 Disposition: ADMITTED INPATIENT Condition: Stable Admissions Decision to Admit Reason: Admit from ER (General) Decision to Admit/Date: Feb 01, 2020 Time/Decision to Admit Time: 12:36 Departure-Patient Inst. Referrals: BETH BAIN DO (PCP/Family) Primary Care Physician CRISTIANA LEDEZMA APRN Feb 01, 2020 12:37
[2020-02-01] MEDS ORDERED: NS 100 ML (IVPB) BAG IV ONE (13:00)
[2020-02-01] MEDS ORDERED: IOHEXOL 350 MG/ML 100 ML (OMNIPAQUE 350) VIAL IV ONE (13:00)
[2020-02-01] MEDS ORDERED: HOLD METFORMIN - RECEIVED CONTRAST 20 ML VIAL IV SCH (13:00)
[2020-02-01] MEDS: CATHETER FLUSH 10 ML SYR IV PRN (13:35)
--- NOTE | 2020-02-01 14:16 | Diagnostic Imaging Report ---
PROCEDURE: CT angiography of the chest with contrast. TECHNIQUE: Multiple contiguous axial images were obtained through the chest after uneventful bolus administration of intravenous contrast. 3D reconstructed CTA MIP acquisitions were also performed. Auto Exposure Controls were utilized during the CT exam to meet ALARA standards for radiation dose reduction. DATE: February 01, 2020. COMPARISON: Chest radiograph February 01, 2020. INDICATION: 59-year-old female, shortness of breath. Elevated D-dimer. The patient is COVID positive. FINDINGS: There is multifocal bilateral patchy alveolar consolidation including areas of groundglass type attenuation. There is no identified pulmonary nodule. There is no lung mass. There is no pneumothorax. There is no identified pleural effusion. There is no identified pulmonary embolus. The main pulmonary artery is normal in caliber. The heart is not enlarged. There is no pericardial effusion. There is no identified abnormally enlarged mediastinal, hilar, or axillary lymph node which meets CT size criteria for adenopathy. The patient is status post cholecystectomy. There is a left adrenal nodule on axial image 136 measuring 1.4 cm in size with indeterminate internal attenuation value of 20 Hounsfield units on this postcontrast exam. There is no identified acute bony abnormality. IMPRESSION: CT CHEST. 1. No identified pulmonary embolus. 2. Multifocal patchy alveolar consolidation in the lungs most likely relating to multifocal pneumonia and provided history of COVID 19 infection although is technically nonspecific. Other infectious etiologies and pneumonitis is also in the differential diagnosis based on imaging appearance alone. Dictated by: Dictated on workstation # [id number]
--- NOTE | 2020-02-01 15:00 | NUR ---
NOREEN CRABTREE admitted to room 423-1, with an admitting diagnosis of HYPOXIA/COVID 19, on 02/01/20 from ED via , accompanied by STAFF.NOREEN CRABTREE introduced to surroundings, call light, bed controls, phone, TV, temperature control, lights, meal times, smoking policy, visitor policy, side rail policy, bathrooms and showers. Patient Rights given to patient in the handbook. NOREEN CRABTREE verbalizes understanding that [facility] is not responsible for the loss or damage to any personal effects or valuables that are kept in the patients posession during their hospitalization.
[2020-02-01 15:12] VITALS: BP 128/67
[2020-02-01] MEDS ORDERED: PROMETH/COD (15:32)
[2020-02-01] MEDS ORDERED: AZIT250T12 PO (15:32)
[2020-02-01] MEDS ORDERED: CEFD300C3 PO (15:32)
[2020-02-01 15:53] VITALS: BP 128/67
[2020-02-01] MEDS ORDERED: PROM5SYR PO (15:58)
[2020-02-01] MEDS ORDERED: CHOL500044 PO (16:00)
[2020-02-01] MEDS ORDERED: ZINC50TA58 PO (16:00)
[2020-02-01] MEDS ORDERED: ASCO1TAB42 PO (16:00)
--- NOTE | 2020-02-01 16:01 | NUR ---
SPOKE WITH THE PT (CALLED HER ROOM PHONE) AND WENT THRU THE EXT MED HISTORY TO COMPLETE THE MED REC PT LISTED ALL HER MEDICATIONS WELL WHEN/HOW SHE TAKES EACH- ALL HER INFORMATINO MATCHED THE EXT MED HISTORY ON 01-20-2020 PT FILLED DEXAMETHASONE FOR A 10 DAY SUPPLY- ACCORDING TO THE PT SHE IS FINISHED WITH THIS THERAPY OTC MEDs: VIT D3 ZINC ELDERBERRY W/ VIT C
[2020-02-01] MEDS ORDERED: NON-FORMULARY MEDICATION 1 EA EA (Promethazine HCl/Codeine (Prometh-Codein 6.25-10 mg/5 ml PO PRN (16:15)
--- NOTE | 2020-02-01 16:56 | History & Physical-Hospitalist ---
History of Present Illness HPI/Chief Complaint Pt is a 59yoCF with a PMH of NIDDMII who presented to the ER due to SOB. She was diagnosed with COVID on 01/19 after becoming symptomatic the day before. She was started on decadron and azithromycin by her PCP. When he symptoms persistent she was started on Omnicef and another z-pack. She continued to worsen and was more short of breath so decided to seek evaluation in the Er. She was found to be mildly hypoxic and admitted for further management. We discussed treatment options and she declined further decadron or antibiotics as she "knows they don't work on viruses." Source: patient Date Seen 02/01/20 Time Seen by a Provider: 16:50 Attending Physician Bindu Kendall MD PCP Beth Bain DO Referring Physician Date of Admission Feb 01, 2020 at 12:43 Home Medications & Allergies Home Medications Reviewed patient Home Medication Reconciliation performed by pharmacy medication reconciliations maintenance technician and/or nursing. Patients Allergies have been reviewed. Allergies Allergies Coded Allergies Sulfa (Sulfonamide Antibiotics) (Verified Allergy, Severe, RASH IN MOUTH, 05/17/16) fentanyl (Verified Allergy, Intermediate, NAUSEA, 11/18/17) FEEL BAD hydrocodone (Verified Allergy, Intermediate, GI UPSET, 05/17/16) meperidine (Verified Allergy, Intermediate, GI UPSET, 05/17/16) Past Vrycsde-Naomzu-Cqvpwu Hx Past Med/Social Hx: Reviewed Nursing Past Med/Soc Hx Patient Social History Marrital Status: Employed/Student: employed Alcohol Use: Denies Use Alcohol Beverage of Choice: Other Recreational Drug Use: No Smoking Status: Former Smoker Former Smoker, Quit: Nov 16, 2012 Type Used: Cigarettes Recent Foreign Travel: No Contact w/other who traveled: No Recent Hopitalizations: No Recent Infectious Disease Expo: No Immunizations Up To Date Tetanus Booster (TDap): Unknown Date of Influenza Vaccine: Dec 10, 2019 Seasonal Allergies Seasonal Allergies: No Past Medical History Surgeries: Gallbladder, Hysterectomy, Orthopedic, Tonsillectomy, 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 Currently Using CPAP: Yes Cardiac: Palpitations Reproductive: No Sexually Transmitted Disease: No HIV/AIDS: No Hysterectomy, Menopausal Genitourinary: Bladder Infection, UTI-Chronic Gastrointestinal: Gastroesophageal Reflux, Chronic Constipation, Diverticulosis, Polyps Musculoskeletal: Degenerate Disk Disease, Arthritis, Fibromyalgia, Chronic Back Pain Endocrine: Hypothyroidsim, Diabetes, Non-Insulin dep Loss of Vision: Bilateral Hearing Impairment: Denies Psychosocial: Depression History of Blood Disorders: No Adverse Reaction to Blood Park: No Family History Alcoholism 09 BROTHER, Onset:Unknown Cancer 03 FATHER, Onset:Unknown 09 BROTHER, Onset:Unknown Cataract 03 MOTHER, Onset:Unknown Congestive heart failure 03 MOTHER, Onset:Unknown Family history: Diabetes mellitus 03 FATHER, Onset:Unknown 03 MOTHER, Onset:Unknown Family history: Thyroid disorder 03 MOTHER, Onset:Unknown Heart disease 03 FATHER, Onset:Unknown History of drug abuse 09 BROTHER, Onset:Unknown Cancer, CAD Over 55 Years Old, Diabetes Review of Systems Constitutional: chills, diaphoresis, fever, weakness EENTM: no symptoms reported Respiratory: cough, short of breath Cardiovascular: No chest pain, No edema, No Hx of Intervention Gastrointestinal: No abdominal pain; loss of appetite; No nausea, No vomiting Genitourinary: no symptoms reported Musculoskeletal: no symptoms reported Skin: no symptoms reported Psychiatric/Neurological: No Symptoms Reported Physical Exam Physical Exam Vital Signs Vital Signs - First Documented 02/01/20 02/01/20 02/01/20 11:45 14:40 17:13 Temp 36.4 Pulse 92 Resp 20 B/P (MAP) 127/81 (96) Pulse Ox 91 O2 Delivery Room Air O2 Flow Rate 2.00 FiO2 28 Capillary Refill : Less Than 3 Seconds Height, Weight, BMI Height: 5'6.00" Weight: 299lbs. 3.0oz. 135.627773my; 30.76 BMI Method:Stated General Appearance: No Apparent Distress, WD/WN, Obese HEENT: PERRL/EOMI, Moist Mucous Membranes; No Scleral Icterus (L), No Scleral Icterus (R) Neck: Normal Inspection, Supple Respiratory: Lungs Clear; No Rhonci, No Wheezing; Other (on nasal cannula 2lpm) Cardiovascular: Regular Rate, Rhythm, No Murmur Gastrointestinal: Normal Bowel Sounds, Non Tender, Soft Extremity: No Calf Tenderness, No Pedal Edema Neurologic/Psychiatric: Alert, Oriented x3, Normal Mood/Affect Results Results/Procedures Labs Laboratory Tests 02/01/20 11:48 Patient resulted labs reviewed. Imaging: Reviewed Imaging Report Imaging [facility] [place], [place] NAME: NOREEN CRABTREE [facility] REC#: [id number] PT STATUS: REG ER : 1960 PHYSICIAN: CRISTIANA LEDEZMA APRN ADMIT DATE: 02/01/20/ER Signed Date of Exam:02/01/20 CHEST 1 VIEW, AP/PA ONLY INDICATION: COVID positive, increased shortness of breath. Frontal chest obtained at 12:26 p.m. and compared to 05/01/2019. Heart is mildly enlarged. There is central vascular congestion. There is worsening patchy infiltrate in the mid to lower lung grullon on both sides. There is no pneumothorax or pleural fluid. IMPRESSION: Mild cardiomegaly and central vascular congestion. Worsening patchy bibasilar infiltrates in the mid to lower lung grullon on both sides, compatible with pneumonia. Dictated by: Dictated on workstation # [id number] Dict: 02/01/20 1230 Trans: 02/01/20 1332 CV [id number] Interpreted by: DIOR WEAVER MD Electronically signed by: DIOR WEAVER MD 02/01/20 1332 [facility] [place] NAME: NOREEN CRABTREE [facility] REC#: [id number] PT STATUS: ADM IN : 1960 PHYSICIAN: CRISTIANA LEDEZMA APRN ADMIT DATE: 02/01/20/[facility] Draft Date of Exam:02/01/20 CT ANGIO CHEST W PROCEDURE: CT angiography of the chest with contrast. TECHNIQUE: Multiple contiguous axial images were obtained through the chest after uneventful bolus administration of intravenous contrast. 3D reconstructed CTA MIP acquisitions were also performed. Auto Exposure Controls were utilized during the CT exam to meet ALARA standards for radiation dose reduction. DATE: February 01, 2020. COMPARISON: Chest radiograph February 01, 2020. INDICATION: 59-year-old female, shortness of breath. Elevated D-dimer. The patient is COVID positive. FINDINGS: There is multifocal bilateral patchy alveolar consolidation including areas of groundglass type attenuation. There is no identified pulmonary nodule. There is no lung mass. There is no pneumothorax. There is no identified pleural effusion. There is no identified pulmonary embolus. The main pulmonary artery is normal in caliber. The heart is not enlarged. There is no pericardial effusion. There is no identified abnormally enlarged mediastinal, hilar, or axillary lymph node which meets CT size criteria for adenopathy. The patient is status post cholecystectomy. There is a left adrenal nodule on axial image 136 measuring 1.4 cm in size with indeterminate internal attenuation value of 20 Hounsfield units on this postcontrast exam. There is no identified acute bony abnormality. IMPRESSION: CT CHEST. 1. No identified pulmonary embolus. 2. Multifocal patchy alveolar consolidation in the lungs most likely relating to multifocal pneumonia and provided history of COVID 19 infection although is technically nonspecific. Other infectious etiologies and pneumonitis is also in the differential diagnosis based on imaging appearance alone. Dictated on workstation # [id number] Dict: 02/01/20 1334 Trans: 02/01/20 1416 CVB [id number] Interpreted by: MILA ALVARES MD Electronically signed by: Assessment/Plan Admission Diagnosis Acute hypoxic respiratory failure Admission Status: Inpatient Order (span 2 midnights) Reason for Inpatient Admission: see below Assessment and Plan Acute hypoxic respiratory failure due to COVID19 Outside of window for remdesivir Has already competed 10 day course of decadron and declines further doses due to side effects Consents to convalescent plasma, EUA status explained to patient, ordered procal negative Oxygen saturation maintained on nasal cannula NIDDMII Continue home meds as able BS 285 on arrival Obesity no needs, clinically significant DVT ppx: Lovenox Diagnosis/Problems Diagnosis/Problems (1) Acute respiratory failure Status: Acute Qualifiers: Respiratory failure complication: hypoxia Qualified Codes: J96.01 - Acute respiratory failure with hypoxia (2) COVID-19 Status: Acute (3) Hypoxia Status: Acute (4) Non-insulin dependent type 2 diabetes mellitus Clinical Quality Measures DVT/VTE Risk/Contraindication: Risk Factor Score Per Nursin RFS Level Per Nursing on Admit: 4+=Very High Copy Copies To 1: BETH BAIN KATELYN M MD Feb 01, 2020 16:56
[2020-02-01 17:13] VITALS: BP 127/81
[2020-02-01] MEDS: PROMETHAZINE/ CODEINE SYRUP 5 ML UDC PO PRN (17:38)
[2020-02-01] MEDS: GLIMEPIRIDE 4 MG (AMARYL) TAB PO SCH (17:38)
[2020-02-01] MEDS: ENOXAPARIN 100 MG/1 ML (LOVENOX) SYR SC SCH (17:39)
[2020-02-01 20:12] VITALS: BP 117/63
[2020-02-01] MEDS: GABAPENTIN 100 MG (NEURONTIN) CAP PO SCH (20:49)
[2020-02-01] MEDS: PANTOPRAZOLE 40 MG (PROTONIX) TAB PO SCH (20:50)
[2020-02-01] MEDS ORDERED: NON-FORMULARY MEDICATION 1 EA EA (Diclofenac Sodium 75 MG) PO SCH (21:00)
[2020-02-01] MEDS ORDERED: CEFDINIR 300 MG (OMNICEF) CAP PO SCH (21:00)
[2020-02-01] MEDS: traZODone 50 MG (DESYREL) TAB PO SCH (21:10)
[2020-02-01] MEDS: RT-ALBUTEROL INHALER HFA (VENTOLIN HFA) 18 GM IH SCH (21:44)
[2020-02-02] VITALS (9 sets, daily range): BP systolic 100–121; BP diastolic 54–68
[2020-02-02] MEDS: LEVOTHYROXINE 75 MCG (LEVOTHROID) TABLET PO SCH (05:35)
[2020-02-02] MEDS: LEVOTHYROXINE 100 MCG (LEVOTHROID) TAB PO SCH (05:35)
[2020-02-02] MEDS: ENOXAPARIN 100 MG/1 ML (LOVENOX) SYR SC SCH ×2 (05:35→16:49)
[2020-02-02] MEDS: ETODOLAC 300 MG (LODINE) CAP PO SCH ×2 (08:44→18:07)
[2020-02-02] MEDS: GABAPENTIN 100 MG (NEURONTIN) CAP PO SCH ×2 (08:45→21:17)
[2020-02-02] MEDS: LINAGLIPTIN (TRADJENTA) 5 MG TABLET PO SCH (08:45)
[2020-02-02] MEDS: VITAMIN D3 125 MCG (5,000 UNITS) CAPSULE PO SCH (08:45)
[2020-02-02] MEDS: ZINC SULFATE 220 MG CAPSULE PO SCH (08:45)
[2020-02-02] MEDS ORDERED: NON-FORMULARY MEDICATION 1 EA EA (Sitagliptin Phosphate (Januvia) 100 MG) PO SCH (09:00)
[2020-02-02] MEDS ORDERED: NON-FORMULARY MEDICATION 1 EA EA (Canagliflozin (Invokana) 100 MG) PO SCH (09:00)
[2020-02-02] MEDS ORDERED: LEVOTHYROXINE SODIUM 175 MCG PO SCH (09:00)
[2020-02-02] MEDS ORDERED: NON-FORMULARY MEDICATION 1 EA EA (Zinc 50 MG) PO SCH (09:00)
[2020-02-02] MEDS ORDERED: ZINC SULFATE 220 MG CAPSULE PO SCH (09:00)
[2020-02-02] MEDS: RT-ALBUTEROL INHALER HFA (VENTOLIN HFA) 18 GM IH SCH ×2 (09:17→19:36)
--- NOTE | 2020-02-02 11:23 | Progress Note - Hospitalist ---
Subjective HPI/CC On Admission Date Seen by Provider: Feb 02, 2020 Time Seen by Provider: 11:19 Pt is a 59yoCF with a PMH of NIDDMII who presented to the ER due to SOB. She was diagnosed with COVID on 01/19 after becoming symptomatic the day before. She was started on decadron and azithromycin by her PCP. When he symptoms persistent she was started on Omnicef and another z-pack. She continued to worsen and was more short of breath so decided to seek evaluation in the Er. She was found to be mildly hypoxic and admitted for further management. We discussed treatment opt ions and she declined further decadron or antibiotics as she "knows they don't work on viruses. Subjective/Events-last exam Pt reports doing ok today. Still winded with ambulation. Objective Exam Vital Signs Vital Signs Date Time Temp Pulse Resp B/P (MAP) Pulse Ox O2 Delivery O2 Flow Rate FiO2 02/02/20 19:36 93 Nasal Cannula 4.00 02/02/20 16:00 36.2 82 16 116/57 (76) 02/01/20 17:13 28 Capillary Refill : Less Than 3 Seconds General Appearance: No Apparent Distress, Chronically ill, Obese Respiratory: Lungs Clear; No Rhonci, No Wheezing; Other (on 4lpm NC) Cardiovascular: Regular Rate, Rhythm, No Murmur Gastrointestinal: Normal Bowel Sounds, Non Tender, Soft Neurologic/Psychiatric: Alert, Oriented x3 Results/Procedures Lab Patient resulted labs reviewed. Imaging: Reviewed Imaging Report Assessment/Plan Assessment and Plan Assess & Plan/Chief Complaint Acute hypoxic respiratory failure due to COVID19 Outside of window for remdesivir Has already competed 10 day course of decadron and declines further doses due to side effects Consents to convalescent plasma, EUA status explained to patient, ordered- awaiting procal negative Oxygen saturation maintained on nasal cannula currently NIDDMII Continue home meds We do not carry invokana, advised patient that she can bring in her own if she would like Add SSI DVT ppx: lovenox Diagnosis/Problems Diagnosis/Problems (1) COVID-19 Status: Acute (2) Hypoxia Status: Acute (3) Non-insulin dependent type 2 diabetes mellitus Clinical Quality Measures DVT/VTE Risk/Contraindication: Risk Factor Score Per Nursin RFS Level Per Nursing on Admit: 4+=Very High JENNI GENAO MD Feb 02, 2020 11:23
[2020-02-02] MEDS ORDERED: NS IV 500 ML 500 ML ONE (14:02)
--- NOTE | 2020-02-02 14:30 | NUR ---
"RD ASSESSMENT PMHx: chronic UTI; GERD; chronic constipation; fibromyalgia; hypothyroidism; DM; PT INTERACTION: Received dietary consult for MST score. Note pt is currently in COVID isolation per chart review. Note all diet information for nutrition assessment is per Donaldo RN or per chart review. Donaldo states current appetite appears good. Note PO intake 100% x1meal, per chart review. Donaldo states no issues with nausea, vomiting, constipation, or diarrhea that he is aware of, and that her last BM was 01/31. Note pt not currently on bowel regimen per chart review. Note unable to determine current level of DM management, and unable to determine recent HbA1c, per chart review. Note 104# wt loss x9mon, per chart review. This is significant wt loss. Note unable to conduct visual assessment d/t isolation precautions. Note unable to determine if pt meets criteria for malnutrition per ASPEN guidelines. Will continue to monitor PO intake. ABNORMAL NUTRITION-RELATED LAB VALUES LOW: Ca 8.4; HIGH: glu 285; Est. kcal needs: 5824-8277 kcal | 15-20 kcal/kg Est. Pro needs: 71-89 g Pro | 0.8-1.0 g Pro/kg PES STATEMENT: Given current PO intake and appetite, no nutrition diagnosis at this time (NO-1.1). INTERVENTION: Would recommend switching to consistent CHO diet, as pt has hx of DM. Did not offer diet education on DM management d/t isolation precautions. Will continue to follow and reassess as pt needs, intake, and status change. Donal LANDEROS, MS RD [phone] cell"
[2020-02-02] MEDS: GLIMEPIRIDE 4 MG (AMARYL) TAB PO SCH (17:04)
[2020-02-02] MEDS: PANTOPRAZOLE 40 MG (PROTONIX) TAB PO SCH (21:16)
[2020-02-02] MEDS: traZODone 50 MG (DESYREL) TAB PO SCH (21:16)
[2020-02-03] VITALS (7 sets, daily range): BP systolic 116–136; BP diastolic 59–75
[2020-02-03] MEDS: inSUlin ASPART (NovoLOG) 1 UNIT/0.01 ML (CHARGE PER UNIT) SC SCH ×4 (06:17→20:31)
[2020-02-03] MEDS: ENOXAPARIN 100 MG/1 ML (LOVENOX) SYR SC SCH ×2 (07:01→18:26)
[2020-02-03] MEDS: LEVOTHYROXINE 100 MCG (LEVOTHROID) TAB PO SCH (07:01)
[2020-02-03] MEDS: LEVOTHYROXINE 75 MCG (LEVOTHROID) TABLET PO SCH (07:01)
[2020-02-03] MEDS: RT-ALBUTEROL INHALER HFA (VENTOLIN HFA) 18 GM IH SCH ×2 (07:06→21:21)
[2020-02-03] MEDS: LINAGLIPTIN (TRADJENTA) 5 MG TABLET PO SCH (09:20)
[2020-02-03] MEDS: ZINC SULFATE 220 MG CAPSULE PO SCH (09:20)
[2020-02-03] MEDS: GABAPENTIN 100 MG (NEURONTIN) CAP PO SCH ×2 (09:20→20:42)
[2020-02-03] MEDS: ETODOLAC 300 MG (LODINE) CAP PO SCH ×2 (09:21→18:25)
[2020-02-03] MEDS: VITAMIN D3 125 MCG (5,000 UNITS) CAPSULE PO SCH (09:21)
[2020-02-03] MEDS: PROMETHAZINE/ CODEINE SYRUP 5 ML UDC PO PRN ×2 (09:29→20:42)
--- NOTE | 2020-02-03 13:26 | Progress Note - Hospitalist ---
Subjective HPI/CC On Admission Date Seen by Provider: Feb 03, 2020 Time Seen by Provider: 13:11 Pt is a 59yoCF with a PMH of NIDDMII who presented to the ER due to SOB. She was diagnosed with COVID on 01/19 after becoming symptomatic the day before. She was started on decadron and azithromycin by her PCP. When he symptoms persistent she was started on Omnicef and another z-pack. She continued to worsen and was more short of breath so decided to seek evaluation in the Er. She was found to be mildly hypoxic and admitted for further management. We discussed treatment opt ions and she declined further decadron or antibiotics as she "knows they don't work on viruses. Subjective/Events-last exam Pt reports feeling better today. Was able to get up and take a shower without getting too winded. Is having some bloody nasal discharge with nasal cannula and thought there may have been some red tinge to her stool. Objective Exam Vital Signs Vital Signs Date Time Temp Pulse Resp B/P (MAP) Pulse Ox O2 Delivery O2 Flow Rate FiO2 02/03/20 08:00 36.8 84 20 136/60 (85) 90 Room Air 02/03/20 07:06 4.00 02/01/20 17:13 28 Capillary Refill : Less Than 3 Seconds General Appearance: No Apparent Distress, Chronically ill, Obese Respiratory: Lungs Clear, No Accessory Muscle Use, Other (on 4lpm) Cardiovascular: Regular Rate, Rhythm, No Murmur Gastrointestinal: Normal Bowel Sounds, Non Tender, Soft Neurologic/Psychiatric: Alert, Oriented x3 Results/Procedures Lab Patient resulted labs reviewed. Imaging: Reviewed Imaging Report Assessment/Plan Assessment and Plan Assess & Plan/Chief Complaint Acute hypoxic respiratory failure due to COVID19 Outside of window for remdesivir Has already competed 10 day course of decadron and declines further doses due to side effects S/p 1 unit of convalescent plasma procal negative Oxygen saturation maintained on nasal cannula currently- stable on 4lpm NIDDMII Continue home meds We do not carry invokana, advised patient that she can bring in her own if she would like Add SSI Epistaxis Scant blood in noted on kleenexes, will monitor Discussed risks vs benefits and ok with continuing Lovenox for now DVT ppx: lovenox Diagnosis/Problems Diagnosis/Problems (1) Acute respiratory failure Status: Acute Qualifiers: Respiratory failure complication: hypoxia Qualified Codes: J96.01 - Acute respiratory failure with hypoxia (2) COVID-19 Status: Acute (3) Hypoxia Status: Acute (4) Non-insulin dependent type 2 diabetes mellitus Clinical Quality Measures DVT/VTE Risk/Contraindication: Risk Factor Score Per Nursin RFS Level Per Nursing on Admit: 4+=Very High JENNI GENAO MD Feb 03, 2020 13:26
[2020-02-03] MEDS: GLIMEPIRIDE 4 MG (AMARYL) TAB PO SCH (18:26)
[2020-02-03] MEDS: CATHETER FLUSH 10 ML SYR IV PRN (20:42)
[2020-02-03] MEDS: traZODone 50 MG (DESYREL) TAB PO SCH (20:42)
[2020-02-03] MEDS: PANTOPRAZOLE 40 MG (PROTONIX) TAB PO SCH (20:42)
[2020-02-04 03:55] VITALS: BP 111/56
[2020-02-04 05:07] LABS: MEAN PLATELET VOLUME 11.2 fL (9.0-12.2)
[2020-02-04 05:08] LABS: HEMOGLOBIN 12.6 g/dL (11.5-16.0)
[2020-02-04 05:24] LABS: BUN/CREATININE RATIO 17; CARBON DIOXIDE 23 MMOL/L (21-32); CHLORIDE 108 MMOL/L (98-107); CREATININE SERUM 0.66 MG/DL (0.60-1.30); GFR ESTIMATED > 60; GLUCOSE 139 MG/DL (70-105); POTASSIUM 3.6 MMOL/L (3.6-5.0); SODIUM 141 MMOL/L (135-145)
[2020-02-04] MEDS: inSUlin ASPART (NovoLOG) 1 UNIT/0.01 ML (CHARGE PER UNIT) SC SCH ×4 (05:49→21:53)
[2020-02-04] MEDS: LEVOTHYROXINE 100 MCG (LEVOTHROID) TAB PO SCH (06:11)
[2020-02-04] MEDS: ENOXAPARIN 100 MG/1 ML (LOVENOX) SYR SC SCH (06:12)
[2020-02-04] MEDS: LEVOTHYROXINE 75 MCG (LEVOTHROID) TABLET PO SCH (06:12)
[2020-02-04] MEDS: RT-ALBUTEROL INHALER HFA (VENTOLIN HFA) 18 GM IH SCH ×2 (07:28→21:07)
[2020-02-04 08:00] VITALS: BP 127/66
[2020-02-04] MEDS: ETODOLAC 300 MG (LODINE) CAP PO SCH ×2 (09:37→18:00)
[2020-02-04] MEDS: GABAPENTIN 100 MG (NEURONTIN) CAP PO SCH ×2 (09:38→21:51)
[2020-02-04] MEDS: LINAGLIPTIN (TRADJENTA) 5 MG TABLET PO SCH (09:38)
[2020-02-04] MEDS: PROMETHAZINE/ CODEINE SYRUP 5 ML UDC PO PRN ×2 (09:38→21:51)
[2020-02-04] MEDS: VITAMIN D3 125 MCG (5,000 UNITS) CAPSULE PO SCH (09:38)
[2020-02-04] MEDS: ZINC SULFATE 220 MG CAPSULE PO SCH (09:38)
[2020-02-04 12:00] VITALS: BP 132/64
--- NOTE | 2020-02-04 13:31 | Progress Note - Hospitalist ---
Subjective HPI/CC On Admission Date Seen by Provider: Feb 04, 2020 Time Seen by Provider: 13:29 Pt is a 59yoCF with a PMH of NIDDMII who presented to the ER due to SOB. She was diagnosed with COVID on 01/19 after becoming symptomatic the day before. She was started on decadron and azithromycin by her PCP. When he symptoms persistent she was started on Omnicef and another z-pack. She continued to worsen and was more short of breath so decided to seek evaluation in the Er. She was found to be mildly hypoxic and admitted for further management. We discussed treatment options and she declined further decadron or antibiotics as she "knows they don't work on viruses. Subjective/Events-last exam pt reports feeling better today. Still having some bloody nasal discharge. Objective Exam Vital Signs Vital Signs Date Time Temp Pulse Resp B/P (MAP) Pulse Ox O2 Delivery O2 Flow Rate FiO2 02/04/20 08:00 35.8 91 20 127/66 (86) 91 Room Air 02/04/20 07:28 5.00 02/01/20 17:13 28 Capillary Refill : Less Than 3 Seconds General Appearance: No Apparent Distress, Obese Respiratory: Lungs Clear, No Accessory Muscle Use, Other (on 5lpm) Cardiovascular: Regular Rate, Rhythm, No Murmur Gastrointestinal: Normal Bowel Sounds, Non Tender, Soft Neurologic/Psychiatric: Alert, Oriented x3 Results/Procedures Lab Laboratory Tests 02/04/20 04:28 Patient resulted labs reviewed. Imaging: Reviewed Imaging Report Assessment/Plan Assessment and Plan Assess & Plan/Chief Complaint Acute hypoxic respiratory failure due to COVID19 Outside of window for remdesivir Has already competed 10 day course of decadron and declines further doses due to side effects S/p 1 unit of convalescent plasma procal negative Oxygen saturation maintained on nasal cannula currently- on 5lpm- wean as able NIDDMII Continue home meds We do not carry invokana, advised patient that she can bring in her own if she would like SSI BS within goal Epistaxis Scant blood in noted on kleenexes, will monitor Decrease to 40mg Lovenox daily DVT ppx: lovenox Diagnosis/Problems Diagnosis/Problems (1) Acute respiratory failure Status: Acute Qualifiers: Respiratory failure complication: hypoxia Qualified Codes: J96.01 - Acute respiratory failure with hypoxia (2) COVID-19 Status: Acute (3) Hypoxia Status: Acute (4) Non-insulin dependent type 2 diabetes mellitus Clinical Quality Measures DVT/VTE Risk/Contraindication: Risk Factor Score Per Nursin RFS Level Per Nursing on Admit: 4+=Very High JENNI GENAO MD Feb 04, 2020 13:31
[2020-02-04 16:21] VITALS: BP 112/55
[2020-02-04] MEDS: GLIMEPIRIDE 4 MG (AMARYL) TAB PO SCH (18:00)
[2020-02-04 20:17] VITALS: BP 92/65
[2020-02-04] MEDS: PANTOPRAZOLE 40 MG (PROTONIX) TAB PO SCH (21:50)
[2020-02-04] MEDS: traZODone 50 MG (DESYREL) TAB PO SCH (21:50)
[2020-02-04] MEDS: CATHETER FLUSH 10 ML SYR IV PRN (21:51)
[2020-02-04 22:14] VITALS: BP 121/58
[2020-02-05 00:11] VITALS: BP 115/58
[2020-02-05 03:50] VITALS: BP 121/65
[2020-02-05] MEDS: inSUlin ASPART (NovoLOG) 1 UNIT/0.01 ML (CHARGE PER UNIT) SC SCH ×3 (05:49→11:57)
[2020-02-05] MEDS: LEVOTHYROXINE 100 MCG (LEVOTHROID) TAB PO SCH (06:25)
[2020-02-05] MEDS: LEVOTHYROXINE 75 MCG (LEVOTHROID) TABLET PO SCH (06:25)
[2020-02-05 08:00] VITALS: BP 118/78
[2020-02-05] MEDS ORDERED: ENOXAPARIN 40 MG/0.4 ML (LOVENOX) SYR SC SCH ×2 (09:00→21:00)
[2020-02-05] MEDS: VITAMIN D3 125 MCG (5,000 UNITS) CAPSULE PO SCH (09:02)
[2020-02-05] MEDS: ZINC SULFATE 220 MG CAPSULE PO SCH (09:02)
[2020-02-05] MEDS: ETODOLAC 300 MG (LODINE) CAP PO SCH (09:02)
[2020-02-05] MEDS: GABAPENTIN 100 MG (NEURONTIN) CAP PO SCH (09:02)
[2020-02-05] MEDS: LINAGLIPTIN (TRADJENTA) 5 MG TABLET PO SCH (09:02)
[2020-02-05] MEDS: PROMETHAZINE/ CODEINE SYRUP 5 ML UDC PO PRN (09:07)
--- NOTE | 2020-02-05 09:36 | NUR ---
Patient walked 140 feet on room air. Patient didn't require oxygen at this time. Addendum: 02/05/20 at 0936 by JOYCELYN CALLES RT Amended: Links added.
[2020-02-05] MEDS: RT-ALBUTEROL INHALER HFA (VENTOLIN HFA) 18 GM IH SCH (09:37)
--- NOTE | 2020-02-05 11:57 | NUR ---
PATIENT IS REFUSING SSI DESPITE EDUCATION. DR GENAO NOTIFIED
[2020-02-05 12:00] VITALS: BP 135/67
--- NOTE | 2020-02-05 12:29 | Discharge Inst-Simple/Standard ---
Discharge Inst-Standard Patient Instructions/Follow Up Plan of Care/Instructions/FU: Please continue to take your medications as written. Please follow up with your primary care doctor to follow up this hospital stay. Activity as Tolerated: Yes Discharge Diet: ADA Diet Return to The Hospital For: Chest pain, shortness of breath, abdominal pain, fever, confusion, if you feel you are getting worse. JENNI GENAO MD Feb 05, 2020 12:29
--- NOTE | 2020-02-05 14:53 | Discharge Summary ---
Diagnosis/Chief Complaint Date of Admission Feb 01, 2020 at 12:43 Date of Discharge Discharge Date: Feb 05, 2020 Admission Diagnosis Acute hypoxic respiratory failure Primary Care Morgan Bird DO Discharge Diagnosis (1) Acute respiratory failure Status: Acute (2) COVID-19 Status: Acute (3) Hypoxia Status: Acute (4) Non-insulin dependent type 2 diabetes mellitus Discharge Summary Discharge Physical Exam Allergies: Coded Allergies: Sulfa (Sulfonamide Antibiotics) (Verified Allergy, Severe, RASH IN MOUTH, 05/17/16) fentanyl (Verified Allergy, Intermediate, NAUSEA, 11/18/17) FEEL BAD hydrocodone (Verified Allergy, Intermediate, GI UPSET, 05/17/16) meperidine (Verified Allergy, Intermediate, GI UPSET, 05/17/16) Vitals & I&Os Vital Signs Date Time Temp Pulse Resp B/P (MAP) Pulse Ox O2 Delivery O2 Flow Rate FiO2 02/05/20 12:00 36.4 90 20 135/67 (89) 92 Room Air 02/05/20 09:05 4.00 02/01/20 17:13 28 General Appearance: No Apparent Distress, WD/WN, Obese Respiratory: Lungs Clear, No Respiratory Distress Cardiovascular: Regular Rate, Rhythm, No Murmur Neurologic/Psychiatric: Alert, Oriented x3 Hospital Course Patient was admitted duet acute hypoxic respiratory failure due to COVID19. She was treated with convalescent plasma and supplemental oxygen. She was outside of the window for Remdesivir and has already completed a course of decadron and declined more due to side effects. She did well and was able to be titrated off oxygen completely. She was discharged home in stable condition to follow up with Dr Bird to follow up this hospital stay. Labs (last 24 hrs) Patient resulted labs reviewed. Pending Labs Imaging: Reviewed Imaging Report Discussion & Recommendations Discharge Planning: >30 minutes discharge planning Discharge Home Medications: Active Scripts Active Reported Elderberry-Vit C 50-100 mg Chw (Ascorbic Acid/Elderberry Fruit) 1 Each Tab.chew 1 Each PO DAILY Zinc 50 Mg Tablet 50 Mg PO DAILY Vitamin D3 (Cholecalciferol (Vitamin D3)) 125 Mcg Tablet 125 Mcg PO DAILY Prometh-Codein 6.25-10 mg/5 ml (Promethazine HCl/Codeine) 5 Ml Syrup 10 Ml PO TID PRN Gabapentin 100 Mg Capsule 200 Mg PO BID TAKES 2 (100MG) CAPS Tramadol HCl 50 Mg Tablet 50 Mg PO BID PRN Invokana (Canagliflozin) 100 Mg Tablet 100 Mg PO DAILY Diclofenac Sodium 75 Mg Tablet.dr 75 Mg PO BID Synthroid (Levothyroxine Sodium) 175 Mcg Tablet 175 Mcg PO DAILY Januvia (Sitagliptin Phosphate) 100 Mg Tablet 100 Mg PO DAILY Trazodone HCl 50 Mg Tablet 50 Mg PO HS Glimepiride 4 Mg Tablet 8 Mg PO 1800 W/ DINNER Pantoprazole Sodium 40 Mg Tablet.dr 40 Mg PO HS Instructions to patient/family Please see electronic discharge instructions given to patient. Clinical Quality Measures DVT/VTE Risk/Contraindication: Risk Factor Score Per Nursin RFS Level Per Nursing on Admit: 4+=Very High Problem Qualifiers (1) Acute respiratory failure: Respiratory failure complication: hypoxia Qualified Codes: J96.01 - Acute respiratory failure with hypoxia JENNI GENAO MD Feb 05, 2020 14:53
== END 2020-02-05 15:45 | disposition home or self-care (01) | DRG 177 ==
LOC: EDUNIT# 11:15 → ER 11:17 → 4TH 12:43
PROVIDERS: ADMIT Family Medicine; ATTEND Family Medicine
PROC: XW13325 Transfusion of Convalescent Plasma (Nonautologous) into Peripheral Vein, Percutaneous Approach, New Technology Group 5 (ICD-10-PCS; principal; 2020-02-02)
DX: U07.1 COVID-19 (principal); J96.01 Acute respiratory failure with hypoxia; Z68.42 Body mass index [BMI] 45.0-49.9, adult; E11.9 Type 2 diabetes mellitus without complications; K21.9 Gastro-esophageal reflux disease without esophagitis; K59.09 Other constipation; K57.90 Diverticulosis of intestine, part unspecified, without perforation or abscess without bleeding; M19.90 Unspecified osteoarthritis, unspecified site; M79.7 Fibromyalgia; G89.29 Other chronic pain; E03.9 Hypothyroidism, unspecified; F32.9 Major depressive disorder, single episode, unspecified; E66.9 Obesity, unspecified; R04.0 Epistaxis; Z88.2 Allergy status to sulfonamides; Z88.5 Allergy status to narcotic agent; Z87.891 Personal history of nicotine dependence; Z73.0 Burn-out
CPT/HCPCS: 36415; 71045; 71275; 80048; 80053; 82962; 83880; 84145; 85025; 85027; 85379; 86141; 86900; 86901; 93005; 94640; 94664; 94760; 94761

== ENCOUNTER → 2021-04-17 | Outpatient (RCR) | payer OTHER ==
[~2021-04-17] MED LIST changes: +ASCO1TAB42 PO; +AZIT250T12 PO; +CEFD300C3 PO; +CHOL500044 PO; +EMPA10TA PO; +GABA-486 PO; +GBPN600T PO; +PROM5SYR PO; +PROMETH/COD; +ZINC50TA58 PO
== END | disposition home or self-care (01) ==
LOC: PREOP 05:40
PROVIDERS: ATTEND Surgery
DX: Z01.818 Encounter for other preprocedural examination (principal)

== ENCOUNTER 2021-04-24 08:10 | Day surgery (SDC) | payer BC, OTHER ==
[~2021-04-24] VITALS: Ht 170.2 cm; Wt 141.4 kg
[2021-04-24] MEDS ORDERED: LACTATED RINGERS 1,000 ML IV ONE (08:15)
[2021-04-24] MEDS ORDERED: LACTATED RINGERS 1,000 ML IV STA (08:16)
[2021-04-24] MEDS ORDERED: HURRICAINE EXT TUBE (BENZOCAINE) XX PRN (08:30)
[2021-04-24 08:40] VITALS: BP 146/72
--- NOTE | 2021-04-24 08:40 | Progress Note-Pre Operative ---
Pre-Operative Progress Note H&P Reviewed The H&P was reviewed, patient examined and no changes noted. Time Seen by Provider: 08:37 Date H&P Reviewed: Apr 24, 2021 Time H&P Reviewed: 08:37 Pre-Operative Diagnosis: Hx of polyps, Chronic Gastritis AMANDA TRIANA DO Apr 24, 2021 08:40
[2021-04-24] MEDS ORDERED: ONDANSETRON 4 MG/2 ML (SDV) Z0FRAN IV ONE (08:45)
[2021-04-24] MEDS ORDERED: PROPOFOL INJECTION 50 ML IV ONE ×2 (09:39→10:01)
[2021-04-24 10:45] VITALS: BP 111/74
[2021-04-24 10:50] VITALS: BP 118/56
--- NOTE | 2021-04-24 11:02 | Anesthesia-General Post-Op ---
MAC Patient Condition Mental Status/LOC: Same as Preop Cardiovascular: Satisfactory Nausea/Vomiting: Absent Respiratory: Satisfactory Pain: Controlled Complications: Absent Post Op Complications Complications None Follow Up Care/Instructions Patient Instructions None needed. Anesthesiology Discharge Order Discharge Order Patient is doing well, no complaints, stable vital signs, no apparent adverse anesthesia problems. No complications reported per nursing. RUKHSANA RODRIGUEZ CRNA Apr 24, 2021 11:02
--- NOTE | 2021-04-24 11:14 | Progress Note-Post Operative ---
Post-Operative Progess Note Surgeon (s)/Heel Emery Buffer (s) Surgeon AMANDA TRIANA DO Heel Emery Buffer: Adelaida Pizarro, MSIII Pre-Operative Diagnosis Hx of polyps, Chronic Gastritis Post-Operative Diagnosis Gastritis Gastric mass Gastric polyps Hiatal hernia Colon polyps diverticula internal hemmorhoids Procedure & Operative Findings Date of Procedure 04/24/21 Procedure Performed/Findings 1) EGD with bx 2) EGD with hot bx for polyp removal 3) Colonoscopy with hot bx PROCEDURE NOTE: After informed consent was obtained, the patient was brought to the endoscopy suite, placed in bed in left lateral decubitus position. She was administered IV sedation by the PROOF CLERK who then monitored vitals the entire time, heart rate, blood pressure and pulse ox and the scope was inserted down the mouth through the esophagus into the stomach. On the way down, noted some mild esophagitis, took a picture, pushed into the stomach, pushed past the antrum into the duodenum; duodenum looked good. Pulled back and noted some gastritis; did a biopsy of the antrum. Then retroflexed the scope, saw multiple gastric polyps, a mass at the GE jxn and a hiatal hernia, took a picture of all of these. Elected to do a biopsy of the mass and then use hot biopsy to remove appx 4 gastric polyps. Pulled the scope into the GE junction and did a biopsy of the GE junction. Pushed the scope back into the stomach, suctioned all the air out of the stomach. At this point pulled the scope up the esophagus and out the mouth. Switched camera, switched gloves, went down below, started the colonoscopy. Pushed all the way in to about 140 cm to get all the way to cecum. On the way in noted some diverticula and took a picture of them. Once in the cecum took a picture of the appendiceal orifice and noted the ileocecal valve. Then slowly withdrew the scope, insufflating to look circumferentially at the bull starting in the cecum, up the ascending colon to the hepatic flexure, then down the transverse colon. I saw a small flat polyp in the transverse colon and elected to do a hot biopsy of it. Continued to the splenic flexure, into the descending colon where I found another polyp and did another hot biopsy. Down into the sigmoid, found another polyp and did another hot biopsy. Finally into the rectum, retroflexed in the rectal vault and saw another small polyp and some minimal internal hemorrhoids and took a picture of this. Took the last polyp with hot biopsy as well. Unfortunately throughout the colon there was a moderate amount of fecal liquid and large fecal pieces. This finding plus the polyps, would warrant a repeat colonoscopy in three years. The patient tolerated the procedure and she recovered in the endoscopy suite. Anesthesia Type IV sedation by PROOF CLERK Estimated Blood Loss Estimated blood loss (mL): scant Specimens/Packing Specimens Removed antral bx mass near GE jxn gastric polyps GE jxn bx Transverse, descending, sigmoid and rectal polyps AMANDA TRIANA DO Apr 24, 2021 11:14
--- NOTE | 2021-04-24 11:16 | Endoscopy Discharge Instruct ---
Endo Procedure/Findings Findings 1.: Hiatal Hernia, Other Findings (??Gastric mass) 2.: Gastritis 3.: Polyp, Other Findings (Multiple gastric polyps) 4.: Diverticulosis, Internal Hemorrhoids Discharge Instructions - Activity: You might feel a little sleepy until tomorrow. This is due to the medicine you received to relax you. Until tomorrow, you should: NOT drive a car, operate machinery or power tools. NOT drink any alcoholic beverages. NOT make any important decisions or sign importortant papers. Do not return to work until tomorrow, unless otherwise instructed. Resume previous activities tomorrow. Diet: Start by taking liquids. If you tolerate liquids, advance to solid food. 1.: EGD in 1 year 2.: Colonscopy in 3 years Notify Physician - If you experience excessive bleeding, unusual abdominal pain, fever, or chest pain, contact your doctor immediately. AMANDA TRIANA DO Apr 24, 2021 11:16
[2021-04-24 11:33] VITALS: BP 145/68
== END 2021-04-24 11:43 | disposition home or self-care (01) ==
LOC: ENDO 08:10
PROVIDERS: ATTEND Surgery
DX: K29.50 Unspecified chronic gastritis without bleeding (principal); K31.7 Polyp of stomach and duodenum; K63.5 Polyp of colon; K62.1 Rectal polyp; K44.9 Diaphragmatic hernia without obstruction or gangrene; K57.30 Diverticulosis of large intestine without perforation or abscess without bleeding; K59.00 Constipation, unspecified; K21.00 Gastro-esophageal reflux disease with esophagitis, without bleeding; K64.8 Other hemorrhoids; E66.01 Morbid (severe) obesity due to excess calories; Z68.42 Body mass index [BMI] 45.0-49.9, adult; Z87.891 Personal history of nicotine dependence
CPT/HCPCS: 82947

== ENCOUNTER → 2021-08-18 | Outpatient (CLI) | payer OTHER ==
--- NOTE | 2021-08-18 09:25 | Diagnostic Imaging Report ---
EXAMINATION: Chest 2 view HISTORY: Cough. COMPARISON: 02/01/2020 FINDINGS: The lungs are clear without edema or pneumonia. No pleural effusion or pneumothorax. Heart size is normal. IMPRESSION: 1. Clear lungs. Dictated by: Dictated on workstation # [id number]
== END ==
LOC: RAD 08:42
PROVIDERS: ATTEND Family Medicine
DX: R05.9 Cough, unspecified (principal)
CPT/HCPCS: 71046

== ENCOUNTER 2021-09-12 08:42 | Emergency (ER) | payer OTHER ==
[~2021-09-12] VITALS: Ht 170 cm; Wt 140.6 kg
[2021-09-12] MEDS ORDERED: oxyCODONE/APAP 5/325MG (PERCOCET 5) TABLET PO ONE (09:45)
--- NOTE | 2021-09-12 09:50 | ED Lower Extremity ---
General Chief Complaint: Lower Extremity Stated Complaint: R KNEE PAIN Nursing Triage Note: pt presents to ed via pov from home with complaints of r knee pain after working a 12 hour shift last night. pt states her knee has been bothering her on and off for aprox 12 days but worse since last night. pt denies any known injury. Source: patient Exam Limitations: no limitations History of Present Illness Date Seen by Provider: Sep 12, 2021 Time Seen by Provider: 09:32 Initial Comments Here with complaint of right knee pain that has been worse over the last 2 weeks but more significantly worse last night. She has tried her typical medicine and tramadol and diclofenac and that is not helping. She has been wearing her knee brace without improvement. 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 That has not helped the pain either. She has had problems with the knee previously with possible meniscus issues. She follows with Dr. BAIN. Onset: other (2 weeks) Severity: moderate Pain/Injury Location: right knee Method of Injury: unknown Modifying Factors: Worse With Movement, Worse With Other (Walking is much worse) Allergies and Home Medications Allergies Coded Allergies: Sulfa (Sulfonamide Antibiotics) (Verified Allergy, Severe, RASH IN MOUTH, 05/17/16) fentanyl (Verified Allergy, Intermediate, NAUSEA, 11/18/17) FEEL BAD hydrocodone (Verified Allergy, Intermediate, GI UPSET, 05/17/16) meperidine (Verified Allergy, Intermediate, GI UPSET, 05/17/16) Patient Home Medication List Home Medication List Reviewed: Yes Diclofenac Sodium (Diclofenac Sodium) 75 Mg Tablet.dr, 75 MG PO BID, (Reported) Entered as Reported by: JEMAL NINA on 11/17/18 1449 Empagliflozin (Jardiance) 10 Mg Tablet, 10 MG PO DAILY, (Reported) Entered as Reported by: JUANI NELSON on 04/18/21 1222 Gabapentin (Gabapentin) 600 Mg Tablet, 600 MG PO BID, (Reported) Entered as Reported by: JUANI NELSON on 04/18/21 1222 Glimepiride (Glimepiride) 4 Mg Tablet, 8 MG PO 1800 W/ DINNER, (Reported) Entered as Reported by: EMERSON VEE on 11/18/17 1014 Levothyroxine Sodium (Synthroid) 175 Mcg Tablet, 175 MCG PO DAILY, (Reported) Entered as Reported by: JEMAL NINA on 11/17/18 1449 Oxycodone HCl/Acetaminophen (Oxycodone-Acetaminophen 5-325) 5 Mg-325 Mg Tablet, 1 EACH PO Q4H PRN for PAIN-MODERATE Prescribed by: FREDERIC SEALS on 09/12/21 1034 Pantoprazole Sodium (Pantoprazole Sodium) 40 Mg Tablet.dr, 40 MG PO HS, (Reported) Entered as Reported by: JEMAL NINA on 06/01/15 1415 Sitagliptin Phosphate (Januvia) 100 Mg Tablet, 100 MG PO DAILY, (Reported) Entered as Reported by: EMERSON VEE on 11/18/17 1014 Tramadol HCl (Tramadol HCl) 50 Mg Tablet, 50 MG PO BID PRN for PAIN-MODERATE, (Reported) Entered as Reported by: JEMAL NINA on 11/17/18 1449 Trazodone HCl (Trazodone HCl) 50 Mg Tablet, 50 MG PO HS, (Reported) Entered as Reported by: EMERSON VEE on 11/18/17 1014 Review of Systems Constitutional: No chills, No fever Respiratory: No cough, No short of breath Cardiovascular: no symptoms reported Musculoskeletal: joint pain, joint swelling Skin: No change in color, No lesions Psychiatric/Neurological: Denies Numbness, Denies Tingling Past Nxjnplk-Pyamnb-Xznosk Hx Patient Social History Tobacco Use?: No Smoking Status: Former Smoker Substance use?: No Alcohol Use?: Yes Alcohol Frequency: Once in a while Pt feels they are or have been: No Immunizations Up To Date Tetanus Booster (TDap): Unknown First/Initial COVID19 Vaccinat: FEBRUARY 2020- REACTION Second COVID19 Vaccination Alvarado: NO Third COVID19 Vaccination Date: NO Seasonal Allergies Seasonal Allergies: No Past Medical History Surgery/Hospitalization HX: pmh: dm, gerd, hypothyroidism, chronic pain Surgeries: Yes (ORAL SURGERY FOR JAW FX; L KNEE SCOPE; HYST/OVARIES INTACT) Gallbladder, Hysterectomy, Orthopedic, Tonsillectomy, 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 Respiratory: Yes Sleep Apnea Currently Using CPAP: Yes Cardiac: Yes (TACHYCARDIA) Palpitations Neurological: No Reproductive Disorders: No 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, 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 Sexually Transmitted Disease: No HIV/AIDS: No Genitourinary: Yes Bladder Infection, UTI-Chronic Gastrointestinal: Yes (HX ILEUS/SBO--NO SURGERY) Gastroesophageal Reflux, Chronic Constipation, Diverticulosis, Polyps Musculoskeletal: Yes ("MUSCLE PAIN ALL OVER" ; CHRONIC KNEE AND BACK PAIN) Degenerate Disk Disease, Arthritis, Fibromyalgia, Chronic Back Pain Endocrine: Yes (OBESITY) Hypothyroidsim, Diabetes, Non-Insulin dep HEENT: No Loss of Vision: Bilateral Hearing Impairment: Denies Cancer: No Psychosocial: Yes Depression Integumentary: Yes (RASH/ACNE UNDER ARMS AND BREAST) Blood Disorders: No Adverse Reaction/Blood Tranf: No Family Medical History Reviewed Nursing Family Hx Alcoholism 09 BROTHER, Onset:Unknown Cancer 03 FATHER, Onset:Unknown 09 BROTHER, Onset:Unknown Cataract 03 MOTHER, Onset:Unknown Congestive heart failure 03 MOTHER, Onset:Unknown Family history: Diabetes mellitus 03 FATHER, Onset:Unknown 03 MOTHER, Onset:Unknown Family history: Thyroid disorder 03 MOTHER, Onset:Unknown Heart disease 03 FATHER, Onset:Unknown History of drug abuse 09 BROTHER, Onset:Unknown Cancer, CAD Over 55 Years Old, Diabetes Physical Exam Vital Signs Vital Signs - First Documented 09/12/21 09:14 Temp 35.8 Pulse 79 Resp 16 B/P (MAP) 142/68 (92) Pulse Ox 95 Capillary Refill : Less Than 3 Seconds Height, Weight, BMI Height: 5'6.00" Weight: 299lbs. 3.0oz. 135.084688yg; 48.00 BMI Method:Stated General Appearance: WD/WN, mild distress (Knee pain) Cardiovascular: regular rate, rhythm, no murmur Respiratory: lungs clear, normal breath sounds Knees: right knee joint effusion, right knee soft tissue tenderness, right knee swelling Neurologic/Tendon: normal sensation, normal motor functions Neurologic/Psychiatric: alert, oriented x 3 Skin: warm/dry, rash (Mild erythema outlining the edge of the knee brace on the right knee) Progress/Results/Core Measures Results/Orders My Orders Orders - FREDERIC SEALS MD Oxycodone/Apap 5/325mg Tablet (Percocet (09/12/21 09:45) Knee, Right, 3 Views (09/12/21 09:32) Medications Given in ED Current Medications Medications Dose Ordered Sig/Donell Route Start Time Stop Time Status Last Admin Dose Admin Oxycodone/ Acetaminophen 1 tab ONCE ONCE PO 09/12/21 09:45 09/12/21 09:46 DC 09/12/21 09:55 1 TAB Vital Signs/I&O 09/12/21 09:14 Temp 35.8 Pulse 79 Resp 16 B/P (MAP) 142/68 (92) Pulse Ox 95 Blood Pressure Mean: 92 Progress Progress Note : Progress Note Seen and evaluated. X-ray right knee ordered. Percocet 5/325 1 tab p.o. given. Monitor patient. Diagnostic Imaging Diagonstic Imaging: Xray Plain Films/CT/US/NM/MRI: knee Comments [facility], [place] NAME: [facility] REC#: [id number] PT STATUS: REG ER : 1960 PHYSICIAN: FREDERIC SEALS MD ADMIT DATE: 09/12/21/ER Draft Date of Exam:09/12/21 KNEE, RIGHT, 3 VIEWS INDICATION: Knee pain COMPARISON: None available. TECHNIQUE: 3 radiographs of the right knee dated 09/13/2019 FINDINGS: No acute fracture or dislocation. No destructive osseous process. Moderate medial joint space narrowing. The lateral compartment is well maintained. Minimal osteophytosis. No knee joint effusion. No suspicious radiopaque foreign body. IMPRESSION: No acute osseous abnormality, There is mild to moderate degenerative changes, greatest within the medial compartment. Dictated on workstation # [id number] Dict: 09/12/21 1024 Trans: 09/12/21 1031 [facility] [id number] Interpreted by: VERNON PARKS MD Electronically signed by: Reviewed: Reviewed by Me Departure Impression Primary Impression: Internal derangement of right knee Disposition: 01 HOME, SELF-CARE Condition: Stable Departure-Patient Inst. Decision time for Depature: 10:32 Referrals: BETH BAIN DO (PCP/Family) Primary Care Physician JONY ROONEY MD, MICHAEL P MD Patient Instructions: Internal Derangement of the Knee (DC), Knee Pain (DC) Add. Discharge Instructions: All discharge instructions reviewed with patient and/or family. Voiced understanding. You may continue to use your knee brace as needed. Otherwise rest and elevate the leg to reduce swelling. You may use ice packs 20 minutes/h as needed to reduce swelling or pain. Is very important that you follow-up with one of the orthopedist listed or your primary care doctor for further evaluation and as you may need further work done to reduce your pain. Take medications as directed. Return for worse pain, swelling, weakness, numbness or other concerns as needed. Scripts Oxycodone HCl/Acetaminophen (Oxycodone-Acetaminophen 5-325) 5 Mg-325 Mg Tablet 1 EACH PO Q4H PRN for PAIN-MODERATE MDD 6 for 3 Days, #10 TAB 0 Refills Prov: FREDERIC SEALS MD 09/12/21 Work/School Note: Work Release Form Date Seen in the Emergency Department: Sep 12, 2021 Return to Work: Sep 16, 2021 Restrictions: No Restrictions FREDERIC SEALS MD Sep 12, 2021 09:50
--- NOTE | 2021-09-12 10:31 | Diagnostic Imaging Report ---
INDICATION: Knee pain COMPARISON: None available. TECHNIQUE: 3 radiographs of the right knee dated 09/13/2019 FINDINGS: No acute fracture or dislocation. No destructive osseous process. Moderate medial joint space narrowing. The lateral compartment is well maintained. Minimal osteophytosis. No knee joint effusion. No suspicious radiopaque foreign body. IMPRESSION: No acute osseous abnormality, There is mild to moderate degenerative changes, greatest within the medial compartment. Dictated by: Dictated on workstation # [id number]
[2021-09-12] MEDS ORDERED: OXYC1TAB11 PO (10:33)
[2021-09-12 11:03] VITALS: BP 142/68
== END 2021-09-12 11:03 | disposition home or self-care (01) ==
LOC: EDUNIT# 08:42 → ER 08:44
DX: M23.91 Unspecified internal derangement of right knee (principal); G47.30 Sleep apnea, unspecified; E66.9 Obesity, unspecified; Z87.891 Personal history of nicotine dependence; Z68.42 Body mass index [BMI] 45.0-49.9, adult; Z99.89 Dependence on other enabling machines and devices; Z28.311 Partially vaccinated for COVID-19
CPT/HCPCS: 73562

== ENCOUNTER 2021-12-20 05:52 | Outpatient (CLI) | payer OTHER ==
[~2021-12-20] VITALS: Ht 167.7 cm; Wt 140.9 kg
[~2021-12-20 05:52] MED LIST changes: +OXYC1TAB11 PO
[2021-12-20] MEDS ORDERED: MELO15TA39 PO (16:43)
== END 2021-12-20 16:45 | disposition home or self-care (01) ==
LOC: PREOP 05:52
PROVIDERS: ATTEND Orthopaedic Surgery
DX: Z01.818 Encounter for other preprocedural examination (principal)

== ENCOUNTER 2021-12-27 10:04 | Day surgery (SDC) | payer OTHER ==
--- NOTE | 2021-12-18 10:46 | HISTORY AND PHYSICAL ---
DATE OF SERVICE: This will be for outpatient surgery on 12/27/2021 for right knee arthroscopy. HISTORY OF PRESENT ILLNESS: The patient is a 61-year-old female with complaints of progressively worsening right knee pain, catching, locking and swelling. She has undergone treatment with injections with good relief of her symptoms, but only temporarily. She reports continued mechanical symptoms and functional impairment. Radiographs do reveal some moderate degenerative changes medially. She complained of pain primarily on the medial aspect of her knee. Due to functional impairment and failure to improve with conservative measures, the patient elected to proceed with surgical intervention. REVIEW OF SYSTEMS: No chest pain, no shortness of breath, no dysuria. PAST MEDICAL HISTORY: Diabetes, hypothyroidism, sleep apnea. PAST SURGICAL HISTORY: Cholecystectomy, hysterectomy, tonsillectomy, right knee arthroscopy. PRIMARY CARE PROVIDER: Dr. Bird. MEDICATIONS: Pantoprazole, Amaryl, tramadol, meloxicam, gabapentin, Jardiance, Januvia, levothyroxine, trazodone. ALLERGIES: No known drug allergies. SOCIAL HISTORY: The patient denies alcohol and tobacco use. PHYSICAL EXAMINATION: GENERAL: The patient is well-developed, well-nourished, in no acute distress. HEENT: Normocephalic, atraumatic. Pupils are equal, round and reactive to light. Oropharynx is clear. NECK: Supple, no lymphadenopathy. LUNGS: Clear to auscultation bilaterally. HEART: Regular rate and rhythm. ABDOMEN: Soft, nontender, nondistended. EXTREMITIES: The right knee demonstrates a moderate effusion. She is tender along the medial joint line. She has pain medially with Milad's. She has patellofemoral crepitus and pain with patellar loading. She has a large popliteal cyst noted. No pain with hip range of motion. Negative straight leg raise. Active range of motion of the knee is 0/2/130. IMPRESSION: Right knee medial meniscus tear with associated chondromalacia. PLAN: Right knee arthroscopy with partial medial meniscectomy and chondroplasty. The risks, benefits, options, ramifications and recovery have been discussed at length with the patient. She understands and wishes to proceed. Job ID: [id number] DocumentID: [id number] Dictated Date: 12/18/2021 09:31:23 Spot Welder Body Assembly Date: 12/18/2021 10:45:32 Dictated By: TYLER SWANN MD
[2021-12-27] VITALS (10 sets, daily range): BP systolic 118–142; BP diastolic 75–87
[~2021-12-27] VITALS: Ht 167.7 cm; Wt 140.9 kg
[~2021-12-27 10:04] MED LIST changes: +MELO15TA39 PO
--- NOTE | 2021-12-27 10:43 | Progress Note-Pre Operative ---
Pre-Operative Progress Note Date of Available H&P: Dec 18, 2021 Date H&P Reviewed: Dec 27, 2021 Time H&P Reviewed: 07:11 Changes from last HP none Pre-Operative Diagnosis: right medial meniscus tear and chondromalacia TYLER SWANN MD Dec 27, 2021 10:43
--- NOTE | 2021-12-27 10:44 | Progress Note-Post Operative ---
Post-Operative Progess Note Surgeon (s)/Timber Inspector (s) Surgeon TYLER SWANN MD Timber Inspector: Inocente Bentley Pre-Operative Diagnosis right medial meniscus tear and chondromalacia Post-Operative Diagnosis right medial and lateral meniscus tears and chondromalacia of the medial and lateral femoral condyles and patella Procedure & Operative Findings Date of Procedure 12/27/21 Procedure Performed/Findings right knee arthroscopic partial medial and lateral meniscectomies and chondr oplasty of the medial and lateral femoral condyles and patella Anesthesia Type GETA Estimated Blood Loss Estimated blood loss (mL): minimal Specimens/Packing Specimens Removed none Packing: none TYLER SWANN MD Dec 27, 2021 10:44
[2021-12-27] MEDS ORDERED: LACTATED RINGERS 1,000 ML IV PRN (10:45)
[2021-12-27] MEDS ORDERED: ceFAZolin INJECTION 2,000 MG in NS (IVPB) 50 ML IV ONE (10:45)
[2021-12-27] MEDS ORDERED: oxyCODONE/APAP 5/325MG (PERCOCET 5) TABLET PO PRN (10:45)
[2021-12-27] MEDS ORDERED: OXYC1TAB87 PO (10:46)
[2021-12-27] MEDS ORDERED: morphine PF (DURAMORPH) 10 MG/10 ML AMP ONE (10:51)
[2021-12-27] MEDS ORDERED: BUPIVACAINE 0.25% 30 ML (SENSORCAINE) VIAL ONE (10:52)
[2021-12-27] MEDS ORDERED: proPOfol 200 MG/20 ML (DIPRIVAN) VIAL IV ONE (10:52)
[2021-12-27] MEDS ORDERED: ONDANSETRON 4 MG/2 ML (SDV) Z0FRAN ONE ×2 (10:52→11:16)
[2021-12-27] MEDS ORDERED: MIDAZOLAM 2 MG/2 ML (VERSED) VIAL ONE (10:52)
[2021-12-27] MEDS ORDERED: LIDOCAINE PF 2% 5 ML (XYLOCAINE) VIAL ONE (10:52)
[2021-12-27] MEDS ORDERED: fentaNYL INJ 100 MCG/2 ML AMP ONE (10:52)
[2021-12-27] MEDS ORDERED: FAMOTIDINE 20MG/2ML IV (PEPCID) IV ONE (11:15)
[2021-12-27] MEDS ORDERED: SCOPOLAMINE 1.5 MG (TRANSDERM-SCOP) PATCH TOP ONE (11:15)
[2021-12-27] MEDS ORDERED: ONDANSETRON 4 MG/2 ML (SDV) Z0FRAN IV ONE (11:15)
[2021-12-27] MEDS ORDERED: SCOPOLAMINE 1.5 MG (TRANSDERM-SCOP) PATCH ONE (11:16)
[2021-12-27] MEDS ORDERED: FAMOTIDINE 20MG/2ML IV (PEPCID) ONE (11:17)
[2021-12-27] MEDS ORDERED: SEVOFLURANE (ULTANE) 15 ML INHAL SOLN ONE (11:53)
--- NOTE | 2021-12-27 12:09 | Anesthesia-General Post-Op ---
General Patient Condition Mental Status/LOC: Same as Preop Cardiovascular: Satisfactory Nausea/Vomiting: Absent Respiratory: Satisfactory Pain: Controlled Complications: Absent Post Op Complications Complications None Follow Up Care/Instructions Patient Instructions None needed. Anesthesia/Patient Condition Patient Condition Patient is doing well, no complaints, stable vital signs, no apparent adverse anesthesia problems. No complications reported per nursing. POLLY WEINSTEIN CRNA Dec 27, 2021 12:09
[2021-12-27] MEDS ORDERED: ONDANSETRON 4 MG/2 ML (SDV) Z0FRAN IVP PRN (12:15)
[2021-12-27] MEDS ORDERED: morphine INJ 10 MG/ML 1ML (SYR OR VIAL) IVP ONE (12:15)
[2021-12-27] MEDS ORDERED: fentaNYL INJ 100 MCG/2 ML AMP IVP ONE (12:15)
--- NOTE | 2021-12-27 14:02 | Physical Therapy Ortho Eval ---
PT Orthopedic Evaluation Type of Surgery Knee Scope right side WBAT Prior Level of Function Current Living Status: Spouse Locomotion (Upon Admit): Independent Subjective Subjective Patient in bed pre tx, agrees to PT, has no complaints of pain, states she is a little woozy. Entry Into Home: Level Entry Motor Control Motor Control: Motor Control WNL ROM right knee flexion 80 degrees, has full extension Transfer SCALE: Activities may be completed with or without assistive devices. 2-Wuchurvjqo-zfmkggy completes the activity by him/herself with no assistance from a helper. 5-Set-up or Clean-up Assistance-helper sets up or cleans up; patient completes activity. [place] assists only prior to or following the activity. 4-Supervision or Touching Assistance-helper provides verbal cues and/or touching/steadying and/or contact guard assistance as patient completes activity. Assistance may be provided throughout the activity or intermittently. 3-Partial/Moderate Assistance-helper does LESS THAN HALF the effort. [place] lifts, holds or supports trunk or limbs, but provides less than half the effort. 2-Substantial/Maximal Assistance-helper does MORE THAN HALF the effort. [place] lifts or holds trunk or limbs and provides more than half the effort. 7-Mmghqjuuu-qbgyiw does ALL the effort. Patient does none of the effort to complete the activity. Or, the assistance of 2 or more helpers is required for the patient to complete the activity. If activity was not attempted, code reason: 7-Patient Refused. 9-Not Applicable-not attempted and the patient did not perform the activity before the current illness, exacerbation or injury. 10-Not Attempted due to Environmental Limitations-(lack of equipment, weather restraints, etc.). 88-Not Attempted due to Medical Conditions or Safety Concerns. Transfers (B, C, W/C) (QC): 4 Gait Summary/Comments Patient ambulated 50' with a rolling walker with CGA, slow ambulation, needs occasional standing rest breaks, patient didn't want to attempt stairs since she doesn't have any at home. Treatment Rendered Treatment: Therapeutic Exercises, Gait Train Exercise Instruction: Quad Sets, Heel Slides, Ankle Pumps Assessment/Goals Goal Time Frame: 1 Visit Understands HEP: Yes Safe Ambulation: Yes Plan Treatment Plan: Discharge PT/Family Agrees to Plan: Yes Time Time In: 1307 Time Out: 1325 Total Billed Treatment Time: 18 Billed Treatment Time 1 visit EVL 18' YVONNE ESCOBAR PT Dec 27, 2021 14:02
--- NOTE | 2021-12-27 22:06 | OPERATIVE REPORT ---
DATE OF SERVICE: 12/27/2021 PREOPERATIVE DIAGNOSES: 1. Right knee medial meniscus tear. 2. Right knee lateral meniscus tear. 3. 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 POSTOPERATIVE DIAGNOSES: 1. Right knee medial meniscus tear. 2. Right knee lateral meniscus tear. 3. 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 4. Right knee chondromalacia of lateral femoral condyle. 5. Right knee chondromalacia of the patella. PROCEDURES: 1. Right knee arthroscopic partial medial meniscectomy. 2. Right knee arthroscopic partial lateral meniscectomy. 3. Right knee arthroscopic chondroplasty of medial femoral condyle. 4. Right knee arthroscopic chondroplasty of lateral femoral condyle. 5. Right knee arthroscopic chondroplasty of the patella. SURGEON: Simon Swann MD INCIDENT HANDLER: Inocente Bentley, who assisted throughout the procedure and closed the incisions. ANESTHESIA: General endotracheal by Arina Case CRNA. TOURNIQUET TIME: Not applicable. ESTIMATED BLOOD LOSS: Minimal. DRAINS: None. COMPLICATIONS: None. POSTOPERATIVE PLAN: Routine knee arthroscopy protocol. The patient was transported to the recovery room awake and in stable condition. STATEMENT OF MEDICAL NECESSITY: The patient is a 61-year-old female with complaints of right medial knee pain, catching, locking and swelling. She also complained of anterior pain, catching, locking and swelling. She had tried rest, activity modifications and injections without relief. Due to functional impairment and failure to improve with conservative measures, the patient elected to proceed with surgical intervention. Examination under anesthesia revealed range of motion of 0/0/130 with negative Sonya, negative anterior and posterior drawer. No varus or valgus laxity and negative pivot shift. ARTHROSCOPIC FINDINGS: The patella demonstrated grade 2 chondral flap centrally in 10 x 10 area. The trochlea demonstrated grade 1 chondral softening superiorly with no unstable chondral flaps. Medial and lateral gutters were clear. The ACL and PCL were intact. The lateral compartment demonstrated a tear of the posterior horn of the lateral meniscus involving approximately one-third of the posterior horn. There were grade 2 chondral flaps of the central portion of the femoral condyle laterally in a 10 x 10 area. The medial compartment demonstrated a medial meniscus tear involving the body and posterior horn of the medial meniscus approximately one-third of the meniscus in these areas and grade 2 chondral flaps of the central portion of the femoral condyle in a 10 x 10 area. DESCRIPTION OF PROCEDURE: After risks and benefits of the procedure were discussed and questions were answered, informed consent was signed and placed on the chart. The operative site was confirmed in the preoperative holding area initialed by the surgeon. The patient was then transported to the operating room. After adequate levels of general endotracheal anesthetic was obtained, a timeout was called confirming the operative sites. The right lower extremity was prepped and draped in the usual sterile fashion. Knee joint was injected with 60 mL fluid. A standard inferolateral portal was placed with the arthroscope under direct visualization, an inferior medial portal was created. The meniscus was carefully probed with the above findings noted. The unstable chondral flaps on the patella were debrided with the shaver back to a stable edge. The scope was then redirected in the lateral compartment and subchondral collapse of the lateral femoral condyle were debrided with a shaver back to a stable edge and the lateral meniscus tear was debrided with a shaver back to a stable edge. This was carefully probed. No further tearing or instability noted. The scope was then redirected into the medial compartment. The unstable chondral flaps on the medial femoral condyle were debrided with a shaver back to a stable edge and the medial meniscus tear was debrided with a shaver back to a stable edge. This was carefully probed with no further tearing or instability noted. The knee was copiously irrigated. Port sites were closed with 4-0 nylon in simple interrupted fashion. Knee was injected with Duramorph. The port sites were infiltrated with plain Marcaine. A sterile dressing was applied. The patient was transferred to the recovery room awake and stable condition. Job ID: [id number] DocumentID: [id number] Dictated Date: 12/27/2021 12:08:39 Venture Capitalist Date: 12/27/2021 22:03:00 Dictated By: SIMON SWANN MD
== END 2021-12-27 13:37 | disposition home or self-care (01) ==
LOC: SDC 10:04
PROVIDERS: ATTEND Orthopaedic Surgery
DX: S83.281A Other tear of lateral meniscus, current injury, right knee, initial encounter (principal); M94.261 Chondromalacia, right knee; E66.01 Morbid (severe) obesity due to excess calories; Z68.43 Body mass index [BMI] 50.0-59.9, adult; Z87.891 Personal history of nicotine dependence
CPT/HCPCS: 82947; 87081

== ENCOUNTER 2022-01-28 09:17 | Emergency (ER) | payer OTHER ==
[~2022-01-28] VITALS: Ht 170 cm; Wt 136.0 kg
--- NOTE | 2022-01-28 10:00 | ED Cough/URI ---
General Chief Complaint: Cough/Cold/Flu Symptoms Stated Complaint: FEVER/COUGH/BODYACHES Nursing Triage Note: PT STATES HAS BEEN SICK SINCE SATURDAY LAST WEEK, PT HAS HAD FEVER LAST WEEK. PT STATES HAS PERSISTANT COUGH. STARTED Z-PACK YEST AFTERNOON. (MALIA HUGHES) History of Present Illness Date Seen by Provider: Jan 28, 2022 Time Seen by Provider: 09:40 Initial Comments 61 yo female with pmhx of T2DM and hypothyroidism presents to ED with complaint of nonproductive cough since last Saturday. Pt says she started feeling sick on Saturday and her sx have not gotten better. Has associated subjective fever, body aches, fatigue, nasal congestion, rib pain, chest pain from coughing and SOB when coughing. 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 She has not gotten flu shot and only received first COVID vaccine due to adverse reaction. She called in a Z-pack that she had from the last time she was sick had took the first two doses with no relief of sx. Denies any N/V/D, lightheadedness/dizziness, ear pain, sore throat. (MALIA HUGHES) Allergies and Home Medications Allergies Coded Allergies: Sulfa (Sulfonamide Antibiotics) (Verified Allergy, Severe, RASH IN MOUTH, 12/20/21) fentanyl (Verified Adverse Reaction, Intermediate, NAUSEA, 12/27/21) FEEL BAD hydrocodone (Verified Adverse Reaction, Intermediate, GI UPSET, 12/27/21) meperidine (Verified Adverse Reaction, Intermediate, GI UPSET, 12/27/21) Patient Home Medication List Home Medication List Reviewed: Yes (MALIA HUGHES) Home Medication List Reviewed: Yes (KYUNG WRIGHT MD) Empagliflozin (Jardiance) 10 Mg Tablet, 10 MG PO DAILY, (Reported) Entered as Reported by: JUANI NELSON on 04/18/21 1222 Gabapentin (Gabapentin) 600 Mg Tablet, 600 MG PO BID, (Reported) Entered as Reported by: JUANI NELSON on 04/18/21 1222 Glimepiride (Glimepiride) 4 Mg Tablet, 8 MG PO 1800 W/ DINNER, (Reported) Entered as Reported by: EMERSON VEE on 11/18/17 1014 Levothyroxine Sodium (Synthroid) 175 Mcg Tablet, 175 MCG PO DAILY, (Reported) Entered as Reported by: JEMAL NINA on 11/17/18 1449 Meloxicam (Meloxicam) 15 Mg Tablet, 15 MG PO DAILY, (Reported) Entered as Reported by: BAN WEI on 12/20/21 1643 Oxycodone HCl/Acetaminophen (Percocet 5-325 mg Tablet) 1 Each Tablet, 1 TAB PO Q 4H Prescribed by: ALBERT BOWER on 12/27/21 1047 Promethazine/Phenyleph/Codeine (Promethazine Vc-Codeine Soln) 6.25 Mg-5 Mg-10 Mg/5 Ml Syrup, 10 ML PO Q8H PRN for cough Prescribed by: KYUNG WRIGHT on 01/28/22 1021 Sitagliptin Phosphate (Januvia) 100 Mg Tablet, 100 MG PO DAILY, (Reported) Entered as Reported by: EMERSON VEE on 11/18/17 1014 Tramadol HCl (Tramadol HCl) 50 Mg Tablet, 50 MG PO BID PRN for PAIN-MODERATE, (Reported) Entered as Reported by: JEMAL NINA on 11/17/18 1449 Trazodone HCl (Trazodone HCl) 50 Mg Tablet, 50 MG PO HS, (Reported) Entered as Reported by: EMERSON VEE on 11/18/17 1014 Review of Systems Review of Systems Constitutional: chills, fever, malaise EENTM: nose congestion; No ear discharge, No hearing loss, No ear pain, No throat pain, No throat swelling Respiratory: cough, short of breath, wheezing Cardiovascular: chest pain; No Hx of Intervention, No palpitations, No syncope Gastrointestinal: no symptoms reported Genitourinary: no symptoms reported Musculoskeletal: muscle pain (left sided rib pain) Skin: no symptoms reported Psychiatric/Neurological: No Symptoms Reported Hematologic/Lymphatic: No Symptoms Reported Immunological/Allergic: no symptoms reported (MALIA HUGHES) Past Ckewqqn-Pwhlgz-Ljtrwn Hx Patient Social History Tobacco Use?: No Smoking Status: Former Smoker Substance use?: No Alcohol Use?: Yes Alcohol type: Beer Alcohol Frequency: Once in a while Pt feels they are or have been: No (MALIA HUGHES) Immunizations Up To Date Tetanus Booster (TDap): Unknown Influenza Vaccine Up-to-Date: No; Not Current First/Initial COVID19 Vaccinat: YES Second COVID19 Vaccination [place]varado: FEBRUARY 2020- REACTION red and raised Third COVID19 Vaccination Date: FEBRUARY 2020- REACTION red and raised (MALIA HUGHES) Seasonal Allergies Seasonal Allergies: Yes (MALIA HUGHES) Past Medical History Surgery/Hospitalization HX: DIABETES,THYROID MEDS HX SURG TUBAL HYST GB, ARTHROSCOPY R KNEE Surgeries: Yes (ORAL SURGERY FOR JAW FX; L KNEE SCOPE; HYST/OVARIES INTACT, heart cath) Gallbladder, Hysterectomy, Orthopedic, Tonsillectomy, 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 Respiratory: Yes (chronic cough) Sleep Apnea Currently Using CPAP: Yes Currently Using BIPAP: No Cardiac: Yes (TACHYCARDIA) Palpitations Neurological: No Reproductive Disorders: No 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, 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, Menopausal Sexually Transmitted Disease: No HIV/AIDS: No Genitourinary: Yes Bladder Infection, UTI-Chronic Gastrointestinal: Yes (HX ILEUS/SBO--NO SURGERY) Gastroesophageal Reflux, Chronic Constipation, Diverticulosis, Polyps Musculoskeletal: Yes ("MUSCLE PAIN ALL OVER" ; CHRONIC KNEE AND BACK PAIN) Degenerate Disk Disease, Arthritis, Fibromyalgia, Chronic Back Pain Endocrine: Yes (OBESITY) Hypothyroidsim, Diabetes, Non-Insulin dep HEENT: No Loss of Vision: Bilateral Hearing Impairment: Denies Cancer: No Psychosocial: Yes Depression Integumentary: Yes (RASH/ACNE UNDER ARMS AND BREAST, scalp psoriasis) Psoriasis Blood Disorders: No Adverse Reaction/Blood Tranf: No (MALIA HUGHES) Family Medical History Alcoholism 09 BROTHER, Onset:Unknown Cancer 03 FATHER, Onset:Unknown 09 BROTHER, Onset:Unknown Cataract 03 MOTHER, Onset:Unknown Congestive heart failure 03 MOTHER, Onset:Unknown Family history: Diabetes mellitus 03 FATHER, Onset:Unknown 03 MOTHER, Onset:Unknown Family history: Thyroid disorder 03 MOTHER, Onset:Unknown Heart disease 03 FATHER, Onset:Unknown History of drug abuse 09 BROTHER, Onset:Unknown Cancer, CAD Over 55 Years Old, Diabetes (MALIA HUGHES) Physical Exam Vital Signs - First Documented 01/28/22 09:24 Temp 37.1 Pulse 107 Resp 18 B/P (MAP) 169/88 (115) Pulse Ox 94 (KYUNG WRIGHT MD) Capillary Refill : Less Than 3 Seconds (MALIA HUGHES) Height: 5'6.00" Weight: 299lbs. 3.0oz. 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 as tested, no motor/sensory deficits, alert, normal mood/affect, oriented x 3 Skin: normal color, warm/dry Lymphatic: no adenopathy (MALIA HUGHES) General Appearance: WD/WN, no apparent distress (KYUNG WRIGHT MD) Progress/Results/Core Measures Suspected Sepsis SIRS Temperature: Pulse: 107 Respiratory Rate: 18 Blood Pressure 169 /88 Mean: 115 (MALIA HUGHES) Results/Orders Lab Results Laboratory Tests Test 01/28/22 09:26 Range/Units Influenza Type A (RT-PCR) Detected H Not Detecte Influenza Type B (RT-PCR) Not Detected Not Detecte SARS-CoV-2 RNA (RT-PCR) Not Detected Not Detecte (KYUNG WRIGHT MD) My Orders Orders - KYUNG WRIGHT MD Covid 19 Inhouse Test (01/28/22 09:30) Influenza A And B By Pcr (01/28/22 09:30) Isolation Central Supply Req (01/28/22 09:30) (KYUNG WRIGHT MD) Vital Signs/I&O 01/28/22 01/28/22 09:24 10:54 Temp 37.1 Pulse 107 105 Resp 18 18 B/P (MAP) 169/88 (115) 130/74 Pulse Ox 94 95 (KYUNG WRIGHT MD) Vital Signs/I&O Capillary Refill : Less Than 3 Seconds (MALIA HUGHES) Blood Pressure Mean: 115 Progress Note : Time: 10:17 Progress Note Patient seen and examined by me, I have reviewed the medical student's history and physical exam and agree with stated documentation. 61-year-old sick with flulike symptoms for the last 5 days. Evaluation today includes physical exam, flu and COVID testing. Patient is positive for the flu. 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 She has been using [id number] medications for her symptoms and continues to feel unwell. Mild shortness of breath, occasionally productive cough. Tolerating oral intake well. Normal output. Occasional scattered wheeze without respiratory distress or hypoxia. Stable vital signs. No clinical or objective findings to warrant imaging or further laboratory studies. She is outside the window for Tamiflu. She is requesting a prescription for Phenergan with codeine. We will give her a small amount of this to get her through the next couple of days. Work note for tomorr and Saturday. All questions are sought and answered. Patient is stable for discharge (KYUNG WRIGHT MD) Departure Impression Primary Impression: Influenza A Disposition: HOME, SELF-CARE Condition: Stable Departure-Patient Inst. Decision time for Depature: 10:19 (KYUNG WRIGHT MD) Referrals: BETH BAIN DO (PCP/Family) Primary Care Physician Patient Instructions: Flu, Adult (DC) Add. Discharge Instructions: Drink plenty of fluids to stay well-hydrated, Gatorade, propel, water. Avoid soda products. You can use [id number] Coricidin HBP for congestion, stuffy runny nose and cough. I have written you a prescription for Phenergan with codeine you can take 1 to 2 teaspoons every 8 hours as needed for cough. This medication will make you sleepy. Do not drive and take it. Codeine can be addictive. Take this only as needed. If you develop any worsening symptoms of shortness of breath, high fever, vomiting or other emergent concerning symptoms please come back to the emergency room for reevaluation Scripts Promethazine/Phenyleph/Codeine (Promethazine Vc-Codeine Soln) 6.25 Mg-5 Mg-10 Mg/5 Ml Syrup 10 ML PO Q8H PRN for cough, #60 ML 1-2 teaspoons every 8 hours as needed for cough Prov: KYUNG WRIGHT MD 01/28/22 Work/School Note: Work Release Form Date Seen in the Emergency Department: Jan 28, 2022 Return to Work: Jan 31, 2022 Verification and Attestation of Medical Student E/M Service A medical student performed and documented this service in my presence. I reviewed and verified all information documented by the medical student and made modifications to such information, when appropriate. I personally performed the physical exam and medical decision making. Kyung Wright, Jan 28, 2022,10:22 (KYUNG WRIGHT MD) Copy Copies To 1: BETH BAIN ANISHA T Jan 28, 2022 10:00 KYUNG WRIGHT MD Jan 28, 2022 10:22
[2022-01-28] MEDS ORDERED: [UNRECOGNIZED DRUG - CODE] PO (10:21)
[2022-01-28 10:54] VITALS: BP 130/74
== END 2022-01-28 10:54 | disposition home or self-care (01) ==
LOC: EDUNIT# 09:17 → ER 09:20
DX: J10.1 Influenza due to other identified influenza virus with other respiratory manifestations (principal); G47.30 Sleep apnea, unspecified; E66.9 Obesity, unspecified; Z68.42 Body mass index [BMI] 45.0-49.9, adult; Z87.891 Personal history of nicotine dependence; Z88.5 Allergy status to narcotic agent; Z20.822 Contact with and (suspected) exposure to COVID-19; Z28.311 Partially vaccinated for COVID-19; Z99.89 Dependence on other enabling machines and devices
CPT/HCPCS: 87636; 99283

== ENCOUNTER → 2022-08-28 | Outpatient (CLI) | payer OTHER ==
[~2022-08-28] MED LIST changes: +[UNRECOGNIZED DRUG - CODE] PO
--- NOTE | 2022-08-28 16:03 | Diagnostic Imaging Report ---
EXAMINATION: Chest 2 view HISTORY: Chest congestion COMPARISON: 08/18/2021 FINDINGS: The lungs are clear without edema or pneumonia. No pleural effusion or pneumothorax. Heart size is normal. IMPRESSION: 1. Clear lungs. Dictated by: Dictated on workstation # [id number]
== END ==
LOC: RAD 08:00
PROVIDERS: ATTEND Family Medicine
DX: R09.89 Other specified symptoms and signs involving the circulatory and respiratory systems (principal)
CPT/HCPCS: 71046